=== PATIENT | female | born 1975 | race Caucasian/White ===

== ENCOUNTER 2016-03-19 10:37 | Emergency (ER) | payer OTHER ==
[2016-03-19 10:42] VITALS: BP 135/94; PULSE 104; TEMP 98.5; BMI 56.7
--- NOTE | 2016-03-19 11:53 | PDOC ---
History of Present Illness - General Chief Complaint: Cold Symptoms Stated Complaint: COUGH, SOB Time Seen by Provider: 03/19/16 11:28 History Source: Patient Exam Limitations: No Limitations - History of Present Illness Initial Comments: 03/19/16 11:52 CHIEF COMPLAINT: HISTORY OF PRESENT ILLNESS: peripheral neuropathy, breast CA s/p chemo/RTX/left mastectomy (completed chemo 2 yrs ago), HTN, fatty liver disease, anemia, asthma (on daily Advair and albuterol prn, completed one month course of prednisone for exacerbation one month ago, no recent hospitalizations), hiatal hernia, GERD, lumbar disc herniation and 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 She presents today complaining of three days of shortness of breath and cough productive of yellow and green sputum. She denies wheezing and has not been using nebulizer treatments at home. She denies fevers/chills. She had an episode of chest pain two days ago, but it has not recurred. She denies LE swelling above baseline or calf pain. She notes that her father was recently diagnosed with URI. She also reports that she has had shortness of breath/ decreased ET for about one month, but has not yet been evaluated for this. V/s on arrival are notable for P 104. REVIEW OF SYSTEMS: GENERAL/CONSTITUTIONAL: No fever or chills. No weakness. No weight change. HEAD, EYES, EARS, NOSE AND THROAT: No change in vision. No ear pain or discharge. No sore throat. CARDIOVASCULAR: Chest pain two days ago. RESPIRATORY: See HPI. GASTROINTESTINAL: No nausea, vomiting, diarrhea or constipation. GENITOURINARY: No dysuria, frequency, or change in urination. MUSCULOSKELETAL: No joint or muscle swelling or pain. No neck or back pain. SKIN: No rash or easy bruising. NEUROLOGIC: No headache, vertigo, loss of consciousness, or loss of sensation. PSYCHIATRIC: No depression or anxiety. ENDOCRINE: No increased thirst. No abnormal weight change. HEMATOLOGIC/LYMPHATIC: History of anemia. History of DVTs on Xarelto. ALLERGIC/IMMUNOLOGIC: No hives or skin allergy. No latex allergy. PHYSICAL EXAM: GENERAL: The patient is awake, alert, and fully oriented, in no acute distress. ENT: Pupils equal, round and reactive to light, extraocular movements intact, sclera anicteric, conjunctiva clear. Neck supple. LUNGS: Mildly tachypneic. Clear to auscultation bilaterally. Normal excursion. No respiratory distress or use of accessory muscles. Coughing. CV: RRR, S1/S2, no MRG. Cap refill < 2 sec. ABDOMEN: Soft, obese, non-tender. EXTREMITIES: Trace LE edema bilaterally, no calf tenderness. NEUROLOGICAL: Normal speech, normal gait. CN II-XII grossly intact. PSYCH: Normal mood, normal affect. SKIN: Warm, dry, normal turgor, no rashes or lesions noted. Past History - Past Medical History Allergies/Adverse Reactions: Allergies Allergy/AdvReac Type Severity Reaction Status Date / Time No Known Drug Allergies Allergy Verified 03/19/16 10:43 Home Medications: Ambulatory Orders Omeprazole [Prilosec (RX)] 40 mg PO DAILY 05/20/12 Bupropion HCl [Wellbutrin Xl -] 150 mg PO TID 03/21/15 Gabapentin [Neurontin -] 300 mg PO TID 03/21/15 Valsartan/Hydrochlorothiazide [Valsartan-Hctz 320-25 mg Tab] 1 each PO DAILY 08/29 Aripiprazole 2 mg PO HS 07/17/15 Citalopram Hydrobromide [Citalopram HBr] 20 mg PO DAILY 07/17/15 Butalb/Acetaminophen/Caffeine [Vyfecs-Jmijyjkc-Kxpi 50-300-40] 1 each PO TID PRN 12/18/15 Albuterol 0.083% Nebulizer Marlyn [Ventolin 0.083% Nebulizer Soln -] 1 neb NEB QID PRN 01/09/16 Cyanocobalamin (Vitamin B-12) [Vitamin B12] 600 mcg PO DAILY 02/04/16 Fluticasone/Salmeterol [Advair Hfa 230-21 Mcg Inhaler] 1 inh PO BID 02/04/16 Iron 18 mg PO DAILY 02/04/16 Metformin HCl [Glucophage -] 500 mg PO BID 02/04/16 Pramipexole Dihydrochloride [Mirapex -] 0.25 mg PO BID 02/04/16 Rivaroxaban [Xarelto] 1 each PO DAILY 02/04/16 Tamoxifen Citrate 10 mg PO DAILY 02/04/16 Tiotropium [place] [Spiriva] 1 inh PO DAILY 02/04/16 Zaleplon 10 mg PO HS 02/04/16 Azithromycin [Zithromax 250mg Tablets -] 250 mg PO UTDICT #6 tab 03/19/16 Promethazine/Phenyleph/Codeine [Promethazine Vc-Codeine Syrup] 5 ml PO QID PRN # 118 ml MDD 20 mls 03/19/16 Anemia: Yes Asthma: Yes Cancer: Yes (breast LEFT) Cardiac Disorders: (DVTs) CVA: No COPD: No CHF: No DVT: Yes Dementia: No Diabetes: Yes GI Disorders: Yes (hiatal hernia & gerd) Disorders: Yes (microscopic hematuria) HTN: Yes Hypercholesterolemia: No Liver Disease: Yes (fatty liver) Psychiatric Problems: Yes (depression) Suicide Attempt (Hx): No Seizures: No Thyroid Disease: No - Surgical History Abdominal Surgery: No Appendectomy: No Cardiac Surgery: No Cholecystectomy: No Lung Surgery: No Neurologic Surgery: No Orthopedic Surgery: No - Reproductive History Cervical CA: No Dysfunctional Uterine Bleeding: No Ectopic : No Endometrial CA: No Polycystic Ovaries: No Tubal Ligation: No - Immunization History Immunization Up to Date: Yes - Psycho/Social/Smoking Cessation Hx Anxiety: No Suicidal Ideation: No Smoking Status: Yes Smoking History: Former smoker Have you smoked in the past 12 months: No Number of Cigarettes Smoked Daily: 0 If you are a former smoker, when did you quit?: 21 YRS Cigars Per Day: 0 Information on smoking cessation initiated: No Hx Alcohol Use: Yes (SOCIAL) Drug/Substance Use Hx: No Substance Use Type: None Hx Substance Use Treatment: Yes (6 YEARS AGO) *Physical Exam - Vital Signs Last Vital Signs Temp Pulse Resp BP Pulse Ox 98.5 F 104 H 20 135/94 98 03/19/16 10:39 03/19/16 10:39 03/19/16 10:39 03/19/16 10:39 03/19/16 10:39 ED Treatment Course - LABORATORY CBC & Chemistry Diagram: 03/19/16 12:23 03/19/16 12:23 - ADDITIONAL ORDERS Additional order review: Laboratory Results 03/19/16 11:28 Urine HCG, Qual Negative Medical Decision Making - Medical Decision Making 03/19/16 13:08 A/P: 40 year old female with shortness of breath/MADDEN and cough productive of yellow/green sputum. Suspect URI vs PNA vs asthma exacerbation vs. possible COPD with long smoking history. PE considered but not most likely etiology as has been taking Xarelto, also has sick contact with similar symptoms. -EKG and cardiac profile (episode of chest pain 2 days ago) -Labs including CBC, comp, BNP -CXR to rule out infiltrate -DuoNeb for cough/SOB -Influenza swab -Reassess Hgb 9.7, baseline 03/19/16 13:22 TNI <0.02. BNP within normal limits at 18. CXR: no infiltrate Flu neg Patient feeling better after DuoNeb *DC/Admit/Observation/Transfer Diagnosis at time of Disposition: Cough - Discharge Dispostion Disposition: HOME Condition at time of disposition: Improved Admit: No - Prescriptions Prescriptions: Promethazine/Phenyleph/Codeine [Promethazine Vc-Codeine Syrup] 5 ml PO QID PRN # 118 ml MDD 20 mls PRN Reason: Cough Azithromycin [Zithromax 250mg Tablets -] 250 mg PO UTDICT #6 tab - Referrals Referrals: Tyrone Rodriguez MD [Primary Care Provider] - - Patient Instructions Printed Discharge Instructions: DI for Acute Bronchitis Additional Instructions: You were seen today for productive cough and shortness of breath. Your chest xray and lab work (including cardiac labs) were all normal. Continue all of your prescribed medications. Take azithromycin as prescribed for bronchitis and codeine/phenergan syrup for cough when you are not driving or working. 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 Return here for recurrent chest pain, worsening shortness of breath, or any other concerning symptoms. - Post Discharge Activity Work/School Note: Back to Work
[2016-03-19] MEDS ORDERED: ALBUTEROL SO4 2.5/IPRATROPIUM 0.5 INH SOL 3 ML VIAL.NEB. NEB ONE ×2 (12:38→12:50)
[2016-03-19 12:46] LABS: BASOPHIL 0.7 % (0-2.0); EOSINOPHIL 3.3 % (0-4.5); MCH 21.1 pg (25.7-33.7); MCHC 31.7 g/dl (32.0-36.0); MEAN CELL VOLUME 66.6 fl (80-96); MEAN PLT VOLUME 9.7 fl (7.5-11.1); NEUTROPHILS 70.2 % (42.8-82.8); PLATELET COUNT 224 K/MM3 (134-434); WHITE BLOOD COUNT 8.5 K/mm3 (4.0-10.0)
[2016-03-19 13:00] LABS: INR 1.08 (0.82-1.09); PROTHROMBIN TIME (PATIENT) 11.9 SEC (9.98-11.88)
[2016-03-19 13:13] LABS: ALBUMIN 3.3 g/dl (3.4-5.0); ANION GAP 8 (8-16); CALCIUM 8.3 mg/dL (8.5-10.1); CO2 25 mmol/L (21-32); CREATININE 0.8 mg/dL (0.55-1.02); GLUCOSE,RANDOM 114 mg/dL (74-106); SGOT/AST 22 U/L (15-37); SGPT/ALT 24 U/L (12-78)
[2016-03-19 13:17] LABS: ALK PHOS 93 U/L (45-117); BILIRUBIN,TOTAL 0.2 mg/dL (0.2-1.0); TOT PROT 7.5 g/dl (6.4-8.2); TROPONIN I < 0.02 ng/ml (0.00-0.05)
--- NOTE | 2016-03-20 16:31 | EKG ---
Test Reason : Blood Pressure : / mmHG Vent. Rate : 087 BPM Atrial Rate : 087 BPM P-R Int : 158 ms QRS Dur : 088 ms QT Int : 372 ms P-R-T Axes : 017 008 042 degrees QTc Int : 447 ms POOR DATA QUALITY, INTERPRETATION MAY BE ADVERSELY AFFECTED NORMAL SINUS RHYTHM NORMAL ECG WHEN COMPARED WITH ECG OF 04-FEB-2016 12:09, NO SIGNIFICANT CHANGE WAS FOUND Confirmed by NANO RAWLS, CARLOS ALBERTO ([id number]) on 03/20/2016 4:30:42 PM Referred By: NICKY Confirmed By:CARLOS ALBERTO MCGILL MD
== END 2016-03-19 13:34 | disposition home or self-care (01) ==
LOC: JERFT 10:37
PROC: 3E0F7GC Introduction of Other Therapeutic Substance into Respiratory Tract, Via Natural or Artificial Opening (ICD-10-PCS; principal; 2016-03-19)
DX: R05 Cough (principal); Z85.3 Personal history of malignant neoplasm of breast; I10 Essential (primary) hypertension; J45.909 Unspecified asthma, uncomplicated; K21.9 Gastro-esophageal reflux disease without esophagitis; Z79.01 Long term (current) use of anticoagulants; Z86.718 Personal history of other venous thrombosis and embolism; K76.0 Fatty (change of) liver, not elsewhere classified; Z87.891 Personal history of nicotine dependence
CPT/HCPCS: 36415; 71020-TC; 80053; 82550; 83880; 84484; 84703; 85025; 85610; 87804; 93005; 93010; 94640; 99281-25

== ENCOUNTER 2016-05-20 12:05 | Emergency (ER) | payer OTHER ==
[2016-05-20 12:15] VITALS: BP 161/103; PULSE 89; TEMP 99; BMI 58.3
[2016-05-20] MEDS ORDERED: ALBUTEROL SO4 2.5/IPRATROPIUM 0.5 INH SOL 3 ML VIAL.NEB. NEB ONE ×2 (13:13)
--- NOTE | 2016-05-20 13:13 | PDOC ---
History of Present Illness - General Chief Complaint: Respiratory Stated Complaint: DIFF BREATHING, WHEEZING Time Seen by Provider: 05/20/16 12:45 - History of Present Illness Initial Comments: 05/20/16 15:19 Chief complaint: Nasal congestion, hoarseness, and wheezing History of present illness: Patient with severe asthma complains of above symptoms for several days, worsening. Spoke to her doctor, who recommended she be evaluated in the emergency room. She is using her home nebulizer. She denies chest pain or shortness of breath Review of systems: As above. In addition, no fever/chills, sore throat, chest pain, abdominal pain, nausea, vomiting, diarrhea, urinary tract symptoms Past medical history: Extensive past medical history including schizophrenia, asthma, der-bzyezjm-[id number] diabetes, breast cancer, and blood clots Medications: Omeprazole, Wellbutrin, gabapentin, fell losartan hydrochlorothiazide, citalopram, albuterol, metformin, Mirapex, xarelto, tamoxifen, Spiriva, and recently azithromycin and promethazine with codeine ALLERGIES: None Social history: Functional, lives with family, no tobacco alcohol or drugs known Family history: Reviewed and positive for diabetes Physical exam: Alert oriented cooperative in no acute distress. Respiratory status appears stable without tachypnea or dyspnea. Voice is hoarse. Afebrile, vital signs show mildly elevated blood pressure and pulse but normal oxygen saturation of 99% and normal respiratory rate of 16 and unlabored There is no stridor but voice is hoarse. PERRLA, fundi benign, ENT is clear except for mild nasal congestion. Specifically, there is not injected, there is no erythema, exudate, swelling, or mass in the oropharynx and no evidence of angioedema in the posterior pharynx , tongue, lips, or face. Neck supple without bruit mass or nodes Lungs are clear to P&A, full breath sounds throughout bilaterally, no wheezing rales or rhonchi CV regular without murmur rub or gallop Abdomen benign Extremities no CCE. No calf swelling or tenderness Neurological C2 to 12 intact. No focal sensory or motor deficits. Gait stable and unimpaired Skin clear, no rash, adequate turgor and what mucous membranes Impression: Patient appears to have an upper respiratory infection with laryngitis. Breath sounds are not diminished and there is no wheezing or dyspnea , therefore this does not appear to be an asthma attack or bronchospasm. Plan: Consider symptomatic treatment, augment steroid therapy as recommended by primary physician, and follow up as directed. Return to ER if there is shortness of breath, chest pain, or fever. Patient fully ambulatory and in no distress upon discharge with family member to follow-up as directed Past History - Past Medical History Allergies/Adverse Reactions: Allergies Allergy/AdvReac Type Severity Reaction Status Date / Time No Known Drug Allergies Allergy Verified 05/20/16 12:10 Home Medications: Ambulatory Orders Omeprazole [Prilosec (RX)] 40 mg PO DAILY 05/20/12 Bupropion HCl [Wellbutrin Xl -] 150 mg PO TID 03/21/15 Gabapentin [Neurontin -] 300 mg PO TID 03/21/15 Valsartan/Hydrochlorothiazide [Valsartan-Hctz 320-25 mg Tab] 1 each PO DAILY 08/29 Aripiprazole 2 mg PO HS 07/17/15 Citalopram Hydrobromide [Citalopram HBr] 20 mg PO DAILY 07/17/15 Butalb/Acetaminophen/Caffeine [Dmfmer-Zafodhje-Zlvq 50-300-40] 1 each PO TID PRN 12/18/15 Albuterol 0.083% Nebulizer Marlyn [Ventolin 0.083% Nebulizer Soln -] 1 neb NEB QID PRN 01/09/16 Cyanocobalamin (Vitamin B-12) [Vitamin B12] 600 mcg PO DAILY 02/04/16 Fluticasone/Salmeterol [Advair Hfa 230-21 Mcg Inhaler] 1 inh PO BID 02/04/16 Iron 18 mg PO DAILY 02/04/16 Metformin HCl [Glucophage -] 500 mg PO BID 02/04/16 Pramipexole Dihydrochloride [Mirapex -] 0.25 mg PO BID 02/04/16 Rivaroxaban [Xarelto] 1 each PO DAILY 02/04/16 Tamoxifen Citrate 10 mg PO DAILY 02/04/16 Tiotropium [place] [Spiriva] 1 inh PO DAILY 02/04/16 Zaleplon 10 mg PO HS 02/04/16 Azithromycin [Zithromax 250mg Tablets -] 250 mg PO UTDICT #6 tab 03/19/16 Promethazine/Phenyleph/Codeine [Promethazine Vc-Codeine Syrup] 5 ml PO QID PRN # 118 ml MDD 20 mls 03/19/16 Anemia: Yes Asthma: Yes Cancer: Yes (breast LEFT) Cardiac Disorders: (DVTs) CVA: No COPD: No CHF: No DVT: Yes Dementia: No Diabetes: Yes GI Disorders: Yes (hiatal hernia & gerd) Disorders: Yes (microscopic hematuria) HTN: Yes Hypercholesterolemia: No Liver Disease: Yes (fatty liver) Psychiatric Problems: Yes (depression) Suicide Attempt (Hx): No Seizures: No Thyroid Disease: No - Surgical History Abdominal Surgery: No Appendectomy: No Cardiac Surgery: No Cholecystectomy: No Lung Surgery: No Neurologic Surgery: No Orthopedic Surgery: No - Reproductive History Cervical CA: No Dysfunctional Uterine Bleeding: No Ectopic : No Endometrial CA: No Polycystic Ovaries: No Tubal Ligation: No - Immunization History Immunization Up to Date: Yes - Psycho/Social/Smoking Cessation Hx Anxiety: No Suicidal Ideation: No Smoking Status: Yes Smoking History: Former smoker Have you smoked in the past 12 months: No Number of Cigarettes Smoked Daily: 0 If you are a former smoker, when did you quit?: 21 YRS Cigars Per Day: 0 Information on smoking cessation initiated: No Hx Alcohol Use: No Drug/Substance Use Hx: No Substance Use Type: None Hx Substance Use Treatment: Yes (6 YEARS AGO) *Physical Exam - Vital Signs Last Vital Signs Temp Pulse Resp BP Pulse Ox 99 F 89 26 H 161/103 99 05/20/16 12:05 05/20/16 12:05 05/20/16 12:05 05/20/16 12:05 05/20/16 12:05 *DC/Admit/Observation/Transfer Diagnosis at time of Disposition: Viral upper respiratory tract infection - Discharge Dispostion Disposition: HOME Condition at time of disposition: Stable Admit: No - Referrals Referrals: Tyrone Rodriguez MD [Primary Care Provider] - 2 Days - Patient Instructions Printed Discharge Instructions: DI for Viral Upper Respiratory Infection -- Adult Additional Instructions: Increase prednisone to 40 mg daily. Taper as directed by your doctor Return to ER if you develop worsening shortness of breath, chest pain, fever, or productive cough Use your nebulizer at home as needed. Take your other medications as directed.
[2016-05-20] MEDS ORDERED: DEXAMETHASONE SOD PHOSPHATE 4 MG/1 ML VIAL IM ONE (13:54)
[2016-05-20] MEDS ORDERED: DEXAMETHASONE SOD PHOSPHATE 4 MG/1 ML VIAL ONE (14:09)
== END 2016-05-20 14:20 | disposition home or self-care (01) ==
LOC: FER 12:05
PROC: 3E0F7GC Introduction of Other Therapeutic Substance into Respiratory Tract, Via Natural or Artificial Opening (ICD-10-PCS; principal; 2016-05-20)
PROC: 3E023GC Introduction of Other Therapeutic Substance into Muscle, Percutaneous Approach (ICD-10-PCS; 2016-05-20)
DX: J06.9 Acute upper respiratory infection, unspecified (principal); B97.89 Other viral agents as the cause of diseases classified elsewhere; K76.0 Fatty (change of) liver, not elsewhere classified; Z85.3 Personal history of malignant neoplasm of breast; Z86.718 Personal history of other venous thrombosis and embolism; Z79.01 Long term (current) use of anticoagulants; F32.9 Major depressive disorder, single episode, unspecified; Z87.891 Personal history of nicotine dependence; Z79.84 Long term (current) use of oral hypoglycemic drugs
CPT/HCPCS: 94640; 96372; 99283-25

== ENCOUNTER 2016-06-16 17:09 | Emergency (ER) | payer OTHER ==
[2016-06-16 17:25] VITALS: BP 137/79; PULSE 102; TEMP 98.9; BMI 58.6
--- NOTE | 2016-06-16 18:12 | PDOC ---
History of Present Illness - General History Source: Patient Exam Limitations: No Limitations - History of Present Illness Initial Comments: 06/16/16 18:37 Patient is a 41 year old female with a significant past medical history of NIDDM , peripheral neuropathy, breast CA s/p chemo/RTX/left mastectomy (completed chemo 2013), HTN, fatty liver disease, anemia, asthma (on daily Advair and albuterol prn, completed one month course of prednisone for exacerbation one month ago, no recent hospitalizations), hiatal hernia, GERD, lumbar disc herniation and DVT x 2 (on Xarelto) who presents today to the ED with complaint of nausea, vomiting, diarrhea and fever since yesterday. Patient reports 15 episodes of brown non bilious non bloody diarrhea and 3 episodes of vomiting non bilious non bloody. She reports left lumbar pain that radiates to the LLQ. She notes that 3:30 PM. She denies dysuria, hematuria, urgency, hesitancy. SH: former smoker 21 years. Denies alcohol or drug. <Crista Jewell - Last Filed: 06/16/16 18:39> <Didi Gonzalez - Last Filed: 06/16/16 22:02> - General Chief Complaint: Vomiting/Diarrhea Stated Complaint: VOMITING/DIARRHEA/BACK PAIN Time Seen by Provider: 06/16/16 18:09 Past History <Crista Jewell - Last Filed: 06/16/16 18:39> - Past Medical History Anemia: Yes Asthma: Yes Cancer: Yes (breast LEFT) Cardiac Disorders: (DVTs) CVA: No COPD: No CHF: No DVT: Yes Dementia: No Diabetes: Yes GI Disorders: Yes (hiatal hernia & gerd) Disorders: Yes (microscopic hematuria) HTN: Yes Hypercholesterolemia: No Liver Disease: Yes (fatty liver) Psychiatric Problems: Yes (depression) Suicide Attempt (Hx): No Seizures: No Thyroid Disease: No - Surgical History Abdominal Surgery: No Appendectomy: No Cardiac Surgery: No Cholecystectomy: No Lung Surgery: No Neurologic Surgery: No Orthopedic Surgery: No - Reproductive History Cervical CA: No Dysfunctional Uterine Bleeding: No Ectopic : No Endometrial CA: No Polycystic Ovaries: No Tubal Ligation: No - Immunization History Immunization Up to Date: Yes - Psycho/Social/Smoking Cessation Hx Anxiety: No Suicidal Ideation: No Smoking Status: Yes Smoking History: Former smoker Have you smoked in the past 12 months: No Number of Cigarettes Smoked Daily: 0 If you are a former smoker, when did you quit?: 21 YRS Cigars Per Day: 0 Information on smoking cessation initiated: No Hx Alcohol Use: No Drug/Substance Use Hx: No Substance Use Type: None Hx Substance Use Treatment: Yes (6 YEARS AGO) <CarlosDidi Tanika - Last Filed: 06/16/16 22:02> - Past Medical History Allergies/Adverse Reactions: Allergies Allergy/AdvReac Type Severity Reaction Status Date / Time No Known Drug Allergies Allergy Verified 06/16/16 17:25 Home Medications: Ambulatory Orders Omeprazole [Prilosec (RX)] 40 mg PO DAILY 05/20/12 Bupropion HCl [Wellbutrin Xl -] 150 mg PO TID 03/21/15 Gabapentin [Neurontin -] 300 mg PO TID 03/21/15 Valsartan/Hydrochlorothiazide [Valsartan-Hctz 320-25 mg Tab] 1 each PO DAILY 08/29 Aripiprazole 2 mg PO HS 07/17/15 Citalopram Hydrobromide [Citalopram HBr] 20 mg PO DAILY 07/17/15 Butalb/Acetaminophen/Caffeine [Xnrifn-Coxwppov-Oghh 50-300-40] 1 each PO TID PRN 12/18/15 Albuterol 0.083% Nebulizer Marlyn [Ventolin 0.083% Nebulizer Soln -] 1 neb NEB QID PRN 01/09/16 Cyanocobalamin (Vitamin B-12) [Vitamin B12] 600 mcg PO DAILY 02/04/16 Fluticasone/Salmeterol [Advair Hfa 230-21 Mcg Inhaler] 1 inh PO BID 02/04/16 Iron 18 mg PO DAILY 02/04/16 Metformin HCl [Glucophage -] 500 mg PO BID 02/04/16 Pramipexole Dihydrochloride [Mirapex -] 0.25 mg PO BID 02/04/16 Rivaroxaban [Xarelto] 1 each PO DAILY 02/04/16 Tamoxifen Citrate 10 mg PO DAILY 02/04/16 Tiotropium [place] [Spiriva] 1 inh PO DAILY 02/04/16 Zaleplon 10 mg PO HS 02/04/16 Azithromycin [Zithromax 250mg Tablets -] 250 mg PO UTDICT #6 tab 03/19/16 Promethazine/Phenyleph/Codeine [Promethazine Vc-Codeine Syrup] 5 ml PO QID PRN # 118 ml MDD 20 mls 03/19/16 Ondansetron [Zofran Odt -] 4 mg SL TID PRN #6 od.tablet 06/16/16 Review of Systems - Review of Systems Able to Perform ROS?: Yes Comments:: 06/16/16 18:38 CONSTITUTIONAL: Absent: fever, chills, diaphoresis, generalized weakness, malaise, loss of appetite HEENT: Absent: rhinorrhea, nasal congestion, throat pain, throat swelling, difficulty swallowing, mouth swelling, ear pain, eye pain, visual Changes CARDIOVASCULAR: Absent: chest pain, syncope, palpitations, irregular heart rate, lightheadedness , peripheral edema RESPIRATORY: Absent: cough, shortness of breath, dyspnea with exertion, orthopnea, wheezing, stridor, hemoptysis GASTROINTESTINAL: Present: nausea, vomiting, diarrhea Absent: abdominal pain, abdominal distension, constipation, melena, hematochezia GENITOURINARY: Absent: dysuria, frequency, urgency, hesitancy, hematuria, flank pain, genital pain MUSCULOSKELETAL: Present: lumbar pain Absent: myalgia, arthralgia, joint swelling SKIN: Absent: rash, itching, pallor HEMATOLOGIC/IMMUNOLOGIC: Absent: easy bleeding, easy bruising, lymphadenopathy, frequent infections ENDOCRINE: Absent: unexplained weight gain, unexplained weight loss, heat intolerance, cold intolerance NEUROLOGIC: Absent: headache, focal weakness or paresthesias, dizziness, unsteady gait, seizure, mental status changes, bladder or bowel incontinence PSYCHIATRIC: Absent: anxiety, depression, suicidal or homicidal ideation, hallucinations. <Crista Jewell - Last Filed: 06/16/16 18:39> *Physical Exam - Vital Signs Last Vital Signs Temp Pulse Resp BP Pulse Ox 98.9 F 102 H 18 137/79 96 06/16/16 17:21 06/16/16 17:21 06/16/16 17:21 06/16/16 17:21 06/16/16 17:21 - Physical Exam Comments: 06/16/16 18:40 GENERAL: Well developed, well nourished. Awake and alert. No acute distress. HEENT: Normocephalic, atraumatic. PERRLA, EOMI. No conjunctival pallor. Sclera are non- icteric. Moist mucous membranes. Oropharynx is clear. NECK: Supple. Full ROM. No JVD. Carotid pulses 2+ and symmetric, without bruits. No thyromegaly. No lymphadenopathy. CARDIOVASCULAR: Regular rate and rhythm. No murmurs, rubs, or gallops. Distal pulses are 2+ and symmetric. PULMONARY: No evidence of respiratory distress. Lungs clear to auscultation bilaterally. No wheezing, rales or rhonchi. ABDOMINAL: Soft. Non-tender. Non-distended. No rebound or guarding. No organomegaly. Normoactive bowel sounds. MUSCULOSKELETAL +mild lumbar tenderness on palpation. Normal range of motion at all joints. No bony deformities. No CVA tenderness. EXTREMITIES: No cyanosis. No clubbing. No edema. No calf tenderness. SKIN: Warm and dry. Normal capillary refill. No rashes. No jaundice. NEUROLOGICAL: Alert, awake, appropriate. Cranial nerves 2-12 intact. No deficits to light touch and temperature in face, upper extremities and lower extremities. No motor deficits in the in face, upper extremities and lower extremities. Normoreflexic in the upper and lower extremities. Normal speech. PSYCHIATRIC: Cooperative. Good eye contact. Appropriate mood and affect. <Crista Jewell - Last Filed: 06/16/16 18:39> - Vital Signs Last Vital Signs Temp Pulse Resp BP Pulse Ox 98.9 F 102 H 18 137/79 96 06/16/16 17:21 06/16/16 17:21 06/16/16 17:21 06/16/16 17:21 06/16/16 17:21 <Didi Gonzalez - Last Filed: 06/16/16 22:02> ED Treatment Course - Medications Given in the ED: ED Medications Discontinued Medications Generic Name Dose Route Start Last Admin Trade Name Freq PRN Reason Stop Dose Admin Ondansetron HCl 4 mg 06/16/16 18:18 06/16/16 18:34 Zofran Injection IVPB 06/16/16 18:19 4 mg ONCE ONE Administration <Crista Jewlel - Last Filed: 06/16/16 18:39> - LABORATORY CBC & Chemistry Diagram: 06/16/16 18:31 04/03/17 18:39 <Didi Gonzalez - Last Filed: 06/16/16 22:02> Medical Decision Making - Medical Decision Making 06/16/16 21:33 41 yo female p/w NVD for 1 day -benign abd exam - <Didi Gonzalez - Last Filed: 06/16/16 22:02> *DC/Admit/Observation/Transfer - Attestations Scribe Attestion: 06/16/16 18:41 Documentation prepared by WILLIAM Serna, acting as medical equipment sales for Didi Gonzalez MD. <Crista Jewell - Last Filed: 06/16/16 18:39> <Didi Gonzalez - Last Filed: 06/16/16 22:02> Diagnosis at time of Disposition: Gastroenteritis - Discharge Dispostion Disposition: HOME Condition at time of disposition: Stable - Prescriptions Prescriptions: Ondansetron [Zofran Odt -] 4 mg SL TID PRN #6 od.tablet PRN Reason: Nausea And/Or Vomiting - Referrals Referrals: Tyrone Rodriguez MD [Primary Care Provider] - - Patient Instructions Printed Discharge Instructions: Rotavirus, DI for Viral Gastroenteritis -- Adult Additional Instructions: please mixing picker tender your antibiotics at your pharmacy return if your symptoms persist
[2016-06-16] MEDS ORDERED: ONDANSETRON 4 MG/2 ML VIAL IVPB ONE (18:18)
[2016-06-16] MEDS ORDERED: SODIUM CHLORIDE 1,000 ML IV STA (18:18)
[2016-06-16] MEDS ORDERED: ONDANSETRON 4 MG/2 ML VIAL ONE (18:21)
[2016-06-16 18:48] LABS: BASOPHIL 0.7 % (0-2.0); EOSINOPHIL 1.2 % (0-4.5); MCHC 30.7 g/dl (32.0-36.0); MEAN CELL VOLUME 60.3 fl (80-96); MEAN PLT VOLUME 9.2 fl (7.5-11.1); NEUTROPHILS 77.7 % (42.8-82.8); PLATELET COUNT 227 K/MM3 (134-434); WHITE BLOOD COUNT 6.9 K/mm3 (4.0-10.0)
[2016-06-16 18:53] LABS: MCH 18.5 pg (25.7-33.7)
[2016-06-16 19:59] LABS: ANISOCYTOSIS 2+; HYPOCHROMIA 3+; MICROCYTOSIS 2+; PLATELET ESTIMATE ADEQUATE (NORMAL)
[2016-06-16 20:35] LABS: ALBUMIN 3.1 g/dl (3.4-5.0); ALK PHOS 80 U/L (45-117); ANION GAP 11 (8-16); BILIRUBIN,TOTAL 0.2 mg/dL (0.2-1.0); CALCIUM 7.8 mg/dL (8.5-10.1); CO2 22 mmol/L (21-32); CREATININE 0.9 mg/dL (0.55-1.02); GLUCOSE,RANDOM 84 mg/dL (74-106); SGOT/AST 53 U/L (15-37); SGPT/ALT 42 U/L (12-78); TOT PROT 7.4 g/dl (6.4-8.2)
== END 2016-06-16 22:56 | disposition home or self-care (01) ==
LOC: JER 17:09
PROC: 3E033GC Introduction of Other Therapeutic Substance into Peripheral Vein, Percutaneous Approach (ICD-10-PCS; principal; 2016-06-16)
DX: K52.9 Noninfective gastroenteritis and colitis, unspecified (principal); I10 Essential (primary) hypertension; J45.909 Unspecified asthma, uncomplicated; N11.9 Chronic tubulo-interstitial nephritis, unspecified; Z79.84 Long term (current) use of oral hypoglycemic drugs; E78.00 Pure hypercholesterolemia, unspecified; K76.0 Fatty (change of) liver, not elsewhere classified; G62.9 Polyneuropathy, unspecified; Z85.3 Personal history of malignant neoplasm of breast
CPT/HCPCS: 36415; 80053; 85025; 96374; 99282-25

== ENCOUNTER 2016-10-18 03:24 | Emergency (ER) | payer OTHER ==
[2016-10-18 03:50] VITALS: BP 89/72; PULSE 88; TEMP 97.6; BMI 56.7
--- NOTE | 2016-10-18 04:14 | PDOC ---
Attending Attestation - Resident Resident Name: Ashok Denny - HPI HPI: 10/18/16 05:27 Pt comes with right sided truncal rash at T6 area. Painful. Pt has had shingles in the past on her face. 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 Pt was given NSS and valtrex and ofirmev in the ER. Home with valtrex and motrin. - Physicial Exam PE: 10/18/16 05:29 Agree with resident exam - Medical Decision Making 10/18/16 05:29 Home with valtex and analgesia.
[2016-10-18] MEDS ORDERED: valACYclovir HCL 1000 MG TABLET PO ONE (04:15)
[2016-10-18] MEDS ORDERED: ACETAMINOPHEN 1000 MG/100 ML VIAL (NON FORMULARY) IVPB ONE (04:16)
[2016-10-18] MEDS ORDERED: SODIUM CHLORIDE 0.9% 500 ML INFUS.BAG IV ONE (04:16)
[2016-10-18] MEDS ORDERED: ACETAMINOPHEN INJECTION 100 ML IVPB ONE (04:31)
--- NOTE | 2016-10-18 05:10 | PDOC ---
History of Present Illness - General Chief Complaint: Rash Stated Complaint: RASH Time Seen by Provider: 10/18/16 03:57 - History of Present Illness Initial Comments: 10/18/16 05:05 41 yo F with complex medical history presents with rash. She states that 24 hours ago developed rash under right breast fold below nipple. Rash has had rapid progression in 24 hours with redness, and pain associated with it. Reports taking 3 different OTC topical creams. Pt. also endorses 3 episodes of vomiting, and lightheadedness within the past 24 hours. Denies hemoptysis, fevers/chills, cough, SOB. Adequate PO intake/fluid hydration. States that she has been on 4 day oral prednisone and antibiotic regimen for recent bronchitis. Past History - Past Medical History Allergies/Adverse Reactions: Allergies Allergy/AdvReac Type Severity Reaction Status Date / Time No Known Drug Allergies Allergy Verified 10/18/16 03:44 Home Medications: Ambulatory Orders Omeprazole [Prilosec (RX)] 40 mg PO DAILY 05/20/12 Bupropion HCl [Wellbutrin Xl -] 150 mg PO TID 03/21/15 Gabapentin [Neurontin -] 300 mg PO TID 03/21/15 Valsartan/Hydrochlorothiazide [Valsartan-Hctz 320-25 mg Tab] 1 each PO DAILY 08/29 Aripiprazole 2 mg PO HS 07/17/15 Citalopram Hydrobromide [Citalopram HBr] 20 mg PO DAILY 07/17/15 Butalb/Acetaminophen/Caffeine [Ztfxai-Kygaspgd-Wcrp 50-300-40] 1 each PO TID PRN 12/18/15 Albuterol 0.083% Nebulizer Marlyn [Ventolin 0.083% Nebulizer Soln -] 1 neb NEB QID PRN 01/09/16 Cyanocobalamin (Vitamin B-12) [Vitamin B12] 600 mcg PO DAILY 02/04/16 Fluticasone/Salmeterol [Advair Hfa 230-21 Mcg Inhaler] 1 inh PO BID 02/04/16 Iron 18 mg PO DAILY 02/04/16 Metformin HCl [Glucophage -] 500 mg PO BID 02/04/16 Pramipexole Dihydrochloride [Mirapex -] 0.25 mg PO BID 02/04/16 Rivaroxaban [Xarelto] 1 each PO DAILY 02/04/16 Tamoxifen Citrate 10 mg PO DAILY 02/04/16 Tiotropium [place] [Spiriva] 1 inh PO DAILY 02/04/16 Zaleplon 10 mg PO HS 02/04/16 Promethazine/Phenyleph/Codeine [Promethazine Vc-Codeine Syrup] 5 ml PO QID PRN # 118 ml MDD 20 mls 03/19/16 Ondansetron [Zofran Odt -] 4 mg SL TID PRN #6 od.tablet 06/16/16 Ibuprofen [Motrin -] 600 mg PO TID #30 tablet 10/18/16 Valacyclovir HCl [Valtrex -] 1,000 mg PO TID #21 tablet 10/18/16 Anemia: Yes (Iron deficiency) Asthma: Yes Cancer: Yes (breast LEFT) Cardiac Disorders: (DVTs) CVA: No COPD: No CHF: No DVT: Yes Dementia: No Diabetes: Yes GI Disorders: Yes (hiatal hernia, GERD) Disorders: Yes (microscopic hematuria) HTN: Yes Hypercholesterolemia: No Liver Disease: Yes (fatty liver) Psychiatric Problems: Yes (Depression, anxiety) Suicide Attempt (Hx): No Seizures: No Thyroid Disease: No Other medical history: Lt arm lymphedema, fibromyalgia, migraines, restless legs - Surgical History Abdominal Surgery: No Appendectomy: No Cardiac Surgery: No Cholecystectomy: No Lung Surgery: No Neurologic Surgery: No Orthopedic Surgery: No - Reproductive History Cervical CA: No Dysfunctional Uterine Bleeding: No Ectopic : No Endometrial CA: No Polycystic Ovaries: No Tubal Ligation: No - Immunization History Immunization Up to Date: Yes - Psycho/Social/Smoking Cessation Hx Anxiety: No Suicidal Ideation: No Smoking Status: Yes Smoking History: Never smoked Have you smoked in the past 12 months: No Number of Cigarettes Smoked Daily: 0 If you are a former smoker, when did you quit?: 21 YRS Cigars Per Day: 0 Information on smoking cessation initiated: No Hx Alcohol Use: No Drug/Substance Use Hx: No Substance Use Type: None Hx Substance Use Treatment: Yes (6 YEARS AGO) Review of Systems - Review of Systems Comments:: 10/18/16 05:11 GENERAL/CONSTITUTIONAL: No fever or chills. No weakness. HEAD, EYES, EARS, NOSE AND THROAT: No change in vision. No ear pain or discharge. No sore throat. CARDIOVASCULAR: No chest pain or shortness of breath RESPIRATORY: No cough, wheezing, or hemoptysis. GASTROINTESTINAL: +vomiting. No diarrhea or constipation. GENITOURINARY: No dysuria, frequency, or change in urination. MUSCULOSKELETAL: No joint or muscle swelling or pain. No neck or back pain. SKIN:+ rash NEUROLOGIC: No headache, vertigo, loss of consciousness, or change in strength/ sensation. ENDOCRINE: No increased thirst. No abnormal weight change HEMATOLOGIC/LYMPHATIC: No anemia, easy bleeding, or history of blood clots. ALLERGIC/IMMUNOLOGIC: No hives or skin allergy. *Physical Exam - Vital Signs Last Vital Signs Temp Pulse Resp BP Pulse Ox 97.6 F 88 20 89/72 96 10/18/16 03:44 10/18/16 03:44 10/18/16 03:44 10/18/16 03:44 10/18/16 03:44 - Physical Exam Comments: 10/18/16 05:13 GENERAL: Awake, alert, and fully oriented, in no acute distress HEAD: No signs of trauma, normocephalic, atraumatic EYES: PERRLA, EOMI, sclera anicteric, conjunctiva clear ENT: Auricles normal inspection, hearing grossly normal, nares patent, oropharynx clear without exudates. Moist mucosa NECK: Normal ROM, supple, no lymphadenopathy, JVD, or masses LUNGS: No distress, speaks full sentences, clear to auscultation bilaterally HEART: Regular rate and rhythm, normal S1 and S2, no murmurs, rubs or gallops, peripheral pulses normal and equal bilaterally. EXTREMITIES: Normal inspection, Normal range of motion, no edema. No clubbing or cyanosis. SKIN: + Rash is non raised and extending from anterior to posterior inframmamry line. Erythematous rash extends in dermatomal distribution with coalescent center and vesicular border extending circumferentialy around trunk and side. , Warm, Dry, normal turgor. ED Treatment Course - Medications Given in the ED: ED Medications Discontinued Medications Generic Name Dose Route Start Last Admin Trade Name Freq PRN Reason Stop Dose Admin Acetaminophen 1,000 mg 10/18/16 04:16 10/18/16 04:48 Ofirmev Injection - IVPB 10/18/16 04:17 1,000 mg ONCE ONE Administration Sodium Chloride 1,000 ml 10/18/16 04:16 10/18/16 04:48 Normal Saline - IV 10/18/16 04:17 1,000 ml ONCE ONE Administration Medical Decision Making - Medical Decision Making 10/18/16 05:31 41 yo F with complex medical history presents with rash. She states that 24 hours ago she developed rash under right breast fold below nipple. Rash has had rapid progression in 24 hours with redness, and pain associated with it. + vomiting and lightheadedness. On physical exam rash is erythematous, non raised , extending from anterior to posterior inframmamry line in dermatomal distribution with coalescent center and vesicular borders. She endorses recent respiratory tract infection currently being treated with antibiotics and oral predisone. DDx: Shingles, Intertrigo ED Course: NaCl 1000 ml Acetaminophen 1000 mg Valacyclovir 1000 mg PO x 1 *DC/Admit/Observation/Transfer Diagnosis at time of Disposition: Shingles rash Qualifiers: Herpes zoster complications: without complications Qualified Code(s): B02.9 - Zoster without complications - Discharge Dispostion Disposition: HOME Admit: No - Prescriptions Prescriptions: Ibuprofen [Motrin -] 600 mg PO TID #30 tablet Valacyclovir HCl [Valtrex -] 1,000 mg PO TID #21 tablet - Referrals Referrals: Tyrone Rodriguez MD [Primary Care Provider] - - Patient Instructions Printed Discharge Instructions: DI for Shingles - Attestations Physician Attestion: 10/18/16 05:40 I, Dr. Ashok Denny, attest that this document has been prepared under my direction and personally reviewed by me in its entirety. I further attest, that it accurately reflects all work, treatment, procedures and medical decision -making performed by me.
== END 2016-10-18 05:32 | disposition home or self-care (01) ==
LOC: JER 03:24
PROC: 3E033GC Introduction of Other Therapeutic Substance into Peripheral Vein, Percutaneous Approach (ICD-10-PCS; principal; 2016-10-18)
DX: B02.9 Zoster without complications (principal); D50.9 Iron deficiency anemia, unspecified; J45.909 Unspecified asthma, uncomplicated; Z85.3 Personal history of malignant neoplasm of breast; I82.409 Acute embolism and thrombosis of unspecified deep veins of unspecified lower extremity; E11.9 Type 2 diabetes mellitus without complications; K21.9 Gastro-esophageal reflux disease without esophagitis; K44.9 Diaphragmatic hernia without obstruction or gangrene; R31.29 Other microscopic hematuria; I10 Essential (primary) hypertension; K76.0 Fatty (change of) liver, not elsewhere classified; F41.9 Anxiety disorder, unspecified; F32.9 Major depressive disorder, single episode, unspecified; M79.7 Fibromyalgia; G25.81 Restless legs syndrome
CPT/HCPCS: 96374; 99281-25

== ENCOUNTER 2017-01-24 22:26 | Emergency (ER) | payer OTHER ==
--- NOTE | 2017-01-24 23:40 | PDOC ---
Attending Attestation - Resident Resident Name: Kerline Velez - HPI HPI: 01/25/17 03:43 Pt comes with cough that is persistent despite the amoxil her PMD gave her. - Physicial Exam PE: 01/25/17 03:43 agree with resident exam. Pt is afebrile. Lungs clear, but pt is coughing. - Medical Decision Making 01/25/17 03:44 atypical pneumonia. Pt will be treated with zpak. Tyl #3 given in the ER. Pt hytdrated as she is not eating and drinking enough.
[2017-01-24] MEDS ORDERED: CEFTRIAXONE 1 GM in DEXTROSE 5%-WATER - 50 ML IVPB ONE (23:43)
[2017-01-24] MEDS ORDERED: AZITHROMYCIN IVPB 500 MG in DEXTROSE 5%-WATER - 250 ML IVPB ONE (23:43)
--- NOTE | 2017-01-24 23:52 | PDOC ---
History of Present Illness - General Chief Complaint: Cold Symptoms Stated Complaint: S.O.B Time Seen by Provider: 01/24/17 23:17 History Source: Patient Exam Limitations: No Limitations - History of Present Illness Initial Comments: 41 YOF with h/o recently diagnosed bronchitis (asthma (on Albuterol, Advair, Nebulizer), frequent bronchitis (states multiple times/year), PNA (states 4x), NIDDM (on metformin), DVT (x2 now on Xarelto), breast cancer (s/p surgical removal and now on Tamoxifen). She presents with SOB, cough with phlegm, fever up to 103, and one episode of vomiting today. Her symptoms actually started more than two weeks ago but have become acutely worse in the last 3 days. She saw her PCP two weeks ago who prescribed her an antibiotic for presumed bronchitis (no CXR). They switched the antibiotic three days ago because her symptoms were worsening, and she has been on Amoxicillin and Prednisone since then. She has required admission for asthma exacerbation before, but this was 4 years ago, and never required intubation. She has smoked for >21 years and had PFTs showing borderline COPD recently. Past History - Past Medical History Allergies/Adverse Reactions: Allergies Allergy/AdvReac Type Severity Reaction Status Date / Time No Known Drug Allergies Allergy Verified 01/24/17 23:16 Home Medications: Ambulatory Orders Albuterol Sulfate Inhaler - [Ventolin Hfa Inhaler -] 2 inh PO Q4H 01/24/17 Aripiprazole [Abilify -] 2 mg PO DAILY 01/24/17 Bupropion HCl [Wellbutrin Sr] 150 mg PO TID 01/24/17 Butalbital/Acetaminophen [Butalbital-Acetaminophn 50-300] 1 each PO TID Fluticasone/Salmeterol [Advair Hfa 230-21 Mcg Inhaler] 230 inh IH BID 01/24/17 Gabapentin 300 mg PO TID 01/24/17 Hydroxyzine Pamoate 25 mg PO DAILY 01/24/17 Iron Bis-Gly/FA/C/B12/Ca/Succ [Iron 21/7 Tablet] 1 each PO DAILY 01/24/17 Metformin HCl 500 mg PO BID 01/24/17 Omeprazole 20 mg PO DAILY 01/24/17 Pramipexole Dihydrochloride [Mirapex -] 0.25 mg PO BID 01/24/17 Tamoxifen Citrate 10 mg PO BID 01/24/17 Valsartan/Hydrochlorothiazide [Valsartan-Hctz 320-25 mg Tab] 1 each PO DAILY 01/30 Vitamin B Complex 1 each PO DAILY 01/24/17 Warfarin Sodium 10 mg PO TID 01/24/17 Azithromycin [Zithromax Tri-Davi (3 DAYS) -] 500 mg PO DAILY #3 tablet 01/25/17 Anemia: Yes (Iron deficiency) Asthma: Yes Cancer: Yes (breast LEFT) Cardiac Disorders: (DVTs) CVA: No COPD: No CHF: No DVT: Yes Dementia: No Diabetes: Yes GI Disorders: Yes (hiatal hernia, GERD) Disorders: Yes (microscopic hematuria) HTN: Yes Hypercholesterolemia: No Liver Disease: Yes (fatty liver) Psychiatric Problems: Yes (Depression, anxiety) Seizures: No Thyroid Disease: No - Surgical History Abdominal Surgery: No Appendectomy: No Cardiac Surgery: No Cholecystectomy: No Lung Surgery: No Neurologic Surgery: No Orthopedic Surgery: No - Reproductive History Cervical CA: No Dysfunctional Uterine Bleeding: No Ectopic : No Endometrial CA: No Polycystic Ovaries: No Tubal Ligation: No - Immunization History Immunization Up to Date: Yes - Suicide/Smoking/Psychosocial Hx Smoking Status: Yes Smoking History: Current some day smoker Have you smoked in the past 12 months: Yes Number of Cigarettes Smoked Daily: 0 If you are a former smoker, when did you quit?: 21 YRS Cigars Per Day: 0 Information on smoking cessation initiated: Yes Hx Alcohol Use: Yes (occasionally) Drug/Substance Use Hx: No Substance Use Type: None Hx Substance Use Treatment: Yes (6 YEARS AGO) Review of Systems - Review of Systems Constitutional: Yes: Fever. No: Unexplained wgt Loss HEENTM: No: Nose Congestion, Throat Pain Respiratory: Yes: Cough, Shortness of Breath, Productive cough (phlegm) Cardiac (ROS): No: Chest Pain, Palpitations ABD/GI: Yes: Vomiting (once). No: Constipated, Diarrhea, Nausea : No: Burning, Dysuria Musculoskeletal: No: Back Pain, Neck Pain Integumentary: No: Bruising, Rash Neurological: No: Headache, Numbness, Tingling, Weakness, Dizziness Endocrine: No: Unexplained Weight Gain, Unexplained Weight Loss *Physical Exam - Vital Signs Last Vital Signs Temp Pulse Resp BP Pulse Ox 98.4 F 92 H 18 114/87 98 01/24/17 23:11 01/24/17 23:11 01/24/17 23:11 01/24/17 23:11 01/24/17 23:11 - Physical Exam General Appearance: Yes: Nourished, Appropriately Dressed, Mild Distress, Obese , Other (answering appropriately, conversive though pauses mid-sentence to breathe) HEENT: positive: EOMI, CHANDA, Normal Voice, Hearing Grossly Normal. negative: Scleral Icterus (R), Scleral Icterus (L), Nasal Congestion Neck: positive: Trachea midline, Supple. negative: Tender, Rigid, Lymphadenopathy (R), Lymphadenopathy (L) Respiratory/Chest: positive: Lungs Clear, Respiratory Distress, Rapid RR (to about 30 breaths/minute), Wheezing (mild), Other (right upper chest wall with well-healed surgical scar from lumpectomy vs. port-a-cath). negative: Crackles , Rhonchi, Stridor Cardiovascular: positive: Regular Rhythm, Regular Rate. negative: Murmur Gastrointestinal/Abdominal: positive: Normal Bowel Sounds, Soft. negative: Tender, Organomegaly, Pulsatile Mass, Guarding Musculoskeletal: positive: Normal Inspection. negative: Decreased Range of Motion, Vertebral Tenderness Extremity: positive: Normal Capillary Refill, Normal Inspection, Normal Range of Motion. negative: Tender, Cyanosis Integumentary: positive: Normal Color, Dry, Warm. 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 States that these symptoms feel the same as her prior bronchitis. Has been on two antibiotics for presumed bronchitis in the past couple of weeks. On exam she is tachypneic to 30, VS otherwise wnl. Pausing mid-sentence to breath, mild wheezing. DDX IBNLT bronchitis, PNA, asthma or CHF or COPD exacerbation, DVT. Unlikely CHF/COPD/DVT. Pt does not hold prior dx of CHF or COPD and states these sxs are very familiar to her. DVT unlikely as Pt does not have unilateral LE sxs, is on Xarelto adherently. Will order CXR, CBCD, CMP, serum preg, abx, sxs control with Tylenol 3, Zofran. CXR suggestive of bronchitis. Pt's symptoms are improved after medication. E-Rx is sent for Azithromycin and Pt is appropriate for DC home. Return precautions are discussed. *DC/Admit/Observation/Transfer Diagnosis at time of Disposition: Shortness of breath, Cough - Discharge Dispostion Disposition: HOME Condition at time of disposition: Stable Admit: No - Prescriptions Prescriptions: Azithromycin [Zithromax Tri-Davi (3 DAYS) -] 500 mg PO DAILY #3 tablet - Referrals Referrals: Tyrone Rodriguez MD [Primary Care Provider] - - Patient Instructions Printed Discharge Instructions: DI for Acute Bronchitis Additional Instructions: You were seen in the ER for shortness of breath and cough. We did a chest x-ray and the results look like bronchitis. We also gave you medication to control your symptoms here in the ER. We are sending a prescription for Azithromycin to your pharmacy - please take this instead of the amoxicillin, and finish the pack of Azithromycin as prescribed whether or not you feel better. Follow up with your PCP or you can return to the ER for any new or worsening symptoms like fever or pain you cannot control with over the counter medications, severe shortness of breath, or other symptoms. - Post Discharge Activity
[2017-01-24 23:55] VITALS: BP 114/87; PULSE 92; TEMP 98.4; BMI 58.3
[2017-01-25] MEDS ORDERED: AZITHROMYCIN 250 MG TABLET ONE (00:12)
[2017-01-25] MEDS ORDERED: AZITHROMYCIN IVPB 250 ML IVPB ONE (00:33)
[2017-01-25 00:36] LABS: BASOPHIL 0.9 % (0-2.0); EOSINOPHIL 0.4 % (0-4.5); MCHC 30.9 g/dl (32.0-36.0); MEAN CELL VOLUME 59.1 fl (80-96); MEAN PLT VOLUME 8.9 fl (7.5-11.1); PLATELET COUNT 204 K/MM3 (134-434); RDW 24.7 % (11.6-15.6); WHITE BLOOD COUNT 8.4 K/mm3 (4.0-10.0)
[2017-01-25 00:37] LABS: MCH 18.3 pg (25.7-33.7)
[2017-01-25 01:01] LABS: ALBUMIN 3.1 g/dl (3.4-5.0); ANION GAP 9 (8-16); BILIRUBIN,TOTAL 0.2 mg/dL (0.2-1.0); CALCIUM 7.8 mg/dL (8.5-10.1); CO2 25 mmol/L (21-32); CREATININE 0.9 mg/dL (0.55-1.02); GLUCOSE,RANDOM 126 mg/dL (74-106); SGPT/ALT 30 U/L (12-78); TOT PROT 7.6 g/dl (6.4-8.2)
[2017-01-25 01:02] LABS: ALK PHOS 86 U/L (45-117)
[2017-01-25 01:04] LABS: SGOT/AST 38 U/L (15-37)
[2017-01-25] MEDS ORDERED: ONDANSETRON 4 MG TABLET PO ONE (02:42)
[2017-01-25] MEDS ORDERED: ACETAMINOPHEN WITH CODEINE 300MG/30MG TABLET PO ONE (02:42)
[2017-01-25] MEDS ORDERED: SODIUM CHLORIDE 0.9% 500 ML INFUS.BAG IV ONE (02:43)
[2017-01-25] MEDS ORDERED: ONDANSETRON *ODT* 4 MG TABLET ONE (02:51)
[2017-01-25] MEDS ORDERED: ACETAMINOPHEN WITH CODEINE 300MG/30MG TABLET ONE (02:51)
[2017-01-25 06:47] LABS: ANISOCYTOSIS 2+; HYPOCHROMIA 1+; MICROCYTOSIS 2+; POIKILOCYTOSIS 2+
[2017-01-25 06:48] LABS: OVALOCYTE 1+; TEAR DROP CELLS 1+
== END 2017-01-25 03:58 | disposition home or self-care (01) ==
LOC: JER 22:26
DX: J20.9 Acute bronchitis, unspecified (principal)
CPT/HCPCS: 36415; 71020-TC; 80053; 84703; 85025; 87040; 96365; 96368; 99283-25

== ENCOUNTER 2017-02-09 21:58 | Emergency (ER) | payer OTHER ==
[2017-02-09 22:15] VITALS: BP 122/68; PULSE 89; TEMP 97.9; BMI 56.7
--- NOTE | 2017-02-09 22:18 | PDOC ---
History of Present Illness - General Chief Complaint: Pain, Acute Stated Complaint: SWELLING TO BOTH LEGS Time Seen by Provider: 02/09/17 22:04 - History of Present Illness Initial Comments: This 41-year-old woman with multiple medical problems including type II DM, morbid obesity, breast cancer, fibromyalgia, hypertension, asthma and multiple episodes of DVT (though no apparent history of inherited hypercoagulable state) presents with 4 day history of lower leg edema and generalized mild pain. Patient states that the symptoms are similar to those that she experienced when she had bilateral lower extremity DVT several years ago. She is currently taking warfarin without change in dosage or missed dosages. During the last few days, she noted mild erythema in the anterior portion of her lower legs bilaterally. There are superficial lacerations in the anterior portion of her lower legs that the patient states she caused when her legs were pruritic and she scratched herself. She denies that these are animal scratches. She denies fever/chills. Past History - Past Medical History Allergies/Adverse Reactions: Allergies Allergy/AdvReac Type Severity Reaction Status Date / Time No Known Drug Allergies Allergy Verified 02/09/17 22:00 Home Medications: Ambulatory Orders Albuterol Sulfate Inhaler - [Ventolin Hfa Inhaler -] 2 inh PO Q4H 01/24/17 Aripiprazole [Abilify -] 2 mg PO DAILY 01/24/17 Bupropion HCl [Wellbutrin Sr] 150 mg PO TID 01/24/17 Butalbital/Acetaminophen [Butalbital-Acetaminophn 50-300] 1 each PO TID Fluticasone/Salmeterol [Advair Hfa 230-21 Mcg Inhaler] 230 inh IH BID 01/24/17 Gabapentin 300 mg PO TID 01/24/17 Hydroxyzine Pamoate 25 mg PO DAILY 01/24/17 Iron Bis-Gly/FA/C/B12/Ca/Succ [Iron 21/7 Tablet] 1 each PO DAILY 01/24/17 Metformin HCl 500 mg PO BID 01/24/17 Omeprazole 20 mg PO DAILY 01/24/17 Pramipexole Dihydrochloride [Mirapex -] 0.25 mg PO BID 01/24/17 Tamoxifen Citrate 10 mg PO BID 01/24/17 Valsartan/Hydrochlorothiazide [Valsartan-Hctz 320-25 mg Tab] 1 each PO DAILY 01/30 Vitamin B Complex 1 each PO DAILY 01/24/17 Warfarin Sodium 10 mg PO TID 01/24/17 Azithromycin [Zithromax Tri-Davi (3 DAYS) -] 500 mg PO DAILY #3 tablet 01/25/17 Azithromycin [Zithromax 250mg Tablets -] 250 mg PO DAILY #4 tablet 02/10/17 Anemia: Yes (Iron deficiency) Asthma: Yes Cancer: Yes (breast LEFT) Cardiac Disorders: (DVTs) CVA: No COPD: No CHF: No DVT: Yes Dementia: No Diabetes: Yes GI Disorders: Yes (hiatal hernia, GERD) Disorders: Yes (microscopic hematuria) HTN: Yes Hypercholesterolemia: No Liver Disease: Yes (fatty liver) Psychiatric Problems: Yes (Depression, anxiety) Seizures: No Thyroid Disease: No - Surgical History Abdominal Surgery: No Appendectomy: No Cardiac Surgery: No Cholecystectomy: No Lung Surgery: No Neurologic Surgery: No Orthopedic Surgery: No - Reproductive History Cervical CA: No Dysfunctional Uterine Bleeding: No Ectopic : No Endometrial CA: No Polycystic Ovaries: No Tubal Ligation: No - Immunization History Immunization Up to Date: Yes - Suicide/Smoking/Psychosocial Hx Smoking Status: Yes Smoking History: Current some day smoker Have you smoked in the past 12 months: Yes Number of Cigarettes Smoked Daily: 0 If you are a former smoker, when did you quit?: 21 YRS Cigars Per Day: 0 Information on smoking cessation initiated: No Hx Alcohol Use: No Drug/Substance Use Hx: No Substance Use Type: None Hx Substance Use Treatment: Yes (6 YEARS AGO) Review of Systems - Review of Systems Able to Perform ROS?: Yes Comments:: 12 point review of systems is negative except for what is noted in the history of present illness *Physical Exam - Vital Signs Last Vital Signs Temp Pulse Resp BP Pulse Ox 97.9 F 89 22 122/68 97 02/09/17 22:02 02/09/17 22:02 02/09/17 22:02 02/09/17 22:02 02/09/17 22:02 - Physical Exam Comments: GENERAL: Morbidly obese adult female, alert and oriented 3, in no acute distress HEAD: Normal with no signs of trauma. EYES: PERRLA, EOMI, sclera anicteric, conjunctiva clear. ENT: Ears normal, nares patent, oropharynx clear without exudates. Dry mucous membranes. NECK: Normal range of motion, supple without lymphadenopathy, JVD, or masses. LUNGS: Breath sounds equal, clear to auscultation bilaterally. No wheezes, and no crackles. HEART:Regular rate and rhythm, normal S1 and S2 without murmur, rub or gallop. ABDOMEN:.normal bowel sounds No guarding,tenderness or rebound.No masses No distention. EXTREMITIES: 2+ nonpitting edema to the knees bilaterally with faint erythema and very mild increase in temperature of the anterior distal 1/2,bilaterally Scattered , linear, superficial and nonbleeding lacerations of the anterior lower legs bilaterally Mild tenderness, no fluctuance, no lymphangitic streaking No palpable cords; no popliteal or posterior masses Remainder of the extremity exam is normal. NEUROLOGICAL: Cranial nerves II through XII grossly intact. Normal speech. No focal neurological deficits. MUSCULOSKELETAL: Back non-tender to palpation, no CVA tenderness SKIN: Warm, Dry, normal turgor, no rashes or lesions noted. Progress Note - Progress Note Progress Note: This 41-year-old woman with multiple medical problems and history of venous thromboembolic disease in the past, presents with a four-day history of discomfort and edema of her legs below the knee. Exam as noted: The area below the knees bilaterally is edematous but also has mild erythema and very mild increase in temperature to touch. Overlying the area are superficial lacerations secondary to patient experiencing pruritus and scratching the area. Bilateral Doppler duplex venous studies performed to evaluate for acute DVT. Studies are negative for DVT. Since patient has risk factors for cellulitis in her chronically edematous legs , the increased edema and discomfort, accompanied by mild erythema and very mild increase in temperature of the area consistent with early cellulitis. Patient will be started on antibiotic therapy for her mild bilateral lower extremity cellulitis. Patient recently been on multiple antibiotic courses for her bronchitis (this has occurred in the last month.) Azithromycin was well tolerated according to the patient. Patient had been prescribed this approximately 2 weeks ago. She will be started on azithromycin with first dose of 500 mg given here and in the emergency room, followed by 250 mg a day for 4 days. Patient should return to the ER immediately if she has worsening pain/redness/ fever or sees any lymphangitic streaking. She should plan on seeing her PMD, Dr. Rodriguez within the next 2-3 days *DC/Admit/Observation/Transfer Diagnosis at time of Disposition: Bilateral lower leg cellulitis - Discharge Dispostion Disposition: HOME Condition at time of disposition: Stable - Prescriptions Prescriptions: Azithromycin [Zithromax 250mg Tablets -] 250 mg PO DAILY #4 tablet - Referrals Referrals: Tyrone Rodriguez MD [Primary Care Provider] - 3 days - Patient Instructions Printed Discharge Instructions: DI for Cellulitis -- Adult Additional Instructions: Azithromycin 250 mg daily for the next 4 days Elevate legs as much as possible No work until evaluated by Dr. Rodriguez Follow-up with Dr. Rodriguez within the next 2-3 days Return to ER if you have worsening swelling/redness/pain or develop fever - Post Discharge Activity Forms/Work/School Notes: Back to Work
[2017-02-10] MEDS ORDERED: AZITHROMYCIN 250 MG TABLET PO ONE (00:39)
[2017-02-10] MEDS ORDERED: AZITHROMYCIN 250 MG TABLET ONE (00:40)
== END 2017-02-10 00:48 | disposition home or self-care (01) ==
LOC: FER 21:58
DX: L03.116 Cellulitis of left lower limb (principal); L03.115 Cellulitis of right lower limb; Z85.3 Personal history of malignant neoplasm of breast; E66.01 Morbid (severe) obesity due to excess calories; Z68.43 Body mass index [BMI] 50.0-59.9, adult; E11.9 Type 2 diabetes mellitus without complications; I10 Essential (primary) hypertension; J45.909 Unspecified asthma, uncomplicated; Z86.718 Personal history of other venous thrombosis and embolism; Z87.891 Personal history of nicotine dependence
CPT/HCPCS: 93970-TC; 99281-25

== ENCOUNTER 2017-08-25 13:09 | Observation (INO) | payer OTHER ==
--- NOTE | 2017-08-25 13:56 | PDOC ---
History of Present Illness - General Chief Complaint: Vaginal Bleeding Stated Complaint: VAGINAL BLEEDING, WEAKNESS Time Seen by Provider: 08/25/17 13:55 - History of Present Illness Initial Comments: 08/25/17 14:39 The patient is a 42 year old female with a history of HTN, HLD, DM, Iron Deficiency Anemia, DVT on Xeralto, Breast CA who presents for evaluation of vaginal bleeding. The patient reports a 4 week history of consistent heavy vaginal bleeding. She notes that her periods have been irregular since finishing her chemotherapy, but notes she has not had vaginal bleeding lasting this long in the past. She noted worsening lightheadedness, near syncopal episodes, and SOB over the past few days prompting her presentation to the ED for further evaluation. She notes that she stopped taking her xeralto 2 weeks into the vaginal bleeding. She otherwise denies fevers, chills, chest pain, nausea, vomiting, abdominal pain, or changes with urination or bowel movements. Past History - Past Medical History Allergies/Adverse Reactions: Allergies Allergy/AdvReac Type Severity Reaction Status Date / Time No Known Drug Allergies Allergy Verified 08/25/17 13:21 Home Medications: Ambulatory Orders Albuterol Sulfate Inhaler - [Ventolin Hfa Inhaler -] 2 inh PO Q4H 01/24/17 Bupropion HCl [Wellbutrin Sr] 3 tab PO TID 01/24/17 Butalbital/Acetaminophen [Butalbital-Acetaminophn 50-300] 1 each PO TID PRN 01/30 Fluticasone/Salmeterol [Advair Hfa 230-21 Mcg Inhaler] 230 inh IH BID 01/24/17 Gabapentin 400 mg PO TID 01/24/17 Pramipexole Dihydrochloride [Mirapex -] 0.25 mg PO TID 01/24/17 Tamoxifen Citrate 10 mg PO BID 01/24/17 Valsartan/Hydrochlorothiazide [Valsartan-Hctz 320-25 mg Tab] 1 each PO DAILY 01/30 metFORMIN HCL [Metformin HCl] 500 mg PO BID 01/24/17 Rivaroxaban [Xarelto -] 20 mg PO DAILY 08/26/17 Anemia: Yes (Iron deficiency) Asthma: Yes Cancer: Yes (breast LEFT) Cardiac Disorders: (DVTs) CVA: No COPD: No CHF: No DVT: Yes Dementia: No Diabetes: Yes GI Disorders: Yes (hiatal hernia, GERD) Disorders: Yes (microscopic hematuria) HTN: Yes Hypercholesterolemia: No Liver Disease: Yes (fatty liver) Psychiatric Problems: Yes (Depression, anxiety) Seizures: No Thyroid Disease: No - Surgical History Abdominal Surgery: No Appendectomy: No Cardiac Surgery: No Cholecystectomy: No Lung Surgery: No Neurologic Surgery: No Orthopedic Surgery: No - Reproductive History Cervical CA: No Dysfunctional Uterine Bleeding: No Ectopic : No Endometrial CA: No Polycystic Ovaries: No Tubal Ligation: No - Immunization History Immunization Up to Date: Yes - Suicide/Smoking/Psychosocial Hx Smoking Status: Yes Smoking History: Former smoker Have you smoked in the past 12 months: Yes Number of Cigarettes Smoked Daily: 0 If you are a former smoker, when did you quit?: 21 YRS Cigars Per Day: 0 Information on smoking cessation initiated: No Hx Alcohol Use: No Drug/Substance Use Hx: No Substance Use Type: None Hx Substance Use Treatment: Yes (6 YEARS AGO) Review of Systems - Review of Systems Comments:: 08/25/17 14:45 Constitutional: No fevers, chills, fatigue, malaise HEENT: No Rhinorrhea, nasal congestion, visual changes Cardiovascular: Near-Syncope, Lightheadedness. No chest pain, palpitations, Respiratory: SOB. No Cough, Hemoptysis, Gastrointestinal: No Abdominal pain, Nausea, Vomiting, Constipation, Diarrhea, Melena Genitourinary: Vaginal Bleeding. No Dysuria, Frequency, Urgency, Hesitancy, Hematuria, Flank pain Musculoskeletal: No Myalgia, arthralgia Skin: No rashes, itching, bruising, pallor Neurologic: No Headache, Dizziness, Numbness, Weakness, or Tingling Psychiatric: No Hallucinations. No SI or HI *Physical Exam - Vital Signs Last Vital Signs Temp Pulse Resp BP Pulse Ox 98.3 F 97 H 18 149/97 95 08/25/17 13:22 08/25/17 13:22 08/25/17 13:22 08/25/17 13:22 08/25/17 13:22 - Physical Exam Comments: 08/25/17 14:46 General Appearance: Nourished. In Mild Apparent Distress HEENT: EOMI, CHANDA. No Pharyngeal Erythema, Tonsillar Exudate, Tonsillar Erythema Neck: No Cervical Lymphadenopathy Respiratory/Chest: Lungs Clear, Normal Breath Sounds. No Crackles, Rales, Rhonchi, Wheezing Cardiovascular: Regular Rhythm, Regular Rate. No Murmur, Gallops, Rubs Gastrointestinal/Abdominal: Normal Bowel Sounds, Soft. No Guarding, Rebound, Tenderness Pelvic Exam: Normal External Exam. Moderate amount of blood in the vaginal vault with active vaginal bleeding. Cervical Os is closed. No CMT or Adenexal Tenderness. Musculoskeletal: No CVA Tenderness Extremity: Normal Capillary Refill Integumentary: Pallor noted on exam. Normal Color, Dry, Warm Neurologic: Fully Oriented, Alert, Normal Mood/Affect, Normal Response, Heart Score/ECG Review #1 ECG reviewed & interpreted by me at: 14:47 General ECG Interpretation: Sinus Rhythm, Normal Rate, Normal Intervals, No acute ischemic changes ED Treatment Course - LABORATORY CBC & Chemistry Diagram: 08/27/17 07:25 08/26/17 06:15 Medical Decision Making - Medical Decision Making 08/25/17 14:47 The patient is a 42 year old female with a history of HTN, HLD, DM, Iron Deficiency Anemia, DVT on Xeralto, Breast CA who presents for evaluation of vaginal bleeding. Differential includes but is not limited to: Anemia, Uterine fibroids, Infectious, Metabolic derangement. Given the patient's significant vaginal bleeding and pallor, we are concerned for symptomatic anemia. We will obtain a cbc, cmp, coags, type and screen, ua, urine preg, tsh and transvaginal US to evaluate further for possible etiologies. We will treat in the meantime with iv fluids and continue to monitor and reassess. 08/25/17 16:01 CBC demonstrates a hgb of 7.2. CMP, coags, ua, urine preg are unremarkable. Trans vaginal US is unremarkable as read by our radiologist. The patient is likely symptomatic from anemia and will require transfusion and admission for further work up. We discussed the case with the admitting team who accepted the patient for admission. *DC/Admit/Observation/Transfer Diagnosis at time of Disposition: Vaginal bleeding Anemia Qualifiers: Anemia type: other cause Other causes of anemia: acute posthemorrhagic Qualified Code(s): D62 - Acute posthemorrhagic anemia - Discharge Dispostion Condition at time of disposition: Stable Decision to Admit order: Yes - Referrals - Patient Instructions - Post Discharge Activity
[2017-08-25] MEDS ORDERED: SODIUM CHLORIDE 1,000 ML IV STA (14:05)
[2017-08-25 15:15] LABS: BASO % 0.9 % (0-2.0); EOS % 2.2 % (0-4.5); HEMATOCRIT 23.1 % (32.4-45.2); HEMOGLOBIN 7.2 GM/dL (10.7-15.3); LYMPH % 13.5 % (8-40); MCHC 31.1 g/dl (32.0-36.0); MEAN CELL VOLUME 62.8 fl (80-96); MEAN PLT VOLUME 9.2 fl (7.5-11.1); MONO % 4.9 % (3.8-10.2); NEUT % 78.5 % (42.8-82.8); PLATELET COUNT 202 K/MM3 (134-434); RBC 3.69 M/mm3 (3.60-5.2); RDW 21.7 % (11.6-15.6); WHITE BLOOD COUNT 11.5 K/mm3 (4.0-10.0)
[2017-08-25 15:21] LABS: MCH 19.5 pg (25.7-33.7)
[2017-08-25 15:40] LABS: ALBUMIN 2.9 g/dl (3.4-5.0); ANION GAP 9 (8-16); BLOOD UREA NITROGEN 10 mg/dL (7-18); CALCIUM 8.1 mg/dL (8.5-10.1); CHLORIDE 105 mmol/L (98-107); CO2 25 mmol/L (21-32); GLUCOSE,RANDOM 95 mg/dL (74-106); POTASSIUM 3.9 mmol/L (3.5-5.1); SODIUM 139 mmol/L (136-145)
--- NOTE | 2017-08-25 15:42 | PDOC ---
Attending Attestation - Resident Resident Name: Getachew Gamboa - ED Attending Attestation I have performed the following: I have examined & evaluated the patient, The case was reviewed & discussed with the resident, I agree w/resident's findings & plan - HPI HPI: 08/25/17 15:34 42y/o F h/o breast ca s/p chemo 2013, DVT on xarelto irregular menses since then with intermittent heavy bleeding presents now with heavy vaginal bleeding for 4 weeks, stopped xarelto after 2nd week, and comes to ED with light- headedness and fatigue. no cp/sob but near syncope. Has required transfusions in the past. - Physicial Exam PE: 08/25/17 15:42 blood pressure normal, mild tachycardia, afebrile Pale, no jaundice Abdomen is soft/nontender/nondistended Pelvic per resident with blood in vault and active bleeding from closed os - Medical Decision Making 08/25/17 15:42 42-year-old female with worsening symptomatic anemia from heavy vaginal bleeding , hemodynamically stable. Hemoglobin 7.2, baseline 9-9.5. Transfuse PRBC Admit
[2017-08-25 15:43] LABS: ALK PHOS 85 U/L (45-117); BILIRUBIN,TOTAL 0.3 mg/dL (0.2-1.0); CREATININE 0.6 mg/dL (0.55-1.02); SGOT/AST 15 U/L (15-37); SGPT/ALT 19 U/L (12-78)
[2017-08-25 15:57] LABS: N-TERMINAL BNP 106.64 pg/ml (5-125)
[2017-08-25] MEDS ORDERED: ONDANSETRON 4 MG/2 ML VIAL IVPUSH PRN (16:53)
[2017-08-25] MEDS ORDERED: ACETAMINOPHEN 325 MG TABLET (FP) PO PRN (16:53)
[2017-08-25] MEDS ORDERED: ALBUTEROL SO4 18 GM HFA INHALER IH PRN (17:00)
--- NOTE | 2017-08-25 17:03 | HP ---
Admitting History and Physical - Primary Care Physician PCP: Tyrone Rodriguez - Admission Chief Complaint: I feel weak History of Present Illness: Ms Fierro is a pleasant 42 year old female who comes in with vaginal bleeding x1 month and acute onset weakness, pre-syncope, and shortness of breath. She says she has a history of heavy menstrual cycles that last longer than normal, however this time it was the heaviest and longest. It began about 1 month ago and aside from a couple of days without bleeding, she has been bleeding continuously. She is on xarelto for DVTs and discontinued this 2 weeks prior per instructions secondary to continuous bleeding. Today she noted that she was very lightheaded when walking and also questionable pre-syncope/syncope. She says she felt like she would nod off but would come to right away and is unsure if she lost consciousness. This happened while sitting and she did not fall. She says she is chronically short of breath and is unsure if it is worse but she thinks so. She had an episode of nausea and vomiting last night, this is resolved. She has chronic lower extremity swelling and does not know if it worse. She denies fevers, chills, chest pain, abdominal pain, diarrhea, constipation, or difficulty or pain on urination. She currently says she feels very weak and fatigued. 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 On a/c with coumadin since that time) Pulmonary: Yes: Asthma, Pneumonia Gastrointestinal: Yes: GERD, Hiatal Hernia Hepatobiliary: Yes: Other (Fatty Liver) ...LMP: 09/11/15 Heme/Onc: Yes: Anemia Psych: Yes: Anxiety, Depression Musculoskeletal: Yes: Chronic low back pain, Other (states chronic myalgias and dx of fibromyalgia) Rheumatology: Yes: Fibromyalgia Endocrine: Yes: Diabetes Mellitus - Past Surgical History Past Surgical History: Yes: Breast Biopsy, - Smoking History Smoking history: Former smoker Have you smoked in the past 12 months: Yes Aproximately how many cigarettes per day: 0 If you are a former smoker, when did you quit?: 21 YRS - Alcohol/Substance Use Hx Alcohol Use: No History of Substance Use: reports: Cocaine Date of Last Use: 03/16/05 - Social History ADL: Independent Occupation: currently not working History of Recent Travel: No Home Medications - Allergies Allergies/Adverse Reactions: Allergies Allergy/AdvReac Type Severity Reaction Status Date / Time No Known Drug Allergies Allergy Verified 08/25/17 13:21 - Home Medications Home Medications: Ambulatory Orders Albuterol Sulfate Inhaler - [Ventolin Hfa Inhaler -] 2 inh PO Q4H 01/24/17 Aripiprazole [Abilify -] 2 mg PO DAILY 01/24/17 Bupropion HCl [Wellbutrin Sr] 150 mg PO TID 01/24/17 Butalbital/Acetaminophen [Butalbital-Acetaminophn 50-300] 1 each PO TID Fluticasone/Salmeterol [Advair Hfa 230-21 Mcg Inhaler] 230 inh IH BID 01/24/17 Gabapentin 300 mg PO TID 01/24/17 Hydroxyzine Pamoate 25 mg PO DAILY 01/24/17 Iron Bis-Gly/FA/C/B12/Ca/Succ [Iron 21/7 Tablet] 1 each PO DAILY 01/24/17 Omeprazole 20 mg PO DAILY 01/24/17 Pramipexole Dihydrochloride [Mirapex -] 0.25 mg PO BID 01/24/17 Tamoxifen Citrate 10 mg PO BID 01/24/17 Valsartan/Hydrochlorothiazide [Valsartan-Hctz 320-25 mg Tab] 1 each PO DAILY 01/30 Vitamin B Complex 1 each PO DAILY 01/24/17 Warfarin Sodium 10 mg PO TID 01/24/17 metFORMIN HCL [Metformin HCl] 500 mg PO BID 01/24/17 Azithromycin [Zithromax Tri-Davi (3 DAYS) -] 500 mg PO DAILY #3 tablet 01/25/17 Azithromycin [Zithromax 250mg Tablets -] 250 mg PO DAILY #4 tablet 02/10/17 Family Disease History - Family Disease History Family Disease History: CA: Grandparent (breast), Other: Sister (anemia) Review of Systems Findings/Remarks: Full review of systems obtained, as per HPI and otherwise negative Physical Examination Vital Signs: Vital Signs Temperature 36.8 C 08/25/17 13:22 Pulse Rate 97 H 08/25/17 13:22 Respiratory Rate 18 08/25/17 13:22 Blood Pressure 149/97 08/25/17 13:22 O2 Sat by Pulse Oximetry (%) 95 08/25/17 13:22 Constitutional: Yes: No Distress, Calm, Obese, Pallor Eyes: Yes: Conjunctiva Clear, EOM Intact, PERRL HENT: Yes: Atraumatic, Normocephalic Cardiovascular: Yes: Tachycardia. No: Pulse Irregular, Gallop, Murmur, Rub Respiratory: Yes: Regular, CTA Bilaterally. No: Rales, Rhonchi, Wheezes Gastrointestinal: Yes: Normal Bowel Sounds, Soft. No: Distention, Tenderness Musculoskeletal: Yes: WNL Edema: Yes Edema: LLE: 2+, RLE: 2+ Labs: CBC, BMP 08/25/17 14:50 08/25/17 14:50 Imaging - Results Ultrasound: Pending Problem List - Problems (1) Anemia Assessment/Plan: -patient with history of iron deficiency anemia, however now with ABLA -admit to the hospital -transfuse 2 units pRBCs -monitor Code(s): D64.9 - ANEMIA, UNSPECIFIED Qualifiers: Anemia type: other cause Other causes of anemia: acute posthemorrhagic Qualified Code(s): D62 - Acute posthemorrhagic anemia (2) Vaginal bleeding Assessment/Plan: -patient with one month history of vaginal bleeding -transvaginal ultrasound performed, awaiting read -gynecology consult -hold all anticoagulation currently Code(s): N93.9 - ABNORMAL UTERINE AND VAGINAL BLEEDING, UNSPECIFIED (3) Asthma Assessment/Plan: -continue home regimen -expect improvement with transfusion Code(s): J45.909 - UNSPECIFIED ASTHMA, UNCOMPLICATED Qualifiers: Asthma severity: mild Asthma persistence: intermittent Asthma complication type: uncomplicated Qualified Code(s): J45.20 - Mild intermittent asthma, uncomplicated (4) Breast cancer, left Assessment/Plan: -continue tamoxifen Code(s): C50.912 - MALIGNANT NEOPLASM OF UNSPECIFIED SITE OF LEFT FEMALE BREAST Qualifiers: Breast location: upper outer quadrant of breast Qualified Code(s): C50.412 - Malignant neoplasm of upper-outer quadrant of left female breast (5) History of DVT (deep vein thrombosis) Assessment/Plan: -patient off xarelto secondary to bleeding -however must consider, even with vaginal bleeding, possibility of PE -will obtain CT chest with PE protocol -hold metformin x48 secondary to contrast Code(s): Z86.718 - PERSONAL HISTORY OF OTHER VENOUS THROMBOSIS AND EMBOLISM (6) Hypertension Assessment/Plan: -continue home regimen Code(s): I10 - ESSENTIAL (PRIMARY) HYPERTENSION (7) Morbidly obese Assessment/Plan: -outpatient weight loss program Code(s): E66.01 - MORBID (SEVERE) OBESITY DUE TO EXCESS CALORIES (8) Pre-syncope Assessment/Plan: -suspect secondary to anemia -however will also evaluate for PE -obtain orthostatics and ECHO -transfuse Code(s): R55 - SYNCOPE AND COLLAPSE
[2017-08-25 18:01] LABS: ANISOCYTOSIS 2+; OVALOCYTE 1+; PLATELET ESTIMATE ADEQUATE
[2017-08-25] MEDS ORDERED: ONDANSETRON 4 MG/2 ML VIAL ONE (18:42)
[2017-08-25 23:52] VITALS: BMI 57.9
[2017-08-26] MEDS: buPROPion HCL 75 MG TABLET PO SCH ×4 (00:03→22:06)
[2017-08-26] MEDS: PRAMIPEXOLE DIHYDROCHLORIDE 0.25 MG TABLET PO SCH ×3 (00:04→22:06)
[2017-08-26] MEDS: GABAPENTIN 300 MG CAPSULE (FP) PO SCH ×4 (00:04→22:06)
[2017-08-26] MEDS: INSULIN SLIDING SCALE (NOVOLOG) 1 VIAL SQ SCH ×5 (00:04→22:05)
[2017-08-26] MEDS: BUDESONIDE/FORMETEROL FUMARATE 80/4.5 mcg INHALER IH SCH ×3 (00:04→22:06)
[2017-08-26] MEDS: TAMOXIFEN CITRATE 10 MG TABLET PO SCH ×3 (00:04→22:06)
[2017-08-26 02:10] LABS: URINE APPEARANCE CLEAR; URINE BILIRUBIN NEGATIVE (<2.0 mg/dL); URINE BLOOD 3+ (NEGATIVE); URINE COLOR LTYELLOW; URINE GLUCOSE (UA) NEGATIVE (NEGATIVE); URINE KETONE NEGATIVE (NEGATIVE); URINE LEUK ESTERASE NEGATIVE (NEGATIVE); URINE NITRITE NEGATIVE (NEGATIVE); URINE PROTEIN NEGATIVE (NEGATIVE); URINE UROBILINOGEN NEGATIVE mg/dL (0.2-1.0)
[2017-08-26 02:19] LABS: HCG,QUALITATIVE URINE NEGATIVE
[2017-08-26 08:11] LABS: BASO % 0.7 % (0-2.0); EOS % 4.8 % (0-4.5); HEMATOCRIT 28.3 % (32.4-45.2); HEMOGLOBIN 9.2 GM/dL (10.7-15.3); LYMPH % 16.2 % (8-40); MCH 21.7 pg (25.7-33.7); MCHC 32.4 g/dl (32.0-36.0); MEAN CELL VOLUME 66.8 fl (80-96); MEAN PLT VOLUME 10.2 fl (7.5-11.1); MONO % 5.6 % (3.8-10.2); NEUT % 72.7 % (42.8-82.8); PLATELET COUNT 216 K/MM3 (134-434); RBC 4.24 M/mm3 (3.60-5.2); RDW 24.9 % (11.6-15.6); WHITE BLOOD COUNT 8.8 K/mm3 (4.0-10.0)
[2017-08-26 08:21] LABS: ANION GAP 9 (8-16); BLOOD UREA NITROGEN 8 mg/dL (7-18); CALCIUM 8.2 mg/dL (8.5-10.1); CHLORIDE 104 mmol/L (98-107); CO2 27 mmol/L (21-32); GLUCOSE,RANDOM 95 mg/dL (74-106); POTASSIUM 4.3 mmol/L (3.5-5.1); SODIUM 140 mmol/L (136-145)
[2017-08-26 08:24] LABS: CREATININE 0.6 mg/dL (0.55-1.02); PHOSPHOROUS 4.3 mg/dL (2.5-4.9)
[2017-08-26] MEDS ORDERED: PT OWN MED DRAWER 7, Y5N ONE (09:44)
--- NOTE | 2017-08-26 09:44 | EKG ---
Test Reason : Blood Pressure : / mmHG Vent. Rate : 088 BPM Atrial Rate : 088 BPM P-R Int : 178 ms QRS Dur : 098 ms QT Int : 384 ms P-R-T Axes : 023 006 068 degrees QTc Int : 464 ms NORMAL SINUS RHYTHM NORMAL ECG WHEN COMPARED WITH ECG OF 19-MAR-2016 12:44, NO SIGNIFICANT CHANGE WAS FOUND Confirmed by ANDREA OSUNA MD ([id number]) on 08/26/2017 9:43:51 AM Referred By: Confirmed By:ANDREA OSUNA MD
[2017-08-26] MEDS ORDERED: [UNRECOGNIZED DRUG - OTHER] PO SCH (10:00)
[2017-08-26] MEDS ORDERED: PATIENT'S OWN MEDICATION (NON-FORMULARY) (Valsartan/Hydrochlorothiazide [Valsartan-Hctz 32 PO SCH (10:00)
[2017-08-26] MEDS: VALSARTAN 160 MG TABLET (UD) PO SCH (10:12)
[2017-08-26] MEDS: HYDROCHLOROTHIAZIDE 25 MG TABLET (FP) PO SCH (10:12)
[2017-08-26] MEDS: PANTOPRAZOLE 40 MG TABLET (FP) PO SCH (10:12)
[2017-08-26] MEDS: VITAMIN B COMPLEX W/C COMBO TABLET (FP) PO SCH (10:12)
--- NOTE | 2017-08-26 11:48 | PN ---
Progress Note, Physician Chief Complaint: Ms Fierro says she is feeling better. No cp, sob, n/v. - Current Medication List Current Medications: Active Medications Acetaminophen (Tylenol -) 650 mg PO Q4H PRN PRN Reason: FEVER Albuterol Sulfate (Ventolin Hfa Inhaler -) 2 puff IH Q4H PRN PRN Reason: SHORTNESS OF BREATH Aripiprazole (Abilify) 2 mg PO DAILY [facility] Budesonide/Formoterol Fumarate (Symbicort 80/4.5mcg -) 2 puff IH BID [facility] Last Admin: 08/26/17 00:04 Dose: Not Given Bupropion HCl (Wellbutrin -) 150 mg PO TID [facility] Last Admin: 08/26/17 06:02 Dose: 150 mg Gabapentin (Neurontin -) 300 mg PO TID [facility] Last Admin: 08/26/17 06:02 Dose: 300 mg Hydrochlorothiazide (Hctz -) 25 mg PO DAILY [facility] Last Admin: 08/26/17 10:12 Dose: 25 mg Hydroxyzine Pamoate (Vistaril -) 25 mg PO DAILY [facility] Insulin Aspart (Novolog Vial Sliding Scale -) 1 vial SQ ACHS [facility]; Protocol Last Admin: 08/26/17 11:33 Dose: Not Given Multivitamins (Total B With C -) 1 each PO DAILY [facility] Last Admin: 08/26/17 10:12 Dose: 1 each Ondansetron HCl (Zofran Injection) 4 mg IVPUSH Q6H PRN PRN Reason: NAUSEA Last Admin: 08/25/17 18:57 Dose: 4 mg Pantoprazole Sodium (Protonix -) 40 mg PO DAILY [facility] Last Admin: 08/26/17 10:12 Dose: 40 mg Pramipexole Dihydrochloride (Mirapex -) 0.25 mg PO BID [facility] Last Admin: 08/26/17 10:12 Dose: 0.25 mg Tamoxifen Citrate (Tamoxifen Citrate) 10 mg PO BID [facility] Last Admin: 08/26/17 10:12 Dose: 10 mg Valsartan (Diovan -) 320 mg PO DAILY [facility] Last Admin: 08/26/17 10:12 Dose: 320 mg - Objective Vital Signs: Vital Signs Temperature 36.8 C 08/26/17 06:00 Pulse Rate 86 08/26/17 06:00 Respiratory Rate 18 08/26/17 06:00 Blood Pressure 154/76 08/26/17 06:00 O2 Sat by Pulse Oximetry (%) 96 08/25/17 23:54 Constitutional: Yes: No Distress, Calm, Obese Cardiovascular: Yes: Regular Rate and Rhythm. No: Gallop, Murmur, Rub Respiratory: Yes: Regular, CTA Bilaterally. No: Rales, Rhonchi, Wheezes Gastrointestinal: Yes: Normal Bowel Sounds, Soft. No: Distention, Tenderness Extremities: Yes: WNL Edema: No Labs: CBC, BMP 08/26/17 06:15 08/26/17 06:15 Problem List - Problems (1) Anemia Code(s): D64.9 - ANEMIA, UNSPECIFIED Qualifiers: Anemia type: other cause Other causes of anemia: acute posthemorrhagic Qualified Code(s): D62 - Acute posthemorrhagic anemia (2) Vaginal bleeding Code(s): N93.9 - ABNORMAL UTERINE AND VAGINAL BLEEDING, UNSPECIFIED (3) Asthma Code(s): J45.909 - UNSPECIFIED ASTHMA, UNCOMPLICATED Qualifiers: Asthma severity: mild Asthma persistence: intermittent Asthma complication type: uncomplicated Qualified Code(s): J45.20 - Mild intermittent asthma, uncomplicated (4) Breast cancer, left Code(s): C50.912 - MALIGNANT NEOPLASM OF UNSPECIFIED SITE OF LEFT FEMALE BREAST Qualifiers: Breast location: upper outer quadrant of breast (5) History of DVT (deep vein thrombosis) Code(s): Z86.718 - PERSONAL HISTORY OF OTHER VENOUS THROMBOSIS AND EMBOLISM (6) Hypertension Code(s): I10 - ESSENTIAL (PRIMARY) HYPERTENSION (7) Morbidly obese Code(s): E66.01 - MORBID (SEVERE) OBESITY DUE TO EXCESS CALORIES (8) Pre-syncope Code(s): R55 - SYNCOPE AND COLLAPSE Assessment/Plan (1) Anemia Assessment/Plan: -s/p 2 units -recheck cbc in am to make sure is stable Code(s): D64.9 - ANEMIA, UNSPECIFIED Qualifiers: Anemia type: other cause Other causes of anemia: acute posthemorrhagic Qualified Code(s): D62 - Acute posthemorrhagic anemia (2) Vaginal bleeding Assessment/Plan: -gynecology consulted, awaiting recommendations Code(s): N93.9 - ABNORMAL UTERINE AND VAGINAL BLEEDING, UNSPECIFIED (3) Asthma Assessment/Plan: -continue home regimen -expect improvement with transfusion Code(s): J45.909 - UNSPECIFIED ASTHMA, UNCOMPLICATED Qualifiers: Asthma severity: mild Asthma persistence: intermittent Asthma complication type: uncomplicated Qualified Code(s): J45.20 - Mild intermittent asthma, uncomplicated (4) Breast cancer, left Assessment/Plan: -continue tamoxifen Code(s): C50.912 - MALIGNANT NEOPLASM OF UNSPECIFIED SITE OF LEFT FEMALE BREAST Qualifiers: Breast location: upper outer quadrant of breast Qualified Code(s): C50.412 - Malignant neoplasm of upper-outer quadrant of left female breast (5) History of DVT (deep vein thrombosis) Assessment/Plan: -continue to hold xarelto currently since still with bleeding per patient -no PE on CT scan Code(s): Z86.718 - PERSONAL HISTORY OF OTHER VENOUS THROMBOSIS AND EMBOLISM (6) Hypertension Assessment/Plan: -continue home regimen Code(s): I10 - ESSENTIAL (PRIMARY) HYPERTENSION (7) Morbidly obese Assessment/Plan: -outpatient weight loss program Code(s): E66.01 - MORBID (SEVERE) OBESITY DUE TO EXCESS CALORIES (8) Pre-syncope Assessment/Plan: -ECHO reviewed -currently resolved Code(s): R55 - SYNCOPE AND COLLAPSE
[2017-08-26] MEDS: hydrOXYzine PAMOATE 25 MG CAPSULE (FP) PO SCH (12:56)
[2017-08-26] MEDS: ARIPiprazole 2 MG TABLET PO SCH (12:56)
[2017-08-27 09:03] LABS: BASO % 0.9 % (0-2.0); EOS % 4.3 % (0-4.5); HEMATOCRIT 27.8 % (32.4-45.2); LYMPH % 13.9 % (8-40); MCH 21.5 pg (25.7-33.7); MCHC 32.2 g/dl (32.0-36.0); MEAN CELL VOLUME 66.8 fl (80-96); MEAN PLT VOLUME 9.3 fl (7.5-11.1); MONO % 5.8 % (3.8-10.2); NEUT % 75.1 % (42.8-82.8); PLATELET COUNT 179 K/MM3 (134-434); RBC 4.16 M/mm3 (3.60-5.2); RDW 25.2 % (11.6-15.6); WHITE BLOOD COUNT 9.2 K/mm3 (4.0-10.0)
[2017-08-27] MEDS ORDERED: PT OWN MED DRAWER 7, Y5N ONE (10:10)
[2017-08-27] MEDS: VALSARTAN 160 MG TABLET (UD) PO SCH (10:37)
[2017-08-27] MEDS: ARIPiprazole 2 MG TABLET PO SCH (10:37)
[2017-08-27] MEDS: HYDROCHLOROTHIAZIDE 25 MG TABLET (FP) PO SCH (10:37)
[2017-08-27] MEDS: PRAMIPEXOLE DIHYDROCHLORIDE 0.25 MG TABLET PO SCH (10:38)
[2017-08-27] MEDS: BUDESONIDE/FORMETEROL FUMARATE 80/4.5 mcg INHALER IH SCH (10:39)
[2017-08-27] MEDS: TAMOXIFEN CITRATE 10 MG TABLET PO SCH (10:39)
[2017-08-27] MEDS: PANTOPRAZOLE 40 MG TABLET (FP) PO SCH (10:39)
[2017-08-27] MEDS: hydrOXYzine PAMOATE 25 MG CAPSULE (FP) PO SCH (10:40)
[2017-08-27] MEDS: VITAMIN B COMPLEX W/C COMBO TABLET (FP) PO SCH (10:40)
[2017-08-27] MEDS: GABAPENTIN 300 MG CAPSULE (FP) PO SCH (15:01)
[2017-08-27] MEDS: buPROPion HCL 75 MG TABLET PO SCH (15:02)
[2017-08-27] MEDS: INSULIN SLIDING SCALE (NOVOLOG) 1 VIAL SQ SCH ×2 (17:58→17:59)
--- NOTE | 2017-08-27 18:19 | DS ---
Physical Examination Vital Signs: Vital Signs Temperature 36.8 C 08/27/17 14:07 Pulse Rate 92 H 08/27/17 14:07 Respiratory Rate 18 08/27/17 14:07 Blood Pressure 121/65 08/27/17 14:07 O2 Sat by Pulse Oximetry (%) 95 08/27/17 11:00 Labs: CBC, BMP 08/27/17 07:25 08/26/17 06:15 Discharge Summary Reason For Visit: ANEMIA,VAGINAL BLEEDING Current Active Problems Anemia (Acute) Pre-syncope (Acute) Vaginal bleeding (Acute) Condition: Good - Instructions Diet, Activity, Other Instructions: resume previous diet and activity Referrals: Tyrone Rodriguez MD [Primary Care Provider] - Disposition: HOME - Home Medications Comprehensive Discharge Medication List: Ambulatory Orders Albuterol Sulfate Inhaler - [Ventolin HFA Inhaler -] 2 inh PO Q4H 01/24/17 Bupropion HCl [Wellbutrin Sr] 3 tab PO TID 01/24/17 Butalbital/Acetaminophen [Butalbital-Acetaminophn 50-300] 1 each PO TID PRN 01/30 Fluticasone/Salmeterol [Advair Hfa 230-21 Mcg Inhaler] 230 inh IH BID 01/24/17 Gabapentin 400 mg PO TID 01/24/17 Pramipexole Dihydrochloride [Mirapex -] 0.25 mg PO TID 01/24/17 Tamoxifen Citrate 10 mg PO BID 01/24/17 Valsartan/Hydrochlorothiazide [Valsartan-Hctz 320-25 mg Tab] 1 each PO DAILY 01/30 metFORMIN HCL [Metformin HCl] 500 mg PO BID 01/24/17
[2017-08-27 19:04] VITALS: BP 130/84; PULSE 98; TEMP 98.6
--- NOTE | 2017-08-29 08:36 | EKG ---
Test Reason : Blood Pressure : / mmHG Vent. Rate : 078 BPM Atrial Rate : 078 BPM P-R Int : 186 ms QRS Dur : 102 ms QT Int : 390 ms P-R-T Axes : 039 005 079 degrees QTc Int : 444 ms NORMAL SINUS RHYTHM NORMAL ECG WHEN COMPARED WITH ECG OF 25-AUG-2017 14:38, NO SIGNIFICANT CHANGE WAS FOUND Confirmed by ANDREA OSUNA MD ([id number]) on 08/29/2017 8:35:53 AM Referred By: Confirmed By:ANDREA OSUNA MD
== END 2017-08-27 20:00 | disposition home or self-care (01) ==
LOC: JER 13:09 → INTOOBSV 16:23 → UNDOADMOB 16:23 → JERBED 16:23 → J7W 23:07 → JERBED 23:07 → J7W 08-26 11:47
PROVIDERS: ADMIT Internal Medicine; ATTEND Internal Medicine
PROC: 30233N1 Transfusion of Nonautologous Red Blood Cells into Peripheral Vein, Percutaneous Approach (ICD-10-PCS; principal; 2017-08-26)
PROC: 3E033GC Introduction of Other Therapeutic Substance into Peripheral Vein, Percutaneous Approach (ICD-10-PCS; 2017-08-26)
PROC: 3E0337Z Introduction of Electrolytic and Water Balance Substance into Peripheral Vein, Percutaneous Approach (ICD-10-PCS; 2017-08-26)
PROC: 3E0F7GC Introduction of Other Therapeutic Substance into Respiratory Tract, Via Natural or Artificial Opening (ICD-10-PCS; 2017-08-26)
DX: D62 Acute posthemorrhagic anemia (principal); N93.9 Abnormal uterine and vaginal bleeding, unspecified; C50.412 Malignant neoplasm of upper-outer quadrant of left female breast; I10 Essential (primary) hypertension; E78.5 Hyperlipidemia, unspecified; E11.9 Type 2 diabetes mellitus without complications; J45.909 Unspecified asthma, uncomplicated; K21.9 Gastro-esophageal reflux disease without esophagitis; K76.0 Fatty (change of) liver, not elsewhere classified; R55 Syncope and collapse; F41.9 Anxiety disorder, unspecified; F32.9 Major depressive disorder, single episode, unspecified; E66.01 Morbid (severe) obesity due to excess calories; Z68.43 Body mass index [BMI] 50.0-59.9, adult; Z87.891 Personal history of nicotine dependence; Z86.718 Personal history of other venous thrombosis and embolism; Z79.01 Long term (current) use of anticoagulants; Z79.84 Long term (current) use of oral hypoglycemic drugs
CPT/HCPCS: 36415; 36430; 71275-TC; 76830-TC; 80048; 80053; 81003; 81015; 82550; 82962; 83735; 83880; 84100; 84443; 84484; 84703; 85025; 85730; 86850; 86900; 86901; 86922; 93005; 93010; 93306-TC; 94640; 96361; 96374; 99284-25; G0378; J7030; P9038; P9058

== ENCOUNTER 2018-02-19 11:01 | Emergency (ER) | payer OTHER ==
[2018-02-19 11:12] VITALS: BMI 55.7
[2018-02-19] MEDS ORDERED: SODIUM CHLORIDE 1,000 ML IV STA (12:14)
--- NOTE | 2018-02-19 12:15 | PDOC ---
History of Present Illness - General Chief Complaint: Vaginal Bleeding Stated Complaint: VAGINAL BLEEDING, SOB Time Seen by Provider: 02/19/18 12:10 History Source: Patient Exam Limitations: No Limitations - History of Present Illness Travel History: No Initial Comments: 02/19/18 12:26 42 yr female history of breast cancer on tamoxifen presents with irregular vaginal bleeding , heavy bleeding for 2 weeks with clots. This is chronic for patient has plan to have hysterectomy . Pt denies abd pain, palpitations or SOB. 02/19/18 15:28 Quality: reports: mild Past History - Past Medical History Allergies/Adverse Reactions: Allergies Allergy/AdvReac Type Severity Reaction Status Date / Time No Known Drug Allergies Allergy Verified 02/19/18 11:05 Home Medications: Ambulatory Orders Albuterol Sulfate Inhaler - [Ventolin HFA Inhaler -] 2 inh PO Q4H 01/24/17 Bupropion HCl [Wellbutrin Sr] 3 tab PO TID 01/24/17 Fluticasone/Salmeterol [Advair Hfa 230-21 Mcg Inhaler] 230 inh IH BID 01/24/17 Gabapentin 400 mg PO TID 01/24/17 Pramipexole Dihydrochloride [Mirapex -] 0.25 mg PO TID 01/24/17 Tamoxifen Citrate 10 mg PO BID 01/24/17 Valsartan/Hydrochlorothiazide [Valsartan-Hctz 320-25 mg Tab] 1 each PO DAILY 01/30 metFORMIN HCL [Metformin HCl] 500 mg PO BID 01/24/17 Oxycodone HCl/Acetaminophen [Oxycodone-Acetaminophen 10-325] 1 each PO Q4H 10/27 Anemia: Yes (Iron deficiency) Asthma: Yes Cancer: Yes (breast LEFT) Cardiac Disorders: (DVTs) CVA: No COPD: No CHF: No DVT: Yes Dementia: No Diabetes: Yes GI Disorders: Yes (hiatal hernia, GERD) Disorders: Yes (microscopic hematuria) HTN: Yes Hypercholesterolemia: No Liver Disease: Yes (fatty liver) Psychiatric Problems: Yes (Depression, anxiety) Seizures: No Thyroid Disease: No - Surgical History Abdominal Surgery: No Appendectomy: No Cardiac Surgery: No Cholecystectomy: No Lung Surgery: No Neurologic Surgery: No Orthopedic Surgery: No - Reproductive History Cervical CA: No Dysfunctional Uterine Bleeding: No Ectopic : No Endometrial CA: No Polycystic Ovaries: No Tubal Ligation: No - Immunization History Immunization Up to Date: Yes - Suicide/Smoking/Psychosocial Hx Smoking Status: Yes Smoking History: Current every day smoker Have you smoked in the past 12 months: Yes Number of Cigarettes Smoked Daily: 5 If you are a former smoker, when did you quit?: 21 YRS Cigars Per Day: 0 Information on smoking cessation initiated: No Hx Alcohol Use: Yes Drug/Substance Use Hx: No Substance Use Type: None Hx Substance Use Treatment: Yes (6 YEARS AGO) *Physical Exam - Vital Signs Last Vital Signs Temp Pulse Resp BP Pulse Ox 97.9 F 101 H 18 141/69 99 02/19/18 11:05 02/19/18 11:05 02/19/18 11:05 02/19/18 11:05 02/19/18 11:05 - Physical Exam General Appearance: Yes: Nourished, Appropriately Dressed, Obese HEENT: positive: EOMI, CHANDA Respiratory/Chest: positive: Lungs Clear, Normal Breath Sounds Cardiovascular: positive: Regular Rhythm, Regular Rate Female Pelvic Exam: positive: vaginal bleeding Gastrointestinal/Abdominal: positive: Normal Bowel Sounds, Soft. negative: Tender Musculoskeletal: positive: Normal Inspection Extremity: positive: Normal Capillary Refill, Normal Inspection, Normal Range of Motion Integumentary: positive: Normal Color, Dry, Warm Neurologic: positive: Fully Oriented, Alert, Normal Mood/Affect, Normal Response , Motor Strength 5/5 Moderate Sedation - Procedure Monitoring Vital Signs: Procedure Monitoring Vital Signs Temperature 97.9 F 02/19/18 11:05 Pulse Rate 101 H 02/19/18 11:05 Respiratory Rate 18 02/19/18 11:05 Blood Pressure 141/69 02/19/18 11:05 O2 Sat by Pulse Oximetry (%) 99 02/19/18 11:05 ED Treatment Course - LABORATORY CBC & Chemistry Diagram: 02/19/18 12:30 02/19/18 12:35 Medical Decision Making - Medical Decision Making 02/19/18 15:24 cc: vaginal bleeding 2 weeks with clots no abd pain , mild cramping had some dizzyness yesterday will check labs, IVF, US pt feels better after IVF is asking to go home pt is ambulatory in the ER no dizzyness or shortness of breath pt understands to call her MACHINE GREASER today to make appointment for follow up copies of the labs and US were given. all questions asked and answered at discharge. 02/19/18 16:58 *DC/Admit/Observation/Transfer Diagnosis at time of Disposition: Vaginal bleeding - Discharge Dispostion Disposition: HOME Condition at time of disposition: Improved - Referrals Referrals: Tyrone Rodriguez MD [Primary Care Provider] - - Patient Instructions Additional Instructions: please follow with your rn icu for follow up rest at home drink pleanty of fluids, continue taking your iron supplements eat a diet with iron, dark green leafy vegetables please return to the ER for any worsening symptoms - Post Discharge Activity
[2018-02-19 12:58] LABS: EOS % 4.1 % (0-4.5); HEMATOCRIT 30.1 % (32.4-45.2); HEMOGLOBIN 9.1 GM/dL (10.7-15.3); LYMPH % 14.1 % (8-40); MCHC 30.2 g/dl (32.0-36.0); MEAN PLT VOLUME 9.5 fl (7.5-11.1); MONO % 3.4 % (3.8-10.2); NEUT % 77.4 % (42.8-82.8); PLATELET COUNT 203 K/MM3 (134-434); RDW 19.3 % (11.6-15.6); WHITE BLOOD COUNT 12.4 K/mm3 (4.0-10.0)
[2018-02-19 13:03] LABS: MCH 19.3 pg (25.7-33.7)
[2018-02-19 13:11] LABS: INR 1.1 (0.83-1.09)
[2018-02-19 13:48] LABS: ALBUMIN 3.1 g/dl (3.4-5.0); ALK PHOS 110 U/L (45-117); ANION GAP 6 MMOL/L (8-16); BILIRUBIN,TOTAL 0.2 mg/dL (0.2-1); BLOOD UREA NITROGEN 14 mg/dL (7-18); CALCIUM 8.2 mg/dL (8.5-10.1); CHLORIDE 105 mmol/L (98-107); CO2 28 mmol/L (21-32); CREATININE 0.8 mg/dL (0.55-1.3); GLUCOSE,RANDOM 134 mg/dL (74-106); POTASSIUM 3.8 mmol/L (3.5-5.1); SGOT/AST 18 U/L (15-37); SGPT/ALT 26 U/L (13-61); SODIUM 139 mmol/L (136-145); TOT PROT 7.5 g/dl (6.4-8.2)
[2018-02-19 15:18] VITALS: BP 132/78; PULSE 82; TEMP 98.2
[2018-02-19 16:03] LABS: URINE APPEARANCE CLOUDY; URINE BILIRUBIN NEGATIVE (<2.0 mg/dL); URINE COLOR YELLOW; URINE GLUCOSE (UA) NEGATIVE (NEGATIVE); URINE KETONE NEGATIVE (NEGATIVE); URINE LEUK ESTERASE TRACE (NEGATIVE); URINE NITRITE NEGATIVE (NEGATIVE); URINE PROTEIN 2+ (NEGATIVE); URINE UROBILINOGEN NEGATIVE mg/dL (0.2-1.0)
[2018-02-19 16:05] LABS: HCG,QUALITATIVE URINE Negative
[2018-02-19 16:11] LABS: EPI CELLS RARE /HPF (FEW); URINE BACTERIA RARE /hpf (NONE SEEN); URINE MUCUS RARE
== END 2018-02-19 16:24 | disposition home or self-care (01) ==
LOC: JER 11:01
PROC: 3E0337Z Introduction of Electrolytic and Water Balance Substance into Peripheral Vein, Percutaneous Approach (ICD-10-PCS; principal; 2018-02-19)
DX: N93.9 Abnormal uterine and vaginal bleeding, unspecified (principal); F17.210 Nicotine dependence, cigarettes, uncomplicated; K76.0 Fatty (change of) liver, not elsewhere classified; I10 Essential (primary) hypertension; Z85.3 Personal history of malignant neoplasm of breast
CPT/HCPCS: 36415; 76830-TC; 80053; 81003; 81015; 84703; 85025; 85610; 86850; 86870; 86900; 86901; 86902; 96360; 99282-25; J7030

== ENCOUNTER 2018-03-05 21:43 | Inpatient (IN) | payer OTHER ==
--- NOTE | 2018-03-05 22:03 | PDOC ---
Attending Attestation - HPI HPI: 03/06/18 00:06 The patient is a 42 year old female, with a significant PMH of anemia, asthma, left breast cancer, DVT, diabetes, hiatal hernia, GERD, microscopic hematuria, HTN, depression and anxiety, who was sent by OBGYN for further evaluation concerning low hemoglobin level. The patient states she has been bleeding for 5 week and OBGYN recommended a blood transfusion. The patient denies chest pain , shortness of breath, headache and dizziness. Denies fever, chills, nausea, vomit, diarrhea and constipation.Denies dysuria, frequency, and urgency. Allergies: NKDA Past surgical history: None reported Social history: Former smoker quit 21 years ago PCP: None reported Documentation prepared by Brooklynn Sharma, acting as certified medical aide for Ivette Mora MD. - Physicial Exam PE: 03/06/18 00:07 GENERAL: +Pale. +Fingertips pale. Afebrile. The patient is in no acute distress. HEAD: Normal with no signs of trauma. EYES: PERRLA, EOMI, sclera anicteric, conjunctiva clear. ENT: Ears normal, nares patent, oropharynx clear without exudates. Moist mucous membranes. NECK: Normal range of motion, supple without lymphadenopathy, JVD, or masses. LUNGS:+SOB. Breath sounds equal, clear to auscultation bilaterally. No wheezes, and no crackles. HEART:Regular rate and rhythm, normal S1 and S2 without murmur, rub or gallop. ABDOMEN: Soft, nontender, normoactive bowel sounds. No guarding, no rebound. No masses palpable. No flank pain EXTREMITIES: Normal range of motion, no edema. No clubbing or cyanosis. No erythema, or tenderness. NEUROLOGICAL: Cranial nerves II through XII grossly intact. Normal speech. No focal neurological deficits. MUSCULOSKELETAL: Back non-tender to palpation, no CVA tenderness SKIN: Warm, Dry, normal turgor, no rashes or lesions noted. <Brooklynn Sharma - Last Filed: 03/06/18 00:06> - Resident Resident Name: Eris Contreras - ED Attending Attestation I have performed the following: I have examined & evaluated the patient, The case was reviewed & discussed with the resident, I agree w/resident's findings & plan - Medical Decision Making 03/05/18 23:51 Pt's Hb is 5.3 today; we will transfuse 2 units PRBC and admit her. 03/06/18 00:16 Pt states that she has been SOB, but she came to the ER because she was told by her BATTER SCALER to come in for anemia. Pt has a hx of menometrorrhagia. She states that she has been on tamoxifen for 5 years for her breast cancer. States that her oncologist is consdering stopping the tamoxifen, as he doesn't want her to be at risk for uterine/cervical cancer. Pt's Gynecologit has her scheduled for a uterine biopsy. Pt is still considering whether or not she should have a hysterectomy. <Ivette Mora - Last Filed: 03/06/18 00:47> Heart Score/ECG Review - ECG Intrepretation Rhythm: Regular Rhythm - [place]: Normal - P and [place] Delta Wave(s) Present: No WPW: No - ST and T Early Repolarization: No Non Specific ST-T Wave changes: No Flattened T Waves: No Prolonged Q-T Interval: No - ECG Impressions Normal ECG: Yes Non-specific ST Elevation: No Ischemic Changes: No Bradycardia: No Torsades maddy Pointes: No WPW: No <Ivette Mora - Last Filed: 03/06/18 00:47>
--- NOTE | 2018-03-05 22:03 | PDOC ---
History of Present Illness - General Chief Complaint: Vaginal Bleeding Stated Complaint: PCP SENT/BLOOD TRANSFUSION Time Seen by Provider: 03/05/18 21:58 History Source: Patient, Old Records Exam Limitations: No Limitations - History of Present Illness Initial Comments: HPI: 42 y/o female presenting to [facility] ER via private auto on referral from Dr. Paola RODRIGUEZ for critical blood work likely requiring blood transfusion. Pt reports she has been experiencing heavy vaginal bleeding x5 weeks, which stopped spontaneously today. She was evaluated at Dr. Calderon office earlier today. Told vaginal bleeding had stopped, and scheduled for cervical biopsy. Continued discussion for possible hysterectomy. Pt endorses feeling lightheaded , bilateral frontal headache, and fatigued with minimal exertion today. Has experienced similar symptoms in the past when she required blood transfusions. Last here on 02/19/2018 for similar symptoms. Referred back to OBGYN. PCP: Dr. Rodriguez OBGYN: Dr. Guevara Medical Hx: - Breast CA, Left, on Tamoxifen - DVT in 2007 and 2009. No longer on anticoagulants because of bleeding. - Asthma - Increased bilateral ocular pressure, cause unknown and being worked up by optho - Diabetes, on metformin only - HTN - Depression Past History - Past Medical History Allergies/Adverse Reactions: Allergies Allergy/AdvReac Type Severity Reaction Status Date / Time No Known Drug Allergies Allergy Verified 02/19/18 11:05 Home Medications: Ambulatory Orders Albuterol Sulfate Inhaler - [Ventolin HFA Inhaler -] 2 inh PO Q4H 01/24/17 Bupropion HCl [Wellbutrin Sr] 3 tab PO TID 01/24/17 Fluticasone/Salmeterol [Advair Hfa 230-21 Mcg Inhaler] 230 inh IH BID 01/24/17 Gabapentin 400 mg PO TID 01/24/17 Pramipexole Dihydrochloride [Mirapex -] 0.25 mg PO TID 01/24/17 Tamoxifen Citrate 10 mg PO BID 01/24/17 Valsartan/Hydrochlorothiazide [Valsartan-Hctz 320-25 mg Tab] 1 each PO DAILY 01/30 metFORMIN HCL [Metformin HCl] 500 mg PO BID 01/24/17 Oxycodone HCl/Acetaminophen [Oxycodone-Acetaminophen 10-325] 1 each PO Q4H 10/27 Anemia: Yes (Iron deficiency) Asthma: Yes Cancer: Yes (breast LEFT) Cardiac Disorders: (DVTs) CVA: No COPD: No CHF: No DVT: Yes Dementia: No Diabetes: Yes GI Disorders: Yes (hiatal hernia, GERD) Disorders: Yes (microscopic hematuria) HTN: Yes Hypercholesterolemia: No Liver Disease: Yes (fatty liver) Psychiatric Problems: Yes (Depression, anxiety) Seizures: No Thyroid Disease: No - Surgical History Abdominal Surgery: No Appendectomy: No Cardiac Surgery: No Cholecystectomy: No Lung Surgery: No Neurologic Surgery: No Orthopedic Surgery: No - Reproductive History Cervical CA: No Dysfunctional Uterine Bleeding: No Ectopic : No Endometrial CA: No Polycystic Ovaries: No Tubal Ligation: No - Immunization History Immunization Up to Date: Yes - Suicide/Smoking/Psychosocial Hx Smoking Status: Yes Smoking History: Never smoked Have you smoked in the past 12 months: No Number of Cigarettes Smoked Daily: 5 If you are a former smoker, when did you quit?: 21 YRS Cigars Per Day: 0 Information on smoking cessation initiated: No Hx Alcohol Use: No Drug/Substance Use Hx: No Substance Use Type: None Hx Substance Use Treatment: Yes (6 YEARS AGO) Review of Systems - Review of Systems Able to Perform ROS?: Yes Comments:: In addition to that documented in the HPI above, the additional ROS was obtained : Constitutional: Denies fevers or chills or syncope Eyes: Denies vision changes ENMT: Denies sore throat CV: Denies chest pain Resp: Per HPI GI: Denies vomiting or diarrhea : Denies painful urination MSK: Denies recent trauma Skin: Denies new rashes Neuro: Denies new numbness or tingling or weakness Endocrine: Denies polyuria Heme: Per HPI *Physical Exam - Vital Signs Last Vital Signs Temp Pulse Resp BP Pulse Ox 98.7 F 92 H 18 142/65 98 03/05/18 21:50 03/05/18 21:50 03/05/18 21:50 03/05/18 21:50 03/05/18 21:50 - Physical Exam Comments: Constitutional: Well-developed, well-nourished, obese female in no acute distress or obvious discomfort. Found semi-fowlers on hospital bed. Alert and oriented x4. Answered all questions appropriately and completely. Speech was non -labored, non-pressured. Head: Normocephalic. No obvious external signs of trauma. Eyes: Pupils 3mm and PERRL bilaterally. Sclerae white. Conjunctiva moist and pale. EARS: Hearing grossly intact. NOSE: No nasal discharge. THROAT: Oral cavity and pharynx normal. No inflammation, swelling, exudate, or lesions. Neck: Supple, trachea is midline. Cardiovascular: Regular rate and regular rhythm. No murmur, rubs, clicks, or gallops. Peripheral pulses: Radial pulses full. Respiratory: Breathing unlabored. Equal chest rise and fall. Clear to auscultation bilaterally. No stridor, no wheezing, no rhonchi. Gastrointestinal: abdomen is soft, non-tender, non-distended. Neuro: Alert and oriented. Moving all four extremities spontaneously. Gait normal; observed walking through the department unassisted without difficulty. Skin: Warm, dry, and intact. Globally pale appearing. Psych: Affect: appropriate. Mood: normal. Female Pelvic: External genitalia unremarkable. Speculum exam with normal appearing whitish vaginal discharge. Vaginal wall mucosa is unremarkable. Cervix visualized, closed in appearance with scant blood but not oozing from OS. RN chaperoned exam. Moderate Sedation - Procedure Monitoring Vital Signs: Procedure Monitoring Vital Signs Temperature 98.7 F 03/05/18 21:50 Pulse Rate 92 H 03/05/18 21:50 Respiratory Rate 18 03/05/18 21:50 Blood Pressure 142/65 03/05/18 21:50 O2 Sat by Pulse Oximetry (%) 98 03/05/18 21:50 ED Treatment Course - LABORATORY CBC & Chemistry Diagram: 03/05/18 23:40 03/05/18 23:00 Medical Decision Making - Medical Decision Making *Reviewed vital signs, nursing notes, and prior visit documentation (if available). 42 y/o female for symptomatic anemia. H/H found to be 5.3/16. Vitals unremarkable for tachycardia or hypotension. Physical exam as described above. Suspect symptoms are secondary to the five weeks of heavy vaginal bleeding. Pt consented to blood transfusion after risks and benefits were discussed and all questions answered. Two units PRBCs were ordered. Will admit pt for observation and possible additional transfusion. 00:11 Microblog sent to [facility] Admitting for symptomatic anemia. 00:43 Telephone consultation with admitting resident. Verbally appraised of the pts HPI, ED course, and current plan of management. Agrees to admit pt for symptomatic anemia to med/surg on observational status for Dr. Ramirez. *DC/Admit/Observation/Transfer Diagnosis at time of Disposition: Shortness of breath Anemia Qualifiers: Anemia type: unspecified type Qualified Code(s): D64.9 - Anemia, unspecified - Discharge Dispostion Condition at time of disposition: Stable Decision to Admit order: Yes - Referrals - Patient Instructions - Post Discharge Activity
[2018-03-05 23:30] LABS: ALBUMIN 2.8 g/dl (3.4-5.0); ALK PHOS 80 U/L (45-117); ANION GAP 9 MMOL/L (8-16); BILIRUBIN,TOTAL 0.1 mg/dL (0.2-1); BLOOD UREA NITROGEN 16 mg/dL (7-18); CHLORIDE 108 mmol/L (98-107); CO2 25 mmol/L (21-32); CREATININE 0.9 mg/dL (0.55-1.3); GLUCOSE,RANDOM 101 mg/dL (74-106); POTASSIUM 3.9 mmol/L (3.5-5.1); SGOT/AST 16 U/L (15-37); SGPT/ALT 20 U/L (13-61); SODIUM 142 mmol/L (136-145); TOT PROT 6.7 g/dl (6.4-8.2)
[2018-03-05 23:49] LABS: BASO % 0.9 % (0-2.0); EOS % 3.6 % (0-4.5); HEMATOCRIT 16.5 % (32.4-45.2); LYMPH % 22.2 % (8-40); MEAN PLT VOLUME 9.6 fl (7.5-11.1); MONO % 6.7 % (3.8-10.2); NEUT % 66.6 % (42.8-82.8); PLATELET COUNT 174 K/MM3 (134-434); RBC 2.75 M/mm3 (3.60-5.2); RDW 20.5 % (11.6-15.6); WHITE BLOOD COUNT 8.1 K/mm3 (4.0-10.0)
[2018-03-05 23:50] LABS: MCH 19.2 pg (25.7-33.7)
[2018-03-05 23:52] LABS: HEMOGLOBIN 5.3 GM/dL (10.7-15.3)
[2018-03-06 00:45] LABS: INR 1.08 (0.83-1.09); PROTHROMBIN TIME (PATIENT) 12.7 SEC (9.7-13.0)
[2018-03-06] MEDS ORDERED: ALBUTEROL SO4 8 GM HFA INHALER IH PRN (02:30)
--- NOTE | 2018-03-06 02:38 | PN ---
Teaching Attending Note Name of Resident: Paz Hyde ATTENDING PHYSICIAN STATEMENT I saw and evaluated the patient. I reviewed the resident's note and discussed the case with the resident. I agree with the resident's findings and plan as documented. SUBJECTIVE: Patient is a 42 year old woman with a PMH of metrorrhagia, anemia, asthma, left breast cancer (on tamoxifen), DVT (now off xarelto), NIDDM, endometrial hypertrophy, hiatal hernia, GERD, microscopic hematuria, HTN, depression and anxiety, who was sent by OBGYN for blood transfusion. The patient states she has been bleeding for 5 week and COORDINATE MEASURING MACHINE TECHNICIAN recommended a blood transfusion. The patient denies chest pain, shortness of breath, headache and dizziness. She has MADDEN and mild chest discomfort. Scheduled for ?biopsy of the cervix and possibly endometrial sampling. OBJECTIVE: Alert and morbidly obese Vital Signs Period Temp Pulse Resp BP Sys/Ryan Pulse Ox Last 24 Hr 98.0 F-98.7 F 78-92 18-20 92-142/50-65 98-100 HEENT: No Jaundice, eye redness or discharge, +Pallor, PERRLA, EOMI. Normocephalic, atraumatic. External ears are normal and hearing is grossly intact. No nasal discharge. Neck: Supple, nontender. No palpable adenopathy or thyromegaly. No JVD Chest: Good effort. Clear to auscultation and percussion. Heart: Regular. No S3, rub or murmur Abdomen: Not distended, soft, nontender and no HSM. No rebound or guarding. Normoactive bowel sounds. Ext: Peripheral pulses intact. No leg edema. Skin: Warm and dry. No petechiae, rash or ecchymosis. Neuro: Alert. Oriented x3. CN 2-12 grossly intact. Sensation grossly intact in all four extremities and DTR are symmetric. Current Medications Generic Name Dose Route Start Last Admin Trade Name Freq PRN Reason Stop Dose Admin Albuterol Sulfate 2 puff 03/06/18 02:30 Ventolin Hfa Inhaler - IH Q4H SHIRLEY Gabapentin 400 mg 03/06/18 06:00 Neurontin - PO TID SHIRLEY Hydrochlorothiazide 25 mg 03/06/18 10:00 Hctz - PO DAILY SHIRLEY Non-Formulary Medication 3 tab 03/06/18 06:00 Bupropion Hcl [Wellbutrin Sr] PO TID SHIRLEY Non-Formulary Medication 230 inh 03/06/18 10:00 Fluticasone/Salmeterol [Advair Hfa 230-21 Mcg Inhaler] IH BID [facility] Pramipexole Dihydrochloride 0.25 mg 03/06/18 06:00 Mirapex - PO TID [facility] Tamoxifen Citrate 10 mg 03/06/18 10:00 Tamoxifen Citrate PO BID [facility] Valsartan 320 mg 03/06/18 10:00 Diovan - PO DAILY [facility] Home Medications Medication Instructions Recorded Albuterol Sulfate Inhaler - 2 inh PO Q4H 01/24/17 [Ventolin HFA Inhaler -] Bupropion HCl [Wellbutrin Sr] 3 tab PO TID 01/24/17 Fluticasone/Salmeterol [Advair Hfa 230 inh IH BID 01/24/17 230-21 Mcg Inhaler] Gabapentin 400 mg PO TID 01/24/17 Pramipexole Dihydrochloride 0.25 mg PO TID 01/24/17 [Mirapex -] Tamoxifen Citrate 10 mg PO BID 01/24/17 Valsartan/Hydrochlorothiazide 1 each PO DAILY 01/24/17 [Valsartan-Hctz 320-25 mg Tab] metFORMIN HCL [Metformin HCl] 500 mg PO BID 01/24/17 Oxycodone HCl/Acetaminophen 1 each PO Q4H 10/27/17 [Oxycodone-Acetaminophen 10-325] Abnormal Lab Results 03/05/18 03/05/18 03/05/18 23:00 23:40 23:40 RBC 2.75 L Hgb 5.3 L* Hct 16.5 L D MCV 60.0 L D MCH 19.2 L RDW 20.5 H Chloride 108 H Calcium 8.0 L Total Bilirubin 0.1 L Albumin 2.8 L Antibody Screen Positive H Crossmatch See Detail ASSESSMENT AND PLAN: 1. Symptomatic anemia due to Metrorrhagia - Known to have thick endometrium and CT scan on 06/23/17 did not show fibroids. Morbid obesity and abnormal metabolism of sex hormones in adipose tissue likely contributing to dysfunctional uterine bleeding. Patient concedes that inertia on her part has contributed to delay in addressing the root cause of her problems by her PLATFORM ENGINEER doctor. No changes of ischemia on EKG. ECHO from August 2017 showed EF of 71.8% - may have early diastolic dysfunction. Will be transfused. Going forward patient has been asked to discuss IV iron therapy with her PCP to preempt future need for blood transfusions - pending endometrial ablation or hysterectomy or hormonal therapy. 2. DM - Will hold the home diabetes drugs and implement sliding scale insulin regimen. Provide comprehensive diabetes care with patient teaching and counseling about the importance of euglycemia, eye care and foot care. 3. Tobacco Use We will provide patient all the necessary assistance to facilitate smoking cessation and prescribe Nicotine patch. 4. Obesity - Will provide patient all the necessary assistance , counseling and positive reinforcement to facilitate weight loss. Consult reporting analyst. 5. Hypoalbuminemia - Possibly due to combined effects of malnutrition and inflammation associated with comorbid chronic conditions. Will ensure adequate dietary protein intake and also consult reporting analyst. 6. DVT prophylaxis - SCD, TEDs 7. Advance directives - Full code
--- NOTE | 2018-03-06 02:39 | HP ---
CHIEF COMPLAINT: lightheadedness, SOB PCP: Dr Rodriguez HISTORY OF PRESENT ILLNESS: The patient is a 42 year old female with a PMH of breast Ca, (2013, s/p chemo, radiation, on Tamoxifen for 5 years, HER 2, triple +), anemia, menometrorrhagia , DVT ( left leg 2007, bilateral 2009), on Xarelto, asthma, HTN, DMII, RLS that presented tonight to ED referred by her OBGYN. She visited him earlier in the morning and was called around 8:30 PM that she needs to go to the hospital immediately due to low Hgb. The patient has been complaining of heavy menstrual bleeding with blood clots for the past 5 weeks, uses 3 packs pads/day. The patient reports lightheadedness, dizziness, SOB, fatigue. She was seen in [facility] for anemia due to vaginal bleeding in the past, transfused PRBCs. Last time 02/19/18, her Hgb was 9.1 and she was discharged home from ED. The patient states that she has conversations with her OBGYN about hysterectomy, never had endometrial biopsy. States that she is scheduled to have cervical biopsy next week. ER course was notable for: (1)CBC (2)type and screen (3)PRBC 2 units PAST MEDICAL HISTORY: as above PAST SURGICAL HISTORY: left lumpectomy, section Social History: Smokin-2 cigs/week Alcohol:occasionally Drugs: occasionally Family History: mother: , heart disease father: depression Allergies No Known Drug Allergies Allergy (Verified 02/19/18 11:05) HOME MEDICATIONS: Home Medications Medication Instructions Recorded Albuterol Sulfate Inhaler - 2 inh PO Q4H 01/24/17 [Ventolin HFA Inhaler -] Bupropion HCl [Wellbutrin Sr] 3 tab PO TID 01/24/17 Fluticasone/Salmeterol [Advair Hfa 230 inh IH BID 01/24/17 230-21 Mcg Inhaler] Gabapentin 400 mg PO TID 01/24/17 Pramipexole Dihydrochloride 0.25 mg PO TID 01/24/17 [Mirapex -] Tamoxifen Citrate 10 mg PO BID 01/24/17 Valsartan/Hydrochlorothiazide 1 each PO DAILY 01/24/17 [Valsartan-Hctz 320-25 mg Tab] metFORMIN HCL [Metformin HCl] 500 mg PO BID 01/24/17 Oxycodone HCl/Acetaminophen 1 each PO Q4H 10/27/17 [Oxycodone-Acetaminophen 10-325] REVIEW OF SYSTEMS CONSTITUTIONAL: generalized weakness, Absent: fever, chills, diaphoresis, malaise, loss of appetite, weight change HEENT: Absent: rhinorrhea, nasal congestion CARDIOVASCULAR: lightheadedness, Absent: chest pain, syncope, palpitations, irregular heart rate, peripheral edema RESPIRATORY: shortness of breath Absent: cough, dyspnea with exertion, orthopnea, wheezing GASTROINTESTINAL: Absent: abdominal pain, abdominal distension, nausea, vomiting, diarrhea, constipation, GENITOURINARY: Absent: dysuria, frequency, urgency, hesitancy, hematuria, flank pain, genital pain MUSCULOSKELETAL: Absent: myalgia, arthralgia, joint swelling, back pain, neck pain SKIN: Absent: rash HEMATOLOGIC/IMMUNOLOGIC: Absent: easy bleeding, easy bruising, lymphadenopathy ENDOCRINE: Absent: unexplained weight gain, unexplained weight loss NEUROLOGIC: dizziness Absent: headache, focal weakness or paresthesias PSYCHIATRIC: Absent: anxiety, depression PHYSICAL EXAMINATION Vital Signs - 24 hr 03/05/18 03/05/18 03/05/18 21:50 23:11 23:58 Temperature 98.7 F Pulse Rate 92 H Pulse Rate [ 85 Apical] Respiratory 18 20 Rate Blood Pressure 142/65 Blood Pressure 92/52 L [Right Arm] O2 Sat by Pulse 98 100 100 Oximetry (%) GENERAL: Awake, alert, and fully oriented, in no acute distress. HEAD: Normal with no signs of trauma. EYES: Pupils equal, round and reactive to light, extraocular movements intact, sclera anicteric, conjunctiva pale. EARS, NOSE, THROAT: Ears normal, nares patent, oropharynx clear without exudates. Dry, pale, mucous membranes. NECK: Normal range of motion, supple without lymphadenopathy, JVD, or masses. LUNGS: Breath sounds equal, clear to auscultation bilaterally. No wheezes, and no crackles. HEART: Regular rate and rhythm, normal S1 and S2 without murmur, rub or gallop. ABDOMEN: Obese, soft, nontender, not distended, normoactive bowel sounds, no guarding, no rebound, no masses. MUSCULOSKELETAL: Normal range of motion at all joints. No bony deformities or tenderness. UPPER EXTREMITIES: 2+ pulses, warm, no peripheral edema. LOWER EXTREMITIES: 2+ pulses, warm, well-perfused. No calf tenderness. No peripheral edema. NEUROLOGICAL: Non focal. Normal speech. PSYCHIATRIC: Cooperative. Good eye contact. Appropriate mood and affect. SKIN: Warm, dry, normal turgor, no rashes, horizontal scar from left brest to left armpit, well healed. Laboratory Results - last 24 hr 03/05/18 03/05/18 03/05/18 23:00 23:00 23:40 WBC RBC Hgb Hct MCV MCH MCHC RDW Plt Count MPV Absolute Neuts (auto) Neutrophils % Lymphocytes % Monocytes % Eosinophils % Basophils % Nucleated RBC % PT with INR INR PTT (Actin FS) 29.2 Sodium 142 Potassium 3.9 Chloride 108 H Carbon Dioxide 25 Anion Gap 9 BUN 16 Creatinine 0.9 Creat Clearance w eGFR > 60 Random Glucose 101 Calcium 8.0 L Total Bilirubin 0.1 L AST 16 ALT 20 Alkaline Phosphatase 80 Total Protein 6.7 Albumin 2.8 L Serum , Qual Negative Blood Type Antibody Screen Antibody Identification Antigen Identification Crossmatch 03/05/18 03/05/18 03/05/18 23:40 23:40 23:40 WBC 8.1 RBC 2.75 L Hgb 5.3 L* Hct 16.5 L D MCV 60.0 L D MCH 19.2 L MCHC 32.0 RDW 20.5 H Plt Count 174 MPV 9.6 Absolute Neuts (auto) 5.4 Neutrophils % 66.6 Lymphocytes % 22.2 D Monocytes % 6.7 D Eosinophils % 3.6 Basophils % 0.9 Nucleated RBC % 0 PT with INR 12.70 INR 1.08 PTT (Actin FS) Sodium Potassium Chloride Carbon Dioxide Anion Gap BUN Creatinine Creat Clearance w eGFR Random Glucose Calcium Total Bilirubin AST ALT Alkaline Phosphatase Total Protein Albumin Serum , Qual Blood Type O POSITIVE Antibody Screen Positive H Antibody Identification K Antigen Identification K Antigen - NEGATIVE Crossmatch See Detail ASSESSMENT/PLAN: The patient is a 42 year old female with a PMH of breast Ca, (2013, s/p chemo, radiation, on Tamoxifen for 5 years, HER 2, triple +), anemia, menometrorrhagia , DVT ( left leg 2007, bilateral 2009), on Xarelto, asthma, HTN, DMII, RLS that presented tonight to ED with symptomatic anemia. Symptomatic anemia with menometrorrhagia: -the patient has a long history of heavy vaginal bleeding and anemia that requires PRBC transfusion, possibly exacerbated by anticoagulation in light of morbid obesity, endometrial biopsy never done to evaluate, last US: increased thickness 3.9 cm of endometrial lining -found to have Hgb 5.3 -ordered 2 units of PRBC -CBC after second unit -viatal signs stale, no need for Oxygen supplementation -counseled about importance of f/u with her OBGYN, risks of multiple blood transfusions, compliance to iron supplementation -f/u OBGYN recommendations Morbid obesity: -counseled about weight loss, diet modification and healthy lifestyle Asthma: -resumed Albuterol, Singulair -please confirm medications with pharmacy Breast Ca: -cont Tamoxifen DMII: -ISS ACHS -BGM ACHS -low sodium/diabetic diet -counseling provided -HgA1c HTN: -continue Valsartan/HCTZ RLS: -confirm home meds F/E/N: no/no changes/low Na DVT PPX: -scds -no Xarelto Dispo: -obs med surg PLEASE CONFIRM MEDICATIONS WITH PHARMACY IN THE MORNING. Problem List - Problem (1) Anemia Code(s): D64.9 - ANEMIA, UNSPECIFIED Qualifiers: Anemia type: unspecified type Qualified Code(s): D64.9 - Anemia, unspecified (2) Shortness of breath Code(s): R06.02 - SHORTNESS OF BREATH (3) Asthma Code(s): J45.909 - UNSPECIFIED ASTHMA, UNCOMPLICATED Qualifiers: Asthma severity: mild Asthma persistence: intermittent Asthma complication type: uncomplicated Qualified Code(s): J45.20 - Mild intermittent asthma, uncomplicated (4) Breast cancer, left Code(s): C50.912 - MALIGNANT NEOPLASM OF UNSPECIFIED SITE OF LEFT FEMALE BREAST Qualifiers: Breast location: upper outer quadrant of breast (5) Heavy menstrual bleeding Code(s): N92.0 - EXCESSIVE AND FREQUENT MENSTRUATION WITH REGULAR CYCLE Qualifiers: Menorrahagia type: with regular cycle Qualified Code(s): N92.0 - Excessive and frequent menstruation with regular cycle (6) History of DVT (deep vein thrombosis) Code(s): Z86.718 - PERSONAL HISTORY OF OTHER VENOUS THROMBOSIS AND EMBOLISM (7) Hypertension Code(s): I10 - ESSENTIAL (PRIMARY) HYPERTENSION (8) Morbidly obese Code(s): E66.01 - MORBID (SEVERE) OBESITY DUE TO EXCESS CALORIES Visit type - Emergency Visit Emergency Visit: Yes ED Registration Date: 03/06/18 Care time: The patient presented to the Emergency Department on the above date and was hospitalized for further evaluation of their emergent condition. - New Patient This patient is new to me today: Yes Date on this admission: 03/06/18 - Critical Care Critical Care patient: No
[2018-03-06 03:03] LABS: ANISOCYTOSIS 3+; MACROCYTOSIS 0; PLATELET ESTIMATE DECREASED; TARGET CELLS 1+
[2018-03-06 04:02] VITALS: BMI 55.0
[2018-03-06] MEDS ORDERED: PRAMIPEXOLE DIHYDROCHLORIDE 0.25 MG TABLET PO SCH (06:00)
[2018-03-06] MEDS ORDERED: buPROPion HCL 75 MG TABLET PO SCH (06:00)
[2018-03-06] MEDS ORDERED: GABAPENTIN 400 MG CAPSULE (FP) PO SCH (06:00)
[2018-03-06] MEDS: INSULIN SLIDING SCALE (NOVOLOG) 1 VIAL SQ SCH ×4 (06:14→21:32)
[2018-03-06] MEDS ORDERED: PATIENT'S OWN MEDICATION (NON-FORMULARY) (Valsartan/Hydrochlorothiazide [Valsartan-Hctz 32 PO SCH (10:00)
[2018-03-06] MEDS ORDERED: PT OWN MED DRAWER 7, Y5N ONE ×2 (10:01→21:17)
[2018-03-06] MEDS: HYDROCHLOROTHIAZIDE 25 MG TABLET (FP) PO SCH (10:12)
[2018-03-06] MEDS: TAMOXIFEN CITRATE 10 MG TABLET PO SCH ×2 (10:12→21:32)
[2018-03-06] MEDS: VALSARTAN 160 MG TABLET (UD) PO SCH (10:12)
[2018-03-06] MEDS: BUDESONIDE/FORMETEROL FUMARATE 160/4.5 mcg INHALER IH SCH ×2 (10:12→21:32)
[2018-03-06 13:25] LABS: HEMATOCRIT 22.7 % (32.4-45.2); HEMOGLOBIN 7.4 GM/dL (10.7-15.3); MCH 20.9 pg (25.7-33.7); MCHC 32.6 g/dl (32.0-36.0); MEAN CELL VOLUME 64.2 fl (80-96); MEAN PLT VOLUME 9.2 fl (7.5-11.1); PLATELET COUNT 171 K/MM3 (134-434); RBC 3.54 M/mm3 (3.60-5.2); RDW 23.2 % (11.6-15.6); WHITE BLOOD COUNT 11.5 K/mm3 (4.0-10.0)
[2018-03-06 13:39] LABS: ALBUMIN 3.1 g/dl (3.4-5.0); ALK PHOS 87 U/L (45-117); ANION GAP 7 MMOL/L (8-16); BLOOD UREA NITROGEN 13 mg/dL (7-18); CALCIUM 8.3 mg/dL (8.5-10.1); CHLORIDE 105 mmol/L (98-107); CO2 28 mmol/L (21-32); CREATININE 0.8 mg/dL (0.55-1.3); GLUCOSE,RANDOM 92 mg/dL (74-106); PHOSPHOROUS 4.1 mg/dL (2.5-4.9); SGOT/AST 16 U/L (15-37); SGPT/ALT 21 U/L (13-61); SODIUM 139 mmol/L (136-145); TOT PROT 7.5 g/dl (6.4-8.2)
[2018-03-06 13:40] LABS: INR 1.09 (0.83-1.09); PROTHROMBIN TIME (PATIENT) 12.9 SEC (9.7-13.0)
--- NOTE | 2018-03-06 14:07 | PN ---
Physical Exam: SUBJECTIVE: Patient seen and examined. She reports continued dizziness after 2 units PRBCs OBJECTIVE: Vital Signs Period Temp Pulse Resp BP Sys/Ryan Pulse Ox Last 24 Hr 97.6 F-98.7 F 64-92 18-20 92-148/48-81 98-100 GENERAL: The patient is awake, alert, and fully oriented, in no acute distress. LUNGS: Breath sounds equal, clear to auscultation bilaterally, no wheezes, no crackles, no accessory muscle use. HEART: Regular rate and rhythm, S1, S2 without murmur, rub or gallop. ABDOMEN: Obese, soft, nontender, nondistended, normoactive bowel sounds, no guarding, no rebound, no hepatosplenomegaly, no masses. EXTREMITIES: 2+ pulses, warm, well-perfused, no edema. Laboratory Results - last 24 hr 03/05/18 03/05/18 03/05/18 23:00 23:00 23:40 WBC RBC Hgb Hct MCV MCH MCHC RDW Plt Count MPV Absolute Neuts (auto) Neutrophils % Lymphocytes % Monocytes % Eosinophils % Basophils % Nucleated RBC % Hypochromia Platelet Estimate Polychromasia Poikilocytosis Anisocytosis Microcytosis Macrocytosis Target Cells PT with INR INR PTT (Actin FS) 29.2 Sodium 142 Potassium 3.9 Chloride 108 H Carbon Dioxide 25 Anion Gap 9 BUN 16 Creatinine 0.9 Creat Clearance w eGFR > 60 POC Glucometer Random Glucose 101 Hemoglobin A1c % Calcium 8.0 L Phosphorus Magnesium Total Bilirubin 0.1 L AST 16 ALT 20 Alkaline Phosphatase 80 Total Protein 6.7 Albumin 2.8 L Serum , Qual Negative Blood Type Antibody Screen Antibody Identification Antigen Identification Crossmatch 03/05/18 03/05/18 03/05/18 23:40 23:40 23:40 WBC 8.1 RBC 2.75 L Hgb 5.3 L* Hct 16.5 L D MCV 60.0 L D MCH 19.2 L MCHC 32.0 RDW 20.5 H Plt Count 174 MPV 9.6 Absolute Neuts (auto) 5.4 Neutrophils % 66.6 Lymphocytes % 22.2 D Monocytes % 6.7 D Eosinophils % 3.6 Basophils % 0.9 Nucleated RBC % 0 Hypochromia 3+ Platelet Estimate Decreased Polychromasia 2+ Poikilocytosis 2+ Anisocytosis 3+ Microcytosis 3+ Macrocytosis 0 Target Cells 1+ PT with INR 12.70 INR 1.08 PTT (Actin FS) Sodium Potassium Chloride Carbon Dioxide Anion Gap BUN Creatinine Creat Clearance w eGFR POC Glucometer Random Glucose Hemoglobin A1c % Calcium Phosphorus Magnesium Total Bilirubin AST ALT Alkaline Phosphatase Total Protein Albumin Serum , Qual Blood Type O POSITIVE Antibody Screen Positive H Antibody Identification K Antigen Identification K Antigen - NEGATIVE Crossmatch See Detail 03/06/18 03/06/18 03/06/18 05:46 12:04 12:55 WBC 11.5 H RBC 3.54 L Hgb 7.4 L Hct 22.7 L D MCV 64.2 L D MCH 20.9 L MCHC 32.6 RDW 23.2 H Plt Count 171 MPV 9.2 Absolute Neuts (auto) Neutrophils % Lymphocytes % Monocytes % Eosinophils % Basophils % Nucleated RBC % Hypochromia Platelet Estimate Polychromasia Poikilocytosis Anisocytosis Microcytosis Macrocytosis Target Cells PT with INR INR PTT (Actin FS) Sodium Potassium Chloride Carbon Dioxide Anion Gap BUN Creatinine Creat Clearance w eGFR POC Glucometer 152 87 Random Glucose Hemoglobin A1c % Calcium Phosphorus Magnesium Total Bilirubin AST ALT Alkaline Phosphatase Total Protein Albumin Serum , Qual Blood Type Antibody Screen Antibody Identification Antigen Identification Crossmatch 03/06/18 03/06/18 03/06/18 12:55 12:55 12:55 WBC RBC Hgb Hct MCV MCH MCHC RDW Plt Count MPV Absolute Neuts (auto) Neutrophils % Lymphocytes % Monocytes % Eosinophils % Basophils % Nucleated RBC % Hypochromia Platelet Estimate Polychromasia Poikilocytosis Anisocytosis Microcytosis Macrocytosis Target Cells PT with INR 12.90 INR 1.09 PTT (Actin FS) 29.0 Sodium 139 Potassium 4.0 Chloride 105 Carbon Dioxide 28 Anion Gap 7 L BUN 13 Creatinine 0.8 Creat Clearance w eGFR > 60 POC Glucometer Random Glucose 92 Hemoglobin A1c % 5.2 Calcium 8.3 L Phosphorus 4.1 Magnesium 2.0 Total Bilirubin 1.0 AST 16 ALT 21 Alkaline Phosphatase 87 Total Protein 7.5 Albumin 3.1 L Serum , Qual Blood Type Antibody Screen Antibody Identification Antigen Identification Crossmatch Active Medications Generic Name Dose Route Start Last Admin Trade Name Freq PRN Reason Stop Dose Admin Albuterol Sulfate 2 puff 03/06/18 02:30 Ventolin Hfa Inhaler - IH Q4H PRN SHORT OF BREATH/WHEEZING Budesonide/Formoterol Fumarate 2 puff 03/06/18 10:00 03/06/18 10:12 Symbicort 160/4.5mcg - IH 2 puff BID SHIRLEY Administration Bupropion HCl 150 mg 03/06/18 06:00 Wellbutrin - PO TID SHIRLEY Gabapentin 400 mg 03/06/18 06:00 Neurontin - PO TID SHIRLEY Hydrochlorothiazide 25 mg 03/06/18 10:00 03/06/18 10:12 Hctz - PO 25 mg DAILY SHIRLEY Administration Insulin Aspart 1 vial 03/06/18 07:00 03/06/18 12:12 Novolog Vial Sliding Scale - SQ Not Given ACHS [facility] Protocol Pramipexole Dihydrochloride 0.25 mg 03/06/18 06:00 Mirapex - PO TID SHIRLEY Tamoxifen Citrate 10 mg 03/06/18 10:00 03/06/18 10:12 Tamoxifen Citrate PO 10 mg BID SHIRLEY Administration Valsartan 320 mg 03/06/18 10:00 03/06/18 10:12 Diovan - PO 320 mg DAILY SHIRLEY Administration ASSESSMENT/PLAN: This is a 42 year old woman with a history of breast cancer, anemia, metromenorrhagia, DVT, asthma, HTN, type 2 DM, RLS, obesity who presented to the ED with dizziness, SOB, fatigue. 1. Symptomatic acute blood loss anemia secondary to metromenorrhagia on chronic iron deficiency anemia - Transfused 2 units PRBCs with Hgb 5.3 -> 7.4, but still with dizziness - Transfuse additional 1 unit PRBCs today - Start iron supplementation - Continue to monitor hemoglobin - Outpatient cashier payments received follow up 2. Asthma - Stable - Continue Symbicort, albuterol as needed 3. Type 2 DM - HbA1c 5.2 - Metformin held - Continue Novolog sliding scale 4. Breast cancer - Continue Tamoxifen 5. History of DVT 6. Restless leg syndrome - Continue Mirapex 7. HTN - Continue Diovan, HCTZ 8. Morbid obesity with BMI 55.0 Visit type - Emergency Visit Emergency Visit: Yes ED Registration Date: 03/06/18 Care time: The patient presented to the Emergency Department on the above date and was hospitalized for further evaluation of their emergent condition. - New Patient This patient is new to me today: Yes Date on this admission: 03/06/18 - Critical Care Critical Care patient: No - Discharge Referral Referred to [facility] No
--- NOTE | 2018-03-06 15:46 | EKG ---
Test Reason : Blood Pressure : / mmHG Vent. Rate : 091 BPM Atrial Rate : 091 BPM P-R Int : 178 ms QRS Dur : 098 ms QT Int : 374 ms P-R-T Axes : 036 003 074 degrees QTc Int : 460 ms NORMAL SINUS RHYTHM NORMAL ECG WHEN COMPARED WITH ECG OF 26-AUG-2017 05:26, NO SIGNIFICANT CHANGE WAS FOUND Confirmed by ALIYAH CURIEL MD ([id number]) on 03/06/2018 3:45:59 PM Referred By: Confirmed By:ALIYAH CURIEL MD
[2018-03-06] MEDS ORDERED: INSULIN (NOVOLOG) ASPART 100 UNITS/ML 10ML VIAL ONE (21:18)
[2018-03-06 21:53] LABS: HEMATOCRIT 24.8 % (32.4-45.2); HEMOGLOBIN 8.3 GM/dL (10.7-15.3); MCH 21.9 pg (25.7-33.7); MCHC 33.6 g/dl (32.0-36.0); MEAN CELL VOLUME 65.2 fl (80-96); MEAN PLT VOLUME 9.1 fl (7.5-11.1); PLATELET COUNT 160 K/MM3 (134-434); WHITE BLOOD COUNT 11.4 K/mm3 (4.0-10.0)
[2018-03-07] MEDS: INSULIN SLIDING SCALE (NOVOLOG) 1 VIAL SQ SCH ×4 (05:59→21:34)
[2018-03-07] MEDS: FERROUS SO4 325 MG TABLET (FP) PO SCH (07:50)
[2018-03-07 08:32] LABS: HEMOGLOBIN 8.5 GM/dL (10.7-15.3); MCH 20.6 pg (25.7-33.7); MCHC 31.3 g/dl (32.0-36.0); MEAN CELL VOLUME 65.8 fl (80-96); MEAN PLT VOLUME 9.2 fl (7.5-11.1); PLATELET COUNT 150 K/MM3 (134-434); RDW 24.7 % (11.6-15.6); WHITE BLOOD COUNT 10.9 K/mm3 (4.0-10.0)
[2018-03-07] MEDS: VALSARTAN 160 MG TABLET (UD) PO SCH (10:38)
[2018-03-07] MEDS: HYDROCHLOROTHIAZIDE 25 MG TABLET (FP) PO SCH (10:39)
[2018-03-07] MEDS: BUDESONIDE/FORMETEROL FUMARATE 160/4.5 mcg INHALER IH SCH ×2 (10:40→21:37)
[2018-03-07] MEDS ORDERED: PT OWN MED DRAWER 7, Y5N ONE ×2 (10:43→21:33)
[2018-03-07] MEDS: TAMOXIFEN CITRATE 10 MG TABLET PO SCH ×2 (10:48→21:34)
--- NOTE | 2018-03-07 18:17 | PN ---
Teaching Attending Note Name of Resident: Lupis Allen ATTENDING PHYSICIAN STATEMENT I saw and evaluated the patient. I reviewed the resident's note and discussed the case with the resident. I agree with the resident's findings and plan as documented. SUBJECTIVE: Patient continues to feel dizzy and short of breath. OBJECTIVE: Vital Signs Period Temp Pulse Resp BP Sys/Ryan Pulse Ox Last 24 Hr 97.6 F-98.4 F 70-88 18-20 116-131/63-78 97-98 GENERAL: The patient is awake, alert, and fully oriented, in no acute distress. LUNGS: Breath sounds equal, clear to auscultation bilaterally, no wheezes, no crackles, no accessory muscle use. HEART: Regular rate and rhythm, S1, S2 without murmur, rub or gallop. ABDOMEN: Obese, soft, nontender, nondistended, normoactive bowel sounds, no guarding, no rebound, no hepatosplenomegaly, no masses. EXTREMITIES: 2+ pulses, warm, well-perfused, no edema. Laboratory Results - last 24 hr 03/05/18 03/06/18 03/06/18 23:40 21:28 21:30 WBC 11.4 H RBC 3.80 Hgb 8.3 L Hct 24.8 L MCV 65.2 L MCH 21.9 L MCHC 33.6 RDW 25.0 H Plt Count 160 MPV 9.1 POC Glucometer 120 B-Natriuretic Peptide Blood Type O POSITIVE Antibody Screen Positive H Antibody Identification K Antigen Identification K Antigen - NEGATIVE Crossmatch See Detail 03/07/18 03/07/18 03/07/18 05:46 07:30 07:30 WBC 10.9 H RBC 4.10 Hgb 8.5 L Hct 27.0 L MCV 65.8 L MCH 20.6 L MCHC 31.3 L RDW 24.7 H Plt Count 150 MPV 9.2 POC Glucometer 111 B-Natriuretic Peptide 29.9 Blood Type Antibody Screen Antibody Identification Antigen Identification Crossmatch 03/07/18 03/07/18 11:43 17:13 WBC RBC Hgb Hct MCV MCH MCHC RDW Plt Count MPV POC Glucometer 89 97 B-Natriuretic Peptide Blood Type Antibody Screen Antibody Identification Antigen Identification Crossmatch Current Medications Generic Name Dose Route Start Last Admin Trade Name Freq PRN Reason Stop Dose Admin Albuterol Sulfate 2 puff 03/06/18 02:30 Ventolin Hfa Inhaler - IH Q4H PRN SHORT OF BREATH/WHEEZING Budesonide/Formoterol Fumarate 2 puff 03/06/18 10:00 03/07/18 10:40 Symbicort 160/4.5mcg - IH 2 puff BID SHIRLEY Administration Bupropion HCl 150 mg 03/06/18 06:00 Wellbutrin - PO TID SHIRLEY Ferrous Sulfate 325 mg 03/07/18 08:00 03/07/18 07:50 Feosol - PO 325 mg DAILY@0800 SHIRLEY Administration Gabapentin 400 mg 03/06/18 06:00 Neurontin - PO TID SHIRLEY Hydrochlorothiazide 25 mg 03/06/18 10:00 03/07/18 10:39 Hctz - PO 25 mg DAILY SHIRLEY Administration Insulin Aspart 1 vial 03/06/18 07:00 03/07/18 17:14 Novolog Vial Sliding Scale - SQ Not Given ACHS [facility] Protocol Pramipexole Dihydrochloride 0.25 mg 03/07/18 22:00 Mirapex - PO TID SHIRLEY Tamoxifen Citrate 10 mg 03/06/18 10:00 03/07/18 10:48 Tamoxifen Citrate PO 10 mg BID SHIRLEY Administration Valsartan 320 mg 03/06/18 10:00 03/07/18 10:38 Diovan - PO 320 mg DAILY SHIRLEY Administration ASSESSMENT AND PLAN: This is a 42 year old woman with a history of breast cancer, anemia, metromenorrhagia, DVT, asthma, HTN, type 2 DM, RLS, obesity who presented to the ED with dizziness, SOB, fatigue. 1. Symptomatic acute blood loss anemia secondary to metromenorrhagia on chronic iron deficiency anemia - Transfused 3 units PRBCs with Hgb 5.3 -> 8.5, but still with dizziness and SOB - CXR, head CT unremarkable - Echo ordered - Continue iron supplementation - Continue to monitor hemoglobin - Outpatient gun tester follow up 2. Asthma - Stable - Continue Symbicort, albuterol as needed 3. Type 2 DM - HbA1c 5.2 - Metformin held - Continue Novolog sliding scale 4. Breast cancer - Continue Tamoxifen 5. History of DVT 6. Restless leg syndrome - Continue Mirapex 7. HTN - Continue Diovan, HCTZ 8. Morbid obesity with BMI 55.0
--- NOTE | 2018-03-07 18:20 | PN ---
Physical Exam: SUBJECTIVE: Patient seen and examined at bed side this morning. Still complaining of dizziness and shortness of breath even at rest. Denies chest pain , palpitations, abdominal pain, nausea or vomiting. Bowel/Bladder habit normal. Spotting blood per vagina yesterday, none today. Sleep/Appetite normal. Patient requesting to go home tomorrow for Wilberto. As per RN, noticed SOB even while going to the bathroom. OBJECTIVE: Vital Signs Period Temp Pulse Resp BP Sys/Ryan Pulse Ox Last 24 Hr 97.6 F-98.4 F 70-88 18-20 116-131/63-78 97-98 GENERAL: Morbidly obese female, sitting in a chair, is awake, alert, and fully oriented, in mild respiratory distress. HEAD: Normal with no signs of trauma. EYES: EOM intact, pallor +, no icterus. ENT: Ears normal, moist mucous membranes. NECK: Supple. LUNGS: Breath sounds equal, clear to auscultation bilaterally, no wheezes, no crackles, no accessory muscle use. HEART: Regular rate and rhythm, S1, S2 without murmur. ABDOMEN: Soft, nontender, no organomegaly. EXTREMITIES: 2+ pulses, warm, well-perfused, no edema. NEUROLOGICAL: No facial droop. Normal speech, gait not observed. PSYCH: Normal mood, normal affect. SKIN: Warm, dry, normal turgor, no rashes or lesions noted Laboratory Results - last 24 hr 03/05/18 03/06/18 03/06/18 23:40 21:28 21:30 WBC 11.4 H RBC 3.80 Hgb 8.3 L Hct 24.8 L MCV 65.2 L MCH 21.9 L MCHC 33.6 RDW 25.0 H Plt Count 160 MPV 9.1 POC Glucometer 120 B-Natriuretic Peptide Blood Type O POSITIVE Antibody Screen Positive H Antibody Identification K Antigen Identification K Antigen - NEGATIVE Crossmatch See Detail 03/07/18 03/07/18 03/07/18 05:46 07:30 07:30 WBC 10.9 H RBC 4.10 Hgb 8.5 L Hct 27.0 L MCV 65.8 L MCH 20.6 L MCHC 31.3 L RDW 24.7 H Plt Count 150 MPV 9.2 POC Glucometer 111 B-Natriuretic Peptide 29.9 Blood Type Antibody Screen Antibody Identification Antigen Identification Crossmatch 03/07/18 03/07/18 11:43 17:13 WBC RBC Hgb Hct MCV MCH MCHC RDW Plt Count MPV POC Glucometer 89 97 B-Natriuretic Peptide Blood Type Antibody Screen Antibody Identification Antigen Identification Crossmatch Active Medications Generic Name Dose Route Start Last Admin Trade Name Freq PRN Reason Stop Dose Admin Albuterol Sulfate 2 puff 03/06/18 02:30 Ventolin Hfa Inhaler - IH Q4H PRN SHORT OF BREATH/WHEEZING Budesonide/Formoterol Fumarate 2 puff 03/06/18 10:00 03/07/18 10:40 Symbicort 160/4.5mcg - IH 2 puff BID SHIRLEY Administration Bupropion HCl 150 mg 03/06/18 06:00 Wellbutrin - PO TID SHIRLEY Ferrous Sulfate 325 mg 03/07/18 08:00 03/07/18 07:50 Feosol - PO 325 mg DAILY@0800 SHIRLEY Administration Gabapentin 400 mg 03/06/18 06:00 Neurontin - PO TID SHIRLEY Hydrochlorothiazide 25 mg 03/06/18 10:00 03/07/18 10:39 Hctz - PO 25 mg DAILY SHIRLEY Administration Insulin Aspart 1 vial 03/06/18 07:00 03/07/18 17:14 Novolog Vial Sliding Scale - SQ Not Given ACHS [facility] Protocol Pramipexole Dihydrochloride 0.25 mg 03/07/18 22:00 Mirapex - PO TID SHIRLEY Tamoxifen Citrate 10 mg 03/06/18 10:00 03/07/18 10:48 Tamoxifen Citrate PO 10 mg BID SHIRLEY Administration Valsartan 320 mg 03/06/18 10:00 03/07/18 10:38 Diovan - PO 320 mg DAILY SHIRLEY Administration ASSESSMENT/PLAN: Patient is a 42 year old morbidly obese female with a PMHx of breast cancer s/p lumpectomy completed chemo radiation; anemia, metromenorrhagia, DVT, asthma, HTN , type 2 DM, RLS, obesity who presented to the ED with dizziness, SOB, fatigue. # Symptomatic acute blood loss anemia likely secondary to metromenorrhagia Was sent from PCP's office due to Hb of 5 g/dl. Has hx blood transfusion > 5 times. Given total of 3 PRBC. H/H 8.5/ today. Since she is still symptomatic, will give one PRBC today. Repeat CBC in AM Continue Ferrous Sulphate 325 mg PO Daily Needs outpatient f/up with [facility]. CXR was done for SOB, shows has a right jugular line in place. Patient says it hasn't been accessed since a year. They tried to remove it twice but once had bronchitis and the other time had difficulty in breathing so it was never removed. # Dizziness Head CT done today, negative for acute pathology ECHO ordered for AM # SOB could be due to Asthma vs OHS Morbidly obese, could have sleep apnea, needs sleep study as outpatient. Continue Symbicort, albuterol as needed # DM (A1c 5.2) Continue ISS, Finger stick BGM, monitor for hypoglycemia # Breast cancer s/p lumpectomy, completed chemo/radiation 2016 On Tamoxifen 10 mg PO BID # Restless leg syndrome Continue Mirapex 0.25 mg PO TID # HTN- controlled Continue Diovan, HCTZ # FEN Not on IV fluids Electrolytes WNL Sodium/diabetic diet # Prophylaxis FOr DVT: SCDs, not on heparin due to acute blood loss anemia For GI: not indicated # Code Status Full Code # Dispo: D/c planning in AM Illness, Investigation and Plan of care explained to the patient. She verbalized understanding. Case discussed with Dr. Griffin. Visit type - Emergency Visit Emergency Visit: Yes ED Registration Date: 03/06/18 Care time: The patient presented to the Emergency Department on the above date and was hospitalized for further evaluation of their emergent condition. - New Patient This patient is new to me today: Yes Date on this admission: 03/07/18 - Critical Care Critical Care patient: No - Discharge Referral Referred to [facility] Med P.C.: No
[2018-03-07] MEDS: PRAMIPEXOLE DIHYDROCHLORIDE 0.25 MG TABLET PO SCH (21:34)
[2018-03-07 21:46] LABS: HEMATOCRIT 29.3 % (32.4-45.2); HEMOGLOBIN 9.2 GM/dL (10.7-15.3); MCH 21.2 pg (25.7-33.7); MCHC 31.4 g/dl (32.0-36.0); MEAN CELL VOLUME 67.6 fl (80-96); RBC 4.33 M/mm3 (3.60-5.2); WHITE BLOOD COUNT 12.7 K/mm3 (4.0-10.0)
[2018-03-07 22:19] LABS: MEAN PLT VOLUME 9.2 fl (7.5-11.1); PLATELET COUNT 171 K/MM3 (134-434)
[2018-03-08] MEDS: PRAMIPEXOLE DIHYDROCHLORIDE 0.25 MG TABLET PO SCH ×2 (06:09→14:54)
[2018-03-08] MEDS: INSULIN SLIDING SCALE (NOVOLOG) 1 VIAL SQ SCH ×2 (06:09→12:14)
[2018-03-08 07:23] LABS: HEMATOCRIT 28.3 % (32.4-45.2); HEMOGLOBIN 8.7 GM/dL (10.7-15.3); MCH 20.7 pg (25.7-33.7); MCHC 30.8 g/dl (32.0-36.0); MEAN CELL VOLUME 67.2 fl (80-96); PLATELET COUNT 138 K/MM3 (134-434); RBC 4.21 M/mm3 (3.60-5.2); RDW 25.3 % (11.6-15.6); WHITE BLOOD COUNT 11.2 K/mm3 (4.0-10.0)
[2018-03-08] MEDS ORDERED: PT OWN MED DRAWER 7, Y5N ONE ×2 (09:15→14:09)
[2018-03-08] MEDS: VALSARTAN 160 MG TABLET (UD) PO SCH (09:24)
[2018-03-08] MEDS: HYDROCHLOROTHIAZIDE 25 MG TABLET (FP) PO SCH (09:24)
[2018-03-08] MEDS: FERROUS SO4 325 MG TABLET (FP) PO SCH (09:24)
[2018-03-08] MEDS: BUDESONIDE/FORMETEROL FUMARATE 160/4.5 mcg INHALER IH SCH (10:30)
[2018-03-08] MEDS: TAMOXIFEN CITRATE 10 MG TABLET PO SCH (12:10)
[2018-03-08 13:31] VITALS: BP 146/74; PULSE 78; TEMP 98.2
[2018-03-08] MEDS ORDERED: RANITIDINE HCL 150 MG TABLET (FP) PO ONE (14:46)
--- NOTE | 2018-03-08 16:31 | DS ---
Physical Exam: SUBJECTIVE: Patient seen and examined OBJECTIVE: Vital Signs Period Temp Pulse Resp BP Sys/Ryan Pulse Ox Last 24 Hr 97.8 F-98.4 F 70-80 20-20 110-146/50-74 98-98 PHYSICAL EXAM GENERAL: The patient is awake, alert, and fully oriented, in no acute distress. HEAD: Normal with no signs of trauma. EYES: PERRL, extraocular movements intact, sclera anicteric, conjunctiva clear. ENT: Ears normal, nares patent, oropharynx clear without exudates, moist mucous membranes. NECK: Trachea midline, full range of motion, supple. LUNGS: Breath sounds equal, clear to auscultation bilaterally, no wheezes, no crackles, no accessory muscle use. HEART: Regular rate and rhythm, S1, S2 without murmur, rub or gallop. ABDOMEN: Soft, nontender, nondistended, normoactive bowel sounds, no guarding, no rebound, no hepatosplenomegaly, no masses. EXTREMITIES: 2+ pulses, warm, well-perfused, no edema. NEUROLOGICAL: Cranial nerves II through XII grossly intact. Normal speech, gait not observed. PSYCH: Normal mood, normal affect. SKIN: Warm, dry, normal turgor, no rashes or lesions noted. LABS Laboratory Results - last 24 hr 03/07/18 03/07/18 03/07/18 17:13 21:29 21:33 WBC 12.7 H RBC 4.33 Hgb 9.2 L Hct 29.3 L MCV 67.6 L MCH 21.2 L MCHC 31.4 L RDW 25.0 H Plt Count 171 MPV 9.2 Platelet Comment POC Glucometer 97 114 03/08/18 03/08/18 03/08/18 05:41 06:30 12:13 WBC 11.2 H RBC 4.21 Hgb 8.7 L Hct 28.3 L MCV 67.2 L MCH 20.7 L MCHC 30.8 L RDW 25.3 H Plt Count 138 MPV 9.0 Platelet Comment POC Glucometer 109 90 HOSPITAL COURSE: Date of Admission:03/06/18 Date of Discharge: 03/08/18 Minutes to complete discharge: 30 Discharge Summary Reason For Visit: SHORTNES OF BREATH ANEMIA Current Active Problems Acute blood loss anemia (Acute) Headache (Acute) Shortness of breath (Acute) Vaginal bleeding (Acute) Abnormal menses (Chronic) Anemia (Chronic) Anxiety and depression (Chronic) Asthma (Chronic) Breast cancer, left (Chronic) History of DVT (deep vein thrombosis) (Chronic) Hypertension (Chronic) Lower back pain (Chronic) Morbidly obese (Chronic) Restless leg syndrome (Chronic) Sleep apnea in adult (Chronic) Type 2 diabetes mellitus (Chronic) Condition: Improved - Instructions Diet, Activity, Other Instructions: You were admitted to [facility] on Mar 05 because of anemia associated with dizziness and shortness of breath. You were found to have hemoglobin 5.3. You were transfused 3 units of blood and your hemoglobin improved to 8.7. CT scan of your head was done and was normal except for mild amount of debris in the left sphenoid sinus. Echocardiogram was done and is pending at the time of discharge on Mar 08. You may resume your usual activity and your usual diet. Please schedule appointments with your primary care physician, Dr. Tyrone Rodriguez, this week, and your crop puller next week. Please return to the ER if you develop chest pain, shortness of breath, dizziness. Referrals: Tyrone Rodriguez MD [Staff Physician] - 1 Week Disposition: HOME - Home Medications Comprehensive Discharge Medication List: Ambulatory Orders Albuterol Sulfate Inhaler - [Ventolin HFA Inhaler -] 2 inh PO Q4H 01/24/17 Bupropion HCl [Wellbutrin Sr] 3 tab PO TID 01/24/17 Fluticasone/Salmeterol [Advair Hfa 230-21 Mcg Inhaler] 230 inh IH BID 01/24/17 Gabapentin 400 mg PO TID 01/24/17 Pramipexole Dihydrochloride [Mirapex -] 0.25 mg PO TID 01/24/17 Tamoxifen Citrate 10 mg PO BID 01/24/17 Valsartan/Hydrochlorothiazide [Valsartan-Hctz 320-25 mg Tab] 1 each PO DAILY 01/30 metFORMIN HCL [Metformin HCl] 500 mg PO BID 01/24/17 Oxycodone HCl/Acetaminophen [Oxycodone-Acetaminophen 10-325] 1 each PO Q4H 10/27 - Discharge Referral Referred to [facility] Med P.C.: No
== END 2018-03-08 17:34 | disposition home or self-care (01) | DRG 663 ==
LOC: JER 21:43 → JERBED 03-06 00:41 → UNDOADMOB 03-06 00:41 → JERBED 03-06 02:25 → J6S 03-06 03:26 → INTOOBSV 03-06 19:17 → OBSVTOIN 03-06 19:17
PROVIDERS: ADMIT Internal Medicine; ATTEND Internal Medicine
PROC: 30233N1 Transfusion of Nonautologous Red Blood Cells into Peripheral Vein, Percutaneous Approach (ICD-10-PCS; principal; 2018-03-06)
DX: D62 Acute posthemorrhagic anemia (principal); J45.909 Unspecified asthma, uncomplicated; E11.9 Type 2 diabetes mellitus without complications; K44.9 Diaphragmatic hernia without obstruction or gangrene; K21.9 Gastro-esophageal reflux disease without esophagitis; I10 Essential (primary) hypertension; F41.8 Other specified anxiety disorders; N93.9 Abnormal uterine and vaginal bleeding, unspecified; K76.0 Fatty (change of) liver, not elsewhere classified; R06.02 Shortness of breath; R31.29 Other microscopic hematuria; D50.9 Iron deficiency anemia, unspecified; R42 Dizziness and giddiness; G47.30 Sleep apnea, unspecified; N92.1 Excessive and frequent menstruation with irregular cycle; G25.81 Restless legs syndrome; E66.01 Morbid (severe) obesity due to excess calories; Z68.43 Body mass index [BMI] 50.0-59.9, adult; N85.00 Endometrial hyperplasia, unspecified; E88.09 Other disorders of plasma-protein metabolism, not elsewhere classified; Z85.3 Personal history of malignant neoplasm of breast; Z86.718 Personal history of other venous thrombosis and embolism
CPT/HCPCS: 36415; 36430; 36511; 70450-TC; 71045-TC-FY; 80053; 82962; 83036; 83735; 83880; 84100; 84703; 85025; 85027; 85610; 85730; 86850; 86870; 86900; 86901; 86902; 86922; 93005; 93010; 93306-TC; 99284-25; G0378; P9038; P9058

== ENCOUNTER 2018-04-10 01:08 | Inpatient (IN) | payer OTHER ==
[2018-04-10] MEDS ORDERED: ACETAMINOPHEN 325 MG TABLET (FP) PO ONE (01:26)
--- NOTE | 2018-04-10 01:32 | PDOC ---
History of Present Illness <Ivette Mora - Last Filed: 04/10/18 06:22> - General History Source: Patient Exam Limitations: No Limitations - History of Present Illness Initial Comments: 04/10/18 01:26 CHIEF COMPLAINT: Lower back pain HISTORY OF PRESENT ILLNESS: This is a 42-year-old woman with past medical history of breath CA status post lumpectomy 2013 currently on tamoxifen, NIDDM, asthma presents emergency department for evaluation of lower back pain for the past 3 days. She denies any radiation of the pain, numbness or tingling to lower extremities, incontinence of bladder or bowel, difficulty starting a stream of urine, saddle anesthesia, foot drop or history of IV drug use. Pt has taken Pecocet 10/325 prior to arrival. Patient also with vaginal bleeding which she stated started approximately 2 months ago which lasted for 5 weeks. Her bleeding stopped for 1-2 weeks and then is currently restarted for the past week. Patient states she was seen by her primary doctor today and noted to have a hemoglobin of 7 in his office. Patient states she had a cervical biopsy done within the past 2 weeks which was negative. Patient with like to have hysterectomy given her history of breast cancer but is unable to find a doctor who will perform one. REVIEW OF SYSTEMS: GENERAL: Afebrile, denies any weakness RESPIRATORY: No cough, wheezing, or hemoptysis. CARDIAC: No chest pain or shortness of breath MUSCULOSKELETAL: Pain to generalized lower back. No point tenderness. SKIN : No erythema, no bruising, no deformity. GI/: Denies any abdominal pain, no urinary difficulty, incontinence or urinary retention. RECTAL: Denies any difficulty this A.m. NEUROLOGICAL: Denies any numbness or tingling. No neurosensory deficits. PHYSICAL EXAM: GENERAL: The patient is awake, alert, and fully oriented, in no acute distress. RESPIRATORY: Lungs clear bilaterally, no rhonchi wheezes or crackles CARDIAC: S1-S2 audible, no murmur rub or gallop MUSCULOSKELETAL: Pain to generalized lower back, nonradiating, no tingling or sensory deficit. Less than 2 second cap refill, +2 pedal pulses. No spinal point tenderness. Normal reflexive and no deficits to sensation or strength. GI/: Abdomen soft, nontender, nondistended. No rebound tenderness. No masses palpable. RECTAL: Deferred patient with no neurological findings SKIN: Warm, Dry, normal turgor, no erythema, no edema no bruising. <Jose Pitts - Last Filed: 04/10/18 19:29> - General Stated Complaint: BACK PAIN Time Seen by Provider: 04/10/18 01:17 Past History <Ivette Mora - Last Filed: 04/10/18 06:22> - Past Medical History Anemia: Yes (Iron deficiency) Asthma: Yes Cancer: Yes (breast LEFT) Cardiac Disorders: (DVTs) CVA: No COPD: No CHF: No DVT: Yes Dementia: No Diabetes: Yes GI Disorders: Yes (hiatal hernia, GERD) Disorders: Yes (microscopic hematuria) HTN: Yes Hypercholesterolemia: No Liver Disease: Yes (fatty liver) Psychiatric Problems: Yes (Depression, anxiety) Seizures: No Thyroid Disease: No - Surgical History Abdominal Surgery: No Appendectomy: No Cardiac Surgery: No Cholecystectomy: No Lung Surgery: No Neurologic Surgery: No Orthopedic Surgery: No - Reproductive History Cervical CA: No Dysfunctional Uterine Bleeding: No Ectopic : No Endometrial CA: No Polycystic Ovaries: No Tubal Ligation: No - Immunization History Immunization Up to Date: Yes - Suicide/Smoking/Psychosocial Hx Smoking Status: Yes Smoking History: Never smoked Have you smoked in the past 12 months: No Number of Cigarettes Smoked Daily: 5 If you are a former smoker, when did you quit?: 21 YRS Cigars Per Day: 0 'Breaking Loose' booklet given: 03/06/18 Hx Alcohol Use: No Drug/Substance Use Hx: No Substance Use Type: None Hx Substance Use Treatment: Yes (6 YEARS AGO) <Jose Pitts - Last Filed: 04/10/18 19:29> - Past Medical History Allergies/Adverse Reactions: Allergies Allergy/AdvReac Type Severity Reaction Status Date / Time No Known Drug Allergies Allergy Verified 02/19/18 11:05 Home Medications: Ambulatory Orders Albuterol Sulfate Inhaler - [Ventolin HFA Inhaler -] 2 inh PO Q4H 01/24/17 Bupropion HCl [Wellbutrin Sr] 3 tab PO TID 01/24/17 Fluticasone/Salmeterol [Advair Hfa 230-21 Mcg Inhaler] 230 inh IH BID 01/24/17 Gabapentin 400 mg PO TID 01/24/17 Pramipexole Dihydrochloride [Mirapex -] 0.25 mg PO TID 01/24/17 Tamoxifen Citrate 10 mg PO BID 01/24/17 Valsartan/Hydrochlorothiazide [Valsartan-Hctz 320-25 mg Tab] 1 each PO DAILY 01/30 metFORMIN HCL [Metformin HCl] 500 mg PO BID 01/24/17 Oxycodone HCl/Acetaminophen [Oxycodone-Acetaminophen 10-325] 1 each PO Q4H 10/27 Trauma Specific PMHX - Complaint Specific PMHX Back Injury: No Neck Injury: No <Jose Pitts - Last Filed: 04/10/18 19:29> *Physical Exam - Vital Signs Last Vital Signs Temp Pulse Resp BP Pulse Ox 98.0 F 97 H 22 H 130/77 97 04/10/18 02:40 04/10/18 02:40 04/10/18 02:40 04/10/18 02:40 04/10/18 02:40 <Ivette Mora - Last Filed: 04/10/18 06:22> - Physical Exam Female Pelvic Exam: positive: normal external exam, cervical os closed, normal adnexa, vaginal bleeding. negative: CMT, adnexal tenderness <Jose Pitts - Last Filed: 04/10/18 19:29> Moderate Sedation - Procedure Monitoring Vital Signs: Procedure Monitoring Vital Signs Temperature 98.0 F 04/10/18 02:40 Pulse Rate 97 H 04/10/18 02:40 Respiratory Rate 22 H 04/10/18 02:40 Blood Pressure 130/77 04/10/18 02:40 O2 Sat by Pulse Oximetry (%) 97 04/10/18 02:40 <Ivette Mora - Last Filed: 04/10/18 06:22> Heart Score/ECG Review - ECG Intrepretation Rhythm: Regular Rhythm - Boles Boles: Normal - P and OK Delta Wave(s) Present: No WPW: No - QRS Poor R Wave Progression: No Q Wave Present: No - ECG Impressions Normal ECG: Yes Non-specific ST Elevation: No Ischemic Changes: No Bradycardia: No Torsades maddy Pointes: No WPW: No <Ivette Mora Last Filed: 04/10/18 06:22> ED Treatment Course - LABORATORY CBC & Chemistry Diagram: 04/10/18 06:00 04/10/18 02:15 - ADDITIONAL ORDERS Additional order review: Laboratory Results 04/10/18 04/10/18 04/10/18 02:15 02:15 02:15 PT with INR 12.70 INR 1.08 Sodium 140 Potassium 4.2 Chloride 108 H Carbon Dioxide 24 Anion Gap 7 L BUN 11 Creatinine 0.8 Creat Clearance w eGFR > 60 Random Glucose 113 H Calcium 8.2 L Urine Color Urine Appearance Urine pH Ur Specific [place] Urine Protein Urine Glucose (UA) Urine Ketones Urine Blood Urine Nitrite Urine Bilirubin Urine Urobilinogen Ur Leukocyte Esterase Urine WBC (Auto) Urine RBC (Auto) Ur Epithelial Cells Urine Mucus Urine HCG, Qual Blood Type O POSITIVE Antibody Screen Positive 04/10/18 02:15 PT with INR INR Sodium Potassium Chloride Carbon Dioxide Anion Gap BUN Creatinine Creat Clearance w eGFR Random Glucose Calcium Urine Color Jamila Urine Appearance Cloudy Urine pH 5.0 Ur Specific [place] 1.035 Urine Protein 2+ H Urine Glucose (UA) Negative Urine Ketones Negative Urine Blood 3+ H Urine Nitrite Negative Urine Bilirubin Negative Urine Urobilinogen Negative Ur Leukocyte Esterase 1+ H Urine WBC (Auto) 45 Urine RBC (Auto) 3986 Ur Epithelial Cells Rare Urine Mucus Rare Urine HCG, Qual Negative Blood Type Antibody Screen 04/10/18 02:15 RBC 3.54 L MCV 68.1 L MCHC 32.7 RDW 25.5 H MPV 9.4 Neutrophils % 81.3 D Lymphocytes % 12.2 D Monocytes % 3.6 L Eosinophils % 2.3 Basophils % 0.6 - RADIOLOGY Radiology Studies Ordered: Category Date Time Status CHEST X-RAY PORTABLE* [RAD] Stat Radiology 04/10/18 04:15 Ordered - Medications Given in the ED: ED Medications Discontinued Medications Generic Name Dose Route Start Last Admin Trade Name Freq PRN Reason Stop Dose Admin Acetaminophen 650 mg 04/10/18 01:26 04/10/18 02:27 Tylenol - PO 04/10/18 01:27 650 mg ONCE ONE Administration <Ivette Mora - Last Filed: 04/10/18 06:22> - LABORATORY CBC & Chemistry Diagram: 04/10/18 06:00 04/10/18 06:00 <Jose Pitts - Last Filed: 04/10/18 19:29> Medical Decision Making - Medical Decision Making 04/10/18 01:26 A/P: 42-year-old woman with 3 days of acute on chronic lower back pain No bony spinal tenderness noted No paraspinous muscle spasms presents No CVA tenderness Skin is normal color without signs of infection noted Urinalysis and urine testing Tylenol 650 mg as patient has a 30 taken Percocet 10/ prior to arrival 04/10/18 04:[address] Moon who will consult in the morning. Laboratory testing shows a hemoglobin of 7.9 down from 8.7 on 03/08. Patient is currently soaking 6 pads per hour. Patient will need admission for continued evaluation of her vaginal bleeding. I will contact the hospital service for admission. 04/10/18 05:[address] Cheema was refusing MedSurg admission at this time. Dr. Cheema states he will accept the patient after TREER has consult on the patient if admission is warranted. I'll sign the patient out to the morning team for continued evaluation and follow-up. 04/10/18 06:42 Was called to the bedside as patient had a systolic blood pressure in the 80s. Patient received oxycodone approximately one hour prior to low blood pressure. We'll give the patient 1 L normal saline. Patient with a decrease in hemoglobin from 7.97.3 after 4 hours. As patient is using 6 pads soaked per hour I will give the patient 1 unit of packed red blood cells at this time. 04/10/18 07:07 Pt signed out to FRANCES Hamilton. <Jose Pitts - Last Filed: 04/10/18 19:29> *DC/Admit/Observation/Transfer <Ivette Mora - Last Filed: 04/10/18 06:22> <Jose Pitts - Last Filed: 04/10/18 19:29> Diagnosis at time of Disposition: Vaginal bleeding Anemia Qualifiers: Anemia type: iron deficiency Iron deficiency anemia type: chronic blood loss Qualified Code(s): D50.0 - Iron deficiency anemia secondary to blood loss ( chronic) - Discharge Dispostion Condition at time of disposition: Stable
[2018-04-10] MEDS ORDERED: ACETAMINOPHEN 325 MG TABLET (FP) ONE (02:10)
[2018-04-10 02:34] LABS: URINE APPEARANCE CLOUDY; URINE BILIRUBIN NEGATIVE (<2.0 mg/dL); URINE COLOR AMBER; URINE GLUCOSE (UA) NEGATIVE (NEGATIVE); URINE KETONE NEGATIVE (NEGATIVE); URINE LEUK ESTERASE 1+ (NEGATIVE); URINE NITRITE NEGATIVE (NEGATIVE); URINE PROTEIN 2+ (NEGATIVE); URINE UROBILINOGEN NEGATIVE mg/dL (0.2-1.0)
[2018-04-10 02:35] LABS: HCG,QUALITATIVE URINE Negative
[2018-04-10 02:38] LABS: EPI CELLS RARE /HPF (FEW); URINE MUCUS RARE
[2018-04-10 02:46] LABS: INR 1.08 (0.83-1.09); PROTHROMBIN TIME (PATIENT) 12.7 SEC (9.7-13.0)
[2018-04-10 03:13] LABS: ANION GAP 7 MMOL/L (8-16); BLOOD UREA NITROGEN 11 mg/dL (7-18); CALCIUM 8.2 mg/dL (8.5-10.1); CHLORIDE 108 mmol/L (98-107); CO2 24 mmol/L (21-32); CREATININE 0.8 mg/dL (0.55-1.3); GLUCOSE,RANDOM 113 mg/dL (74-106); POTASSIUM 4.2 mmol/L (3.5-5.1); SODIUM 140 mmol/L (136-145)
[2018-04-10 03:14] LABS: BASO % 0.6 % (0-2.0); EOS % 2.3 % (0-4.5); HEMATOCRIT 24.1 % (32.4-45.2); HEMOGLOBIN 7.9 GM/dL (10.7-15.3); LYMPH % 12.2 % (8-40); MCH 22.3 pg (25.7-33.7); MCHC 32.7 g/dl (32.0-36.0); MEAN CELL VOLUME 68.1 fl (80-96); MEAN PLT VOLUME 9.4 fl (7.5-11.1); MONO % 3.6 % (3.8-10.2); NEUT % 81.3 % (42.8-82.8); PLATELET COUNT 189 K/MM3 (134-434); RBC 3.54 M/mm3 (3.60-5.2); RDW 25.5 % (11.6-15.6)
[2018-04-10 03:44] LABS: ANISOCYTOSIS 2+; MACROCYTOSIS 0; PLATELET ESTIMATE NORMAL
[2018-04-10] MEDS ORDERED: oxyCODONE HCL 5 MG TABLET PO ONE (05:10)
[2018-04-10] MEDS ORDERED: oxyCODONE HCL 5 MG TABLET ONE ×2 (05:14→11:25)
[2018-04-10 06:15] LABS: EOS % 2.3 % (0-4.5); HEMATOCRIT 22.7 % (32.4-45.2); HEMOGLOBIN 7.3 GM/dL (10.7-15.3); LYMPH % 16.4 % (8-40); MCH 21.9 pg (25.7-33.7); MEAN CELL VOLUME 68.3 fl (80-96); MEAN PLT VOLUME 9.2 fl (7.5-11.1); MONO % 4.5 % (3.8-10.2); NEUT % 75.8 % (42.8-82.8); PLATELET COUNT 183 K/MM3 (134-434); RBC 3.32 M/mm3 (3.60-5.2); RDW 25.4 % (11.6-15.6); RETICULOCYTES 4.05 % (0.5-1.5); WHITE BLOOD COUNT 10.3 K/mm3 (4.0-10.0)
[2018-04-10 06:38] LABS: ANION GAP 6 MMOL/L (8-16); BLOOD UREA NITROGEN 10 mg/dL (7-18); CALCIUM 7.8 mg/dL (8.5-10.1); CHLORIDE 108 mmol/L (98-107); CO2 26 mmol/L (21-32); CREATININE 0.7 mg/dL (0.55-1.3); GLUCOSE,RANDOM 111 mg/dL (74-106); POTASSIUM 4.1 mmol/L (3.5-5.1); SODIUM 140 mmol/L (136-145)
[2018-04-10] MEDS ORDERED: SODIUM CHLORIDE 1,000 ML IV STA (06:43)
--- NOTE | 2018-04-10 08:03 | PDOC ---
*Physical Exam - Vital Signs Last Vital Signs Temp Pulse Resp BP Pulse Ox 98.0 F 82 20 83/60 L 98 04/10/18 06:15 04/10/18 06:15 04/10/18 06:15 04/10/18 06:15 04/10/18 06:15 - Physical Exam Comments: 04/10/18 08:26 I resumed care of this 42-year-old female present with complaint of 2 months history of vaginal bleeding present with lower back pains and weakness. Patient H&H of 10/04 on presentation. Patient reported feeling weak. Patient reported for blood transfusion. One unit RBCs ordered for transfusion. MINING TEACHER consult obtained and will see the patient this morning. Patient to be admitted to inpatient for observation. General Appearance: Yes: Nourished, Appropriately Dressed. No: Apparent Distress HEENT: positive: Normal ENT Inspection Neck: positive: Supple Respiratory/Chest: positive: Lungs Clear. negative: Respiratory Distress, Accessory Muscle Use Cardiovascular: positive: Regular Rhythm, Regular Rate Gastrointestinal/Abdominal: positive: Flat, Soft. negative: Organomegaly Musculoskeletal: positive: Normal Inspection Extremity: positive: Normal Inspection Neurologic: positive: Fully Oriented, Alert, Normal Mood/Affect <Edward Hamilton - Last Filed: 04/10/18 10:08> - Vital Signs Last Vital Signs Temp Pulse Resp BP Pulse Ox 98.4 F 80 20 145/56 L 96 04/11/18 05:00 04/11/18 05:00 04/11/18 05:00 04/11/18 05:00 04/11/18 01:00 <Meng Rosenthal - Last Filed: 04/11/18 10:07> ED Treatment Course - LABORATORY CBC & Chemistry Diagram: 04/10/18 06:00 04/10/18 06:00 - ADDITIONAL ORDERS Additional order review: Laboratory Results 04/10/18 04/10/18 04/10/18 06:00 02:15 02:15 PT with INR 12.70 INR 1.08 Sodium 140 Potassium 4.1 Chloride 108 H Carbon Dioxide 26 Anion Gap 6 L BUN 10 Creatinine 0.7 Creat Clearance w eGFR > 60 Random Glucose 111 H Calcium 7.8 L Magnesium 2.0 Urine Color Urine Appearance Urine pH Ur Specific [place] Urine Protein Urine Glucose (UA) Urine Ketones Urine Blood Urine Nitrite Urine Bilirubin Urine Urobilinogen Ur Leukocyte Esterase Urine WBC (Auto) Urine RBC (Auto) Ur Epithelial Cells Urine Mucus Urine HCG, Qual Blood Type O POSITIVE Antibody Screen Positive Crossmatch See Detail 04/10/18 04/10/18 02:15 02:15 PT with INR INR Sodium 140 Potassium 4.2 Chloride 108 H Carbon Dioxide 24 Anion Gap 7 L BUN 11 Creatinine 0.8 Creat Clearance w eGFR > 60 Random Glucose 113 H Calcium 8.2 L Magnesium Urine Color Jamila Urine Appearance Cloudy Urine pH 5.0 Ur Specific [place] 1.035 Urine Protein 2+ H Urine Glucose (UA) Negative Urine Ketones Negative Urine Blood 3+ H Urine Nitrite Negative Urine Bilirubin Negative Urine Urobilinogen Negative Ur Leukocyte Esterase 1+ H Urine WBC (Auto) 45 Urine RBC (Auto) 3986 Ur Epithelial Cells Rare Urine Mucus Rare Urine HCG, Qual Negative Blood Type Antibody Screen Crossmatch 04/10/18 04/10/18 06:00 02:15 RBC 3.32 L 3.54 L MCV 68.3 L 68.1 L MCHC 32.0 32.7 RDW 25.4 H 25.5 H MPV 9.2 9.4 Neutrophils % 75.8 81.3 D Lymphocytes % 16.4 D 12.2 D Monocytes % 4.5 3.6 L Eosinophils % 2.3 2.3 Basophils % 1.0 0.6 - Medications Given in the ED: ED Medications Discontinued Medications Generic Name Dose Route Start Last Admin Trade Name Aracelis PRN Reason Stop Dose Admin Acetaminophen 650 mg 04/10/18 01:26 04/10/18 02:27 Tylenol - PO 04/10/18 01:27 650 mg ONCE ONE Administration Sodium Chloride 1,000 mls @ 1,000 mls/hr 04/10/18 06:43 04/10/18 06:44 Normal Saline - IV 04/10/18 07:42 1,000 mls/hr ASDIR STA Administration Oxycodone HCl 5 mg 04/10/18 05:10 04/10/18 05:17 Roxicodone - PO 04/10/18 05:11 5 mg ONCE ONE Administration <Edward Hamilton - Last Filed: 04/10/18 10:08> - LABORATORY CBC & Chemistry Diagram: 04/11/18 05:45 04/11/18 05:45 - ADDITIONAL ORDERS Additional order review: 04/10/18 04/10/18 06:00 02:15 RBC 3.32 L 3.54 L MCV 68.3 L 68.1 L MCHC 32.0 32.7 RDW 25.4 H 25.5 H MPV 9.2 9.4 Neutrophils % 75.8 81.3 D Lymphocytes % 16.4 D 12.2 D Monocytes % 4.5 3.6 L Eosinophils % 2.3 2.3 Basophils % 1.0 0.6 - Medications Given in the ED: ED Medications Discontinued Medications Generic Name Dose Route Start Last Admin Trade Name Aracelis PRN Reason Stop Dose Admin Acetaminophen 650 mg 04/10/18 01:26 04/10/18 02:27 Tylenol - PO 04/10/18 01:27 650 mg ONCE ONE Administration Baclofen 10 mg 04/10/18 09:38 04/10/18 11:00 Lioresal - PO 04/10/18 09:39 10 mg ONCE ONE Administration Sodium Chloride 1,000 mls @ 1,000 mls/hr 04/10/18 06:43 04/10/18 06:44 Normal Saline - IV 04/10/18 07:42 1,000 mls/hr ASDIR STA Administration Metformin HCl 500 mg 04/10/18 10:00 04/10/18 18:33 Glucophage - PO Not Given BIDWM SHIRLEY Oxycodone HCl 5 mg 04/10/18 05:10 04/10/18 05:17 Roxicodone - PO 04/10/18 05:11 5 mg ONCE ONE Administration <Meng Rosenthal - Last Filed: 04/11/18 10:07> Medical Decision Making - Medical Decision Making 04/10/18 08:28 I resumed care of this 42-year-old female present with complaint of 2 months history of vaginal bleeding present with lower back pains and weakness. Patient H&H of 7.9/22 on presentation. Patient reported feeling weak. Patient reported for blood transfusion.Repeat the H&H is 7. 3/20. Patient became hypotensive of 83/60 blood pressure during ED visit. Patient has taken Percocet prior to ED presented in my be the course of hypertension.One unit RBCs ordered for transfusion. MINING TEACHER consult obtained and will see the patient this morning. Patient to be admitted to inpatient for observation.Repeat blood pressures is 136/62. Patient given 1 L IV fluid. Patient is still waiting for first blood transfusion to be done. I will add a second unit to make it total of 2 pRBC transfusion. 04/10/18 09:27 Patient admitted to medicine under Dr. Rivera and case discussed with Dr. Rivera who agrees with the admission for observation. Patient to be seen by Dr. Moon this morning <Edward Hamilton - Last Filed: 04/10/18 10:08> - Medical Decision Making The patient was seen and evaluated in conjunction with FRANCES Hamilton under my direct supervision, ancillary studies were reviewed. I agree with the plan as outlined by FRANCES Hamilton . . <Meng Rosenthal - Last Filed: 04/11/18 10:07> *DC/Admit/Observation/Transfer - Discharge Dispostion Decision to Admit order: Yes Decision to Admit order Date/Time: 04/10/18 08:40 Admit for blood transfusion and observation for vaginal bleeding. <Edward Hamilton - Last Filed: 04/10/18 10:08> <Meng Rosenthal - Last Filed: 04/11/18 10:07> Diagnosis at time of Disposition: Vaginal bleeding Anemia Qualifiers: Anemia type: iron deficiency Iron deficiency anemia type: chronic blood loss Qualified Code(s): D50.0 - Iron deficiency anemia secondary to blood loss ( chronic) - Discharge Dispostion Condition at time of disposition: Stable
[2018-04-10] MEDS ORDERED: BACLOFEN 10 MG TABLET (FP) PO ONE (09:38)
--- NOTE | 2018-04-10 09:42 | HP ---
Admitting History and Physical - Primary Care Physician PCP: Tyrone Rodriguez - Admission Chief Complaint: My back is spasming History of Present Illness: Ms Fierro is a 42 year old female who presents to the hospital with excessive vaginal bleeding and back spasms. Neither problem is new and she has presented in the past with exacerbations of these problems. She states that approximately 3 days ago she began to have vaginal bleeding. She says that it was constant and would not stop. She says it is similar to her previous admissions. With this she began to have back spasms as well. She says it is a tightness in her lower back, /10, non-radiating, and worse with movement. She denies fevers, chills, lightheadedness, dizziness, passing out, chest pain or pressure, shortness of breath, nausea, vomiting, diarrhea, constipation, difficulty or pain on urination, or swelling. She is still having severe spasms on exam. 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 On a/c with coumadin since that time) Pulmonary: Yes: Asthma, Pneumonia Gastrointestinal: Yes: GERD, Hiatal Hernia Hepatobiliary: Yes: Other (Fatty Liver) ...LMP: 10/24/17 Heme/Onc: Yes: Anemia Psych: Yes: Anxiety, Depression Musculoskeletal: Yes: Chronic low back pain, Other (states chronic myalgias and dx of fibromyalgia) Rheumatology: Yes: Fibromyalgia Endocrine: Yes: Diabetes Mellitus - Past Surgical History Past Surgical History: Yes: Breast Biopsy, - Smoking History Smoking history: Never smoked Have you smoked in the past 12 months: No Aproximately how many cigarettes per day: 5 If you are a former smoker, when did you quit?: 21 YRS - Alcohol/Substance Use Hx Alcohol Use: No History of Substance Use: reports: Cocaine Date of Last Use: 03/16/05 - Social History ADL: Independent Occupation: currently not working History of Recent Travel: No Home Medications - Allergies Allergies/Adverse Reactions: Allergies Allergy/AdvReac Type Severity Reaction Status Date / Time No Known Drug Allergies Allergy Verified 02/19/18 11:05 - Home Medications Home Medications: Ambulatory Orders Albuterol Sulfate Inhaler - [Ventolin HFA Inhaler -] 2 inh PO Q4H 01/24/17 Bupropion HCl [Wellbutrin Sr] 3 tab PO TID 01/24/17 Fluticasone/Salmeterol [Advair Hfa 230-21 Mcg Inhaler] 230 inh IH BID 01/24/17 Gabapentin 400 mg PO TID 01/24/17 Pramipexole Dihydrochloride [Mirapex -] 0.25 mg PO TID 01/24/17 Tamoxifen Citrate 10 mg PO BID 01/24/17 Valsartan/Hydrochlorothiazide [Valsartan-Hctz 320-25 mg Tab] 1 each PO DAILY 01/30 metFORMIN HCL [Metformin HCl] 500 mg PO BID 01/24/17 Oxycodone HCl/Acetaminophen [Oxycodone-Acetaminophen 10-325] 1 each PO Q4H 10/27 Family Disease History - Family Disease History Family Disease History: CA: Grandparent (breast), Other: Sister (anemia) Review of Systems Findings/Remarks: Full review of systems obtained, as per HPI and otherwise negative Physical Examination Vital Signs: Vital Signs Temperature 36.6 C 04/10/18 08:05 Pulse Rate 84 04/10/18 09:13 Respiratory Rate 20 04/10/18 09:13 Blood Pressure 151/76 04/10/18 09:13 O2 Sat by Pulse Oximetry (%) 98 04/10/18 09:13 Constitutional: Yes: Moderate Distress, Obese Eyes: Yes: Conjunctiva Clear, EOM Intact, PERRL HENT: Yes: Atraumatic, Normocephalic Cardiovascular: Yes: Regular Rate and Rhythm. No: Gallop, Murmur, Rub Respiratory: Yes: Regular, CTA Bilaterally. No: Rales, Rhonchi, Wheezes Gastrointestinal: Yes: Normal Bowel Sounds, Soft. No: Distention, Tenderness Extremities: Yes: WNL Edema: No Labs: CBC, BMP 04/10/18 06:00 04/10/18 06:00 Imaging - Results Chest X-ray: Report Reviewed, Image Reviewed Problem List - Problems (1) Vaginal bleeding Assessment/Plan: -Dr Moon consulted -awaiting recommendations Code(s): N93.9 - ABNORMAL UTERINE AND VAGINAL BLEEDING, UNSPECIFIED (2) Acute blood loss anemia Assessment/Plan: -secondary to excessive vaginal bleeding -will transfuse 2 units -recheck cbc in am Code(s): D62 - ACUTE POSTHEMORRHAGIC ANEMIA (3) Hypertension Assessment/Plan: -continue home regimen -pain control Code(s): I10 - ESSENTIAL (PRIMARY) HYPERTENSION (4) Lower back pain Assessment/Plan: -will continue oxycodone, patient is on as outpatient -will add prn baclofen for spasm control Code(s): M54.5 - LOW BACK PAIN (5) Morbidly obese Assessment/Plan: -recommend outpatient weight loss and exercise program per Dr Rodriguez Code(s): E66.01 - MORBID (SEVERE) OBESITY DUE TO EXCESS CALORIES (6) Type 2 diabetes mellitus Assessment/Plan: -diabetic diet -continue metformin Code(s): E11.9 - TYPE 2 DIABETES MELLITUS WITHOUT COMPLICATIONS
[2018-04-10] MEDS ORDERED: PATIENT'S OWN MEDICATION (NON-FORMULARY) (Valsartan/Hydrochlorothiazide [Valsartan-Hctz 32 PO SCH (10:00)
[2018-04-10] MEDS ORDERED: metFORMIN HCL 500 MG TABLET (FP) PO SCH (10:00)
[2018-04-10] MEDS ORDERED: HYDROCHLOROTHIAZIDE 25 MG TABLET (FP) ONE (11:24)
[2018-04-10] MEDS ORDERED: metFORMIN HCL 500 MG TABLET (FP) ONE (11:25)
[2018-04-10] MEDS ORDERED: BACLOFEN 10 MG TABLET (FP) ONE (11:25)
[2018-04-10] MEDS: TAMOXIFEN CITRATE 10 MG TABLET PO SCH ×2 (11:30→22:23)
[2018-04-10] MEDS: VALSARTAN 160 MG TABLET (UD) PO SCH (11:30)
[2018-04-10] MEDS: HYDROCHLOROTHIAZIDE 25 MG TABLET (FP) PO SCH (12:30)
--- NOTE | 2018-04-10 12:52 | EKG ---
Test Reason : Blood Pressure : / mmHG Vent. Rate : 084 BPM Atrial Rate : 084 BPM P-R Int : 172 ms QRS Dur : 092 ms QT Int : 386 ms P-R-T Axes : 032 -01 051 degrees QTc Int : 456 ms NORMAL SINUS RHYTHM NORMAL ECG WHEN COMPARED WITH ECG OF 05-MAR-2018 23:12, NO SIGNIFICANT CHANGE WAS FOUND Confirmed by THERESA CARUSO MD ([id number]) on 04/10/2018 12:51:50 PM Referred By: Confirmed By:THERESA CARUSO MD
[2018-04-10] MEDS ORDERED: PRAMIPEXOLE DIHYDROCHLORIDE 0.25 MG TABLET PO SCH (14:00)
[2018-04-10] MEDS ORDERED: BUPROPION HCL PO SCH (14:00)
[2018-04-10] MEDS ORDERED: GABAPENTIN 400 MG CAPSULE (FP) PO SCH (14:00)
[2018-04-10 17:12] VITALS: BMI 54.8
[2018-04-10] MEDS: BUDESONIDE/FORMETEROL FUMARATE 80/4.5 mcg INHALER IH SCH ×2 (17:43→22:23)
[2018-04-10] MEDS: metFORMIN HCL 500 MG TABLET (FP) PO SCH (17:43)
[2018-04-10] MEDS: BACLOFEN 10 MG TABLET (FP) PO PRN (20:55)
[2018-04-10] MEDS: oxyCODONE HCL 5 MG TABLET PO PRN (20:56)
[2018-04-11] MEDS: metFORMIN HCL 500 MG TABLET (FP) PO SCH ×2 (06:04→16:59)
[2018-04-11 07:44] LABS: ANION GAP 7 MMOL/L (8-16); BLOOD UREA NITROGEN 9 mg/dL (7-18); CALCIUM 7.9 mg/dL (8.5-10.1); CHLORIDE 105 mmol/L (98-107); CO2 28 mmol/L (21-32); CREATININE 0.8 mg/dL (0.55-1.3); GLUCOSE,RANDOM 95 mg/dL (74-106); MAGNESIUM 1.9 mg/dL (1.8-2.4); PHOSPHOROUS 4.3 mg/dL (2.5-4.9); POTASSIUM 3.8 mmol/L (3.5-5.1); SODIUM 140 mmol/L (136-145)
[2018-04-11 08:16] LABS: HEMATOCRIT 25.3 % (32.4-45.2); HEMOGLOBIN 8.3 GM/dL (10.7-15.3); MCH 22.8 pg (25.7-33.7); MCHC 32.8 g/dl (32.0-36.0); MEAN CELL VOLUME 69.5 fl (80-96); MEAN PLT VOLUME 9.7 fl (7.5-11.1); PLATELET COUNT 156 K/MM3 (134-434); RBC 3.64 M/mm3 (3.60-5.2); RDW 24.1 % (11.6-15.6); WHITE BLOOD COUNT 9.8 K/mm3 (4.0-10.0)
[2018-04-11] MEDS: oxyCODONE HCL 5 MG TABLET PO PRN (08:23)
[2018-04-11] MEDS ORDERED: PT OWN MED DRAWER 7, Y5N ONE ×3 (10:37→21:20)
[2018-04-11] MEDS: BUDESONIDE/FORMETEROL FUMARATE 80/4.5 mcg INHALER IH SCH ×2 (10:38→21:33)
[2018-04-11] MEDS: TAMOXIFEN CITRATE 10 MG TABLET PO SCH ×2 (10:39→22:11)
[2018-04-11] MEDS: HYDROCHLOROTHIAZIDE 25 MG TABLET (FP) PO SCH (10:40)
[2018-04-11] MEDS: VALSARTAN 160 MG TABLET (UD) PO SCH (10:41)
--- NOTE | 2018-04-11 16:13 | PN ---
Progress Note, Physician Chief Complaint: Ms Fierro says she is still bleeding and it is a cause of major concern for her. Still having dizziness. No cp, sob, n/v. - Current Medication List Current Medications: Active Medications Acetaminophen (Tylenol -) 650 mg PO Q4H PRN PRN Reason: PAIN LEVEL 1-5 Baclofen (Lioresal -) 10 mg PO TID PRN PRN Reason: MUSCLE SPASMS Last Admin: 04/10/18 20:55 Dose: 10 mg Budesonide/Formoterol Fumarate (Symbicort 80/4.5mcg -) 2 puff IH BID [facility] Last Admin: 04/11/18 10:38 Dose: 2 puff Hydrochlorothiazide (Hctz -) 25 mg PO DAILY [facility] Medroxyprogesterone Acetate (Provera -) 10 mg PO BID [facility] Last Admin: 04/11/18 10:39 Dose: 10 mg [facility] Last Admin: 04/11/18 06:04 Dose: Not Given Oxycodone HCl (Roxicodone -) 10 mg PO Q4H PRN PRN Reason: PAIN LEVEL 6-10 Last Admin: 04/11/18 08:23 Dose: 10 mg Tamoxifen Citrate (Tamoxifen Citrate) 10 mg PO BID [facility] Last Admin: 04/11/18 10:39 Dose: 10 mg Valsartan (Diovan -) 320 mg PO DAILY [facility] - Objective Vital Signs: Vital Signs Temperature 36.6 C 04/11/18 13:30 Pulse Rate 84 04/11/18 13:30 Respiratory Rate 18 04/11/18 13:30 Blood Pressure 103/63 04/11/18 13:30 O2 Sat by Pulse Oximetry (%) 97 04/11/18 09:30 Constitutional: Yes: No Distress, Calm, Obese Cardiovascular: Yes: Regular Rate and Rhythm. No: Gallop, Murmur, Rub Respiratory: Yes: Regular, CTA Bilaterally. No: Rales, Rhonchi, Wheezes Gastrointestinal: Yes: Normal Bowel Sounds, Soft. No: Distention, Tenderness Extremities: Yes: WNL Edema: No Labs: CBC, BMP 04/11/18 05:45 04/11/18 05:45 INR, PTT INR 1.08 (0.83-1.09) 04/10/18 02:15 Problem List - Problems (1) Vaginal bleeding Code(s): N93.9 - ABNORMAL UTERINE AND VAGINAL BLEEDING, UNSPECIFIED (2) Acute blood loss anemia Code(s): D62 - ACUTE POSTHEMORRHAGIC ANEMIA (3) Hypertension Code(s): I10 - ESSENTIAL (PRIMARY) HYPERTENSION (4) Lower back pain Code(s): M54.5 - LOW BACK PAIN (5) Morbidly obese Code(s): E66.01 - MORBID (SEVERE) OBESITY DUE TO EXCESS CALORIES (6) Type 2 diabetes mellitus Code(s): E11.9 - TYPE 2 DIABETES MELLITUS WITHOUT COMPLICATIONS Assessment/Plan (1) Vaginal bleeding Assessment/Plan: -continuous -Dr Moon consulted and seeing -on progesterone -patient is aware of risks involved, including DVTs/PE -she says she accepts the risk because the bleeding is too debilitating Code(s): N93.9 - ABNORMAL UTERINE AND VAGINAL BLEEDING, UNSPECIFIED (2) Acute blood loss anemia Assessment/Plan: -increased, but not as expected secondary to continued blood loss -will recheck cbc tonight -transfuse as needed Code(s): D62 - ACUTE POSTHEMORRHAGIC ANEMIA (3) Hypertension Assessment/Plan: -continue home regimen -pain control Code(s): I10 - ESSENTIAL (PRIMARY) HYPERTENSION (4) Lower back pain Assessment/Plan: -controlled on oxycodone and baclofen Code(s): M54.5 - LOW BACK PAIN (5) Morbidly obese Assessment/Plan: -recommend outpatient weight loss and exercise program per Dr Rodriguez Code(s): E66.01 - MORBID (SEVERE) OBESITY DUE TO EXCESS CALORIES (6) Type 2 diabetes mellitus Assessment/Plan: -diabetic diet -continue metformin Code(s): E11.9 - TYPE 2 DIABETES MELLITUS WITHOUT COMPLICATIONS
[2018-04-11 17:32] LABS: HEMATOCRIT 26.6 % (32.4-45.2); HEMOGLOBIN 8.7 GM/dL (10.7-15.3); MCH 22.7 pg (25.7-33.7); MCHC 32.7 g/dl (32.0-36.0); MEAN CELL VOLUME 69.4 fl (80-96); MEAN PLT VOLUME 9.2 fl (7.5-11.1); PLATELET COUNT 167 K/MM3 (134-434); RBC 3.83 M/mm3 (3.60-5.2); RDW 23.7 % (11.6-15.6); WHITE BLOOD COUNT 11.9 K/mm3 (4.0-10.0)
[2018-04-11] MEDS ORDERED: ONDANSETRON 4 MG TABLET PO ONE (21:24)
[2018-04-12] MEDS: metFORMIN HCL 500 MG TABLET (FP) PO SCH ×3 (06:34→19:20)
[2018-04-12] MEDS: oxyCODONE HCL 5 MG TABLET PO PRN ×2 (06:37→10:41)
[2018-04-12 08:22] LABS: BASO % 0.7 % (0-2.0); EOS % 4.9 % (0-4.5); HEMATOCRIT 24.7 % (32.4-45.2); HEMOGLOBIN 8.2 GM/dL (10.7-15.3); MCH 23.1 pg (25.7-33.7); MCHC 33.4 g/dl (32.0-36.0); MEAN CELL VOLUME 69.2 fl (80-96); MONO % 5.6 % (3.8-10.2); NEUT % 72.8 % (42.8-82.8); RBC 3.57 M/mm3 (3.60-5.2); WHITE BLOOD COUNT 9.7 K/mm3 (4.0-10.0)
[2018-04-12 08:42] LABS: ANION GAP 7 MMOL/L (8-16); BLOOD UREA NITROGEN 11 mg/dL (7-18); CALCIUM 7.8 mg/dL (8.5-10.1); CHLORIDE 104 mmol/L (98-107); CO2 28 mmol/L (21-32); CREATININE 0.7 mg/dL (0.55-1.3); GLUCOSE,RANDOM 91 mg/dL (74-106); MAGNESIUM 1.9 mg/dL (1.8-2.4); SODIUM 139 mmol/L (136-145)
--- NOTE | 2018-04-12 09:05 | PN ---
Progress Note (short form) - Note Progress Note: rn obgyn follow up states bleeding has decreased significantly, no dizziness , no pain Last Vital Signs Temp Pulse Resp BP Pulse Ox 97.7 F 79 20 104/62 97 04/12/18 06:00 04/12/18 06:00 04/12/18 06:00 04/12/18 06:00 04/12/18 01:00 CBC, BMP 04/12/18 06:15 abdomen soft , non tender vagnia small dark blood on pad , no active vaginal bleeding noted impression sari improvment on vaginal bleeding cbc pending plan if cbc stable , can be d/c home on po provera 10 mg once a dayfor 10 days till see her atm technician at [facility]
[2018-04-12] MEDS ORDERED: PT OWN MED DRAWER 7, Y5N ONE ×3 (10:33→20:12)
[2018-04-12] MEDS: VALSARTAN 160 MG TABLET (UD) PO SCH (10:34)
[2018-04-12] MEDS: HYDROCHLOROTHIAZIDE 25 MG TABLET (FP) PO SCH (10:34)
[2018-04-12] MEDS: BUDESONIDE/FORMETEROL FUMARATE 80/4.5 mcg INHALER IH SCH ×2 (10:35→22:30)
[2018-04-12] MEDS: TAMOXIFEN CITRATE 10 MG TABLET PO SCH ×2 (10:37→22:33)
--- NOTE | 2018-04-12 11:29 | PN ---
Progress Note, Physician Chief Complaint: Pt lying in bed in no acute distress. she reports still having vaginal bleeding along w/ clots. C/o intermittent severe lbp w/ muscle spasms. also reports no bm for 7 days. Denies any chest pain, sob, n/v/d - Current Medication List Current Medications: Active Medications Acetaminophen (Tylenol -) 650 mg PO Q4H PRN PRN Reason: PAIN LEVEL 1-5 Baclofen (Lioresal -) 10 mg PO TID PRN PRN Reason: MUSCLE SPASMS Last Admin: 04/10/18 20:55 Dose: 10 mg Budesonide/Formoterol Fumarate (Symbicort 80/4.5mcg -) 2 puff IH BID [facility] Last Admin: 04/12/18 10:35 Dose: 2 puff Hydrochlorothiazide (Hctz -) 25 mg PO DAILY [facility] Last Admin: 04/12/18 10:34 Dose: 25 mg Medroxyprogesterone Acetate (Provera -) 10 mg PO BID [facility] Last Admin: 04/12/18 10:34 Dose: 10 mg [facility] Last Admin: 04/12/18 06:34 Dose: Not Given Oxycodone HCl (Roxicodone -) 10 mg PO Q4H PRN PRN Reason: PAIN LEVEL 6-10 Last Admin: 04/12/18 10:41 Dose: 10 mg Tamoxifen Citrate (Tamoxifen Citrate) 10 mg PO BID [facility] Last Admin: 04/12/18 10:37 Dose: 10 mg Valsartan (Diovan -) 320 mg PO DAILY [facility] Last Admin: 04/12/18 10:34 Dose: 320 mg - Objective Vital Signs: Vital Signs Temperature 97.9 F 04/12/18 10:26 Pulse Rate 88 04/12/18 10:26 Respiratory Rate 20 04/12/18 10:26 Blood Pressure 131/73 04/12/18 10:26 O2 Sat by Pulse Oximetry (%) 97 04/12/18 01:00 Constitutional: Yes: Well Nourished, No Distress, Calm, Obese Cardiovascular: Yes: Regular Rate and Rhythm Respiratory: Yes: WNL, Regular, CTA Bilaterally. No: Accessory Muscle Use, SOB , Tachypnea, Wheezes Gastrointestinal: Yes: WNL, Normal Bowel Sounds, Soft, Abdomen, Obese. 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 Code(s): N93.9 - ABNORMAL UTERINE AND VAGINAL BLEEDING, UNSPECIFIED (2) Acute blood loss anemia Assessment/Plan: mild drop, pt asymptomatic transfuse if hg<8 monitor cbc Code(s): D62 - ACUTE POSTHEMORRHAGIC ANEMIA (3) Hypertension Assessment/Plan: controlled continue home regimen Code(s): I10 - ESSENTIAL (PRIMARY) HYPERTENSION (4) Lower back pain Assessment/Plan: pt c/o increased pain today, describes it as intermittent severe sharp pain w/ spasms of lower back continue oxycodone will make baclofen scheduled warm pack as needed ambulate w/ assist as tolerated Code(s): M54.5 - LOW BACK PAIN (5) Morbidly obese Assessment/Plan: recommend outpatient weight loss and exercise program per Dr Rodriguez Code(s): E66.01 - MORBID (SEVERE) OBESITY DUE TO EXCESS CALORIES (6) Type 2 diabetes mellitus Assessment/Plan: diabetic diet continue metformin Code(s): E11.9 - TYPE 2 DIABETES MELLITUS WITHOUT COMPLICATIONS (7) Constipation Assessment/Plan: mag citrate/miralax ordered monitor Code(s): K59.00 - CONSTIPATION, UNSPECIFIED Qualifiers: Constipation type: slow transit constipation Qualified Code(s): K59.01 - Slow transit constipation Dispo: Home, anticipate discharge in the next 24 hours if no clinical changes
[2018-04-12] MEDS: BACLOFEN 10 MG TABLET (FP) PO PRN (11:30)
[2018-04-12] MEDS ORDERED: MAGNESIUM CITRATE 300 ML BOTTLE PO ONE (11:39)
[2018-04-12 12:37] LABS: BASO % 0.9 % (0-2.0); EOS % 4.5 % (0-4.5); HEMATOCRIT 26.9 % (32.4-45.2); HEMOGLOBIN 8.6 GM/dL (10.7-15.3); LYMPH % 14.9 % (8-40); MEAN CELL VOLUME 68.8 fl (80-96); MEAN PLT VOLUME 9.1 fl (7.5-11.1); NEUT % 74.7 % (42.8-82.8); PLATELET COUNT 198 K/MM3 (134-434); RDW 24.9 % (11.6-15.6); WHITE BLOOD COUNT 11.3 K/mm3 (4.0-10.0)
[2018-04-12 12:47] LABS: MEAN PLT VOLUME 9.2 fl (7.5-11.1); PLATELET COUNT 163 K/MM3 (134-434)
--- NOTE | 2018-04-12 13:09 | CONS ---
DATE OF CONSULTATION: 04/10/2018 REASON FOR CONSULTATION: Vaginal bleeding, anemia. Patient is a 42-year-old female with past medical history of hypertension, deep vein thrombosis, and asthma, anxiety, depression, and anemia, fibromyalgia, and diabetes, with also a history of breast cancer with a long history of vaginal bleeding which has been worked up previously with D and C and pathology was benign. She is presently on tamoxifen complaining of vaginal bleeding. She was presented to the ER with hemoglobin of 7.9 and hematocrit of 24 and complaining of dizziness and weakness. MEDICATIONS: Include albuterol, Wellbutrin, Advair, gabapentin, Mirapex, tamoxifen, and valsartan/hydrochlorothiazide, metformin, and oxycodone. PHYSICAL EXAMINATION: Vital Signs: Stable. Patient is morbidly obese. Pulse was 84, blood pressure 151/76. Abdomen: Soft and nontender. No masses were palpable. Pelvic: Exam shows external genitalia to be normal. Vagina had moderate amount of dark vaginal bleeding. Cervical os was closed. No gross lesion. Uterus was not palpable because of the obesity. Adnexa no masses were palpable. IMPRESSION: Menometrorrhagia secondary to most likely obesity and ablation and also secondary multiple medications that she is taking preventing ovulation and also may be related to tamoxifen. Patient states that she has an appointment at [facility] on April 27 for followup and evaluation of the irregular vaginal bleeding by her SOLUTIONS SPECIALIST, and at present time, we will start her on Provera 10 mg twice a day for 7 days until the bleeding stops and then blood transfusion for now, and then we will reevaluate her in 24-48 hours for any heavy vaginal bleeding. The patient was encouraged to follow up with her SOLUTIONS SPECIALIST KAMAR, and she is going to make an appointment. SERGO GREENFIELD M.D. [id number]
[2018-04-12] MEDS: BACLOFEN 10 MG TABLET (FP) PO SCH ×2 (14:39→22:29)
[2018-04-12] MEDS ORDERED: METOCLOPRAMIDE HCL INJECTION 10 MG/2 ML VIAL IVPUSH ONE (17:15)
[2018-04-12] MEDS: POLYETHYLENE GLYCOL 3350 119 GM BTL PO SCH (19:18)
[2018-04-12] MEDS ORDERED: SENNOSIDES/DOCUSATE COMBO (SENNA PLUS) TABLET (UD) PO SCH (22:00)
[2018-04-12] MEDS ORDERED: GLYCERIN 1 RECTAL SUPPOSITORY, ADULT PR PRN (22:18)
[2018-04-13] MEDS: oxyCODONE HCL 5 MG TABLET PO PRN ×4 (05:06→22:09)
[2018-04-13] MEDS: BACLOFEN 10 MG TABLET (FP) PO SCH ×3 (05:08→23:49)
[2018-04-13] MEDS ORDERED: BISACODYL 10 MG SUPP.RECT PR ONE (06:00)
[2018-04-13] MEDS: metFORMIN HCL 500 MG TABLET (FP) PO SCH ×2 (06:16→17:01)
[2018-04-13 07:48] LABS: BASO % 0.5 % (0-2.0); EOS % 3.8 % (0-4.5); HEMATOCRIT 25.3 % (32.4-45.2); HEMOGLOBIN 8.1 GM/dL (10.7-15.3); LYMPH % 12.1 % (8-40); MCH 22.4 pg (25.7-33.7); MCHC 32.1 g/dl (32.0-36.0); MEAN CELL VOLUME 69.8 fl (80-96); MEAN PLT VOLUME 9.1 fl (7.5-11.1); MONO % 4.9 % (3.8-10.2); NEUT % 78.7 % (42.8-82.8); PLATELET COUNT 161 K/MM3 (134-434); RBC 3.63 M/mm3 (3.60-5.2); WHITE BLOOD COUNT 10.9 K/mm3 (4.0-10.0)
[2018-04-13] MEDS ORDERED: PT OWN MED DRAWER 7, Y5N ONE (07:54)
[2018-04-13] MEDS: ACETAMINOPHEN 325 MG TABLET (FP) PO PRN ×2 (07:59→13:00)
[2018-04-13 09:29] LABS: ANISOCYTOSIS 2+; MACROCYTOSIS 0; PLATELET ESTIMATE NORMAL; TEAR DROP CELLS 1+
[2018-04-13] MEDS: VALSARTAN 160 MG TABLET (UD) PO SCH (10:14)
[2018-04-13] MEDS: HYDROCHLOROTHIAZIDE 25 MG TABLET (FP) PO SCH (10:14)
[2018-04-13] MEDS: TAMOXIFEN CITRATE 10 MG TABLET PO SCH ×2 (10:17→22:09)
[2018-04-13] MEDS: BUDESONIDE/FORMETEROL FUMARATE 80/4.5 mcg INHALER IH SCH ×2 (10:17→22:09)
--- NOTE | 2018-04-13 10:20 | PN ---
Progress Note, Physician Chief Complaint: Pt lying in bed in no acute distress. she reports still having vaginal bleeding. C/o worsening intermittent severe lbp w/ muscle spasms. Denies any chest pain, sob, n/v/d - Current Medication List Current Medications: Active Medications Acetaminophen (Tylenol -) 650 mg PO Q4H PRN PRN Reason: PAIN LEVEL 1-5 Last Admin: 04/13/18 07:59 Dose: 650 mg Baclofen (Lioresal -) 10 mg PO TID [facility] Baclofen (Lioresal -) 5 mg PO ONCE ONE Stop: 04/13/18 10:18 Budesonide/Formoterol Fumarate (Symbicort 80/4.5mcg -) 2 puff IH BID [facility] Last Admin: 04/12/18 22:30 Dose: 2 puff Glycerin (Glycerin Suppository Adult -) 1 each [place] DAILY PRN PRN Reason: CONSTIPATION Hydrochlorothiazide (Hctz -) 25 mg PO DAILY [facility] Last Admin: 04/12/18 10:34 Dose: 25 mg Medroxyprogesterone Acetate (Provera -) 10 mg PO BID [facility] Last Admin: 04/12/18 22:30 Dose: 10 mg Metformin HCl (Glucophage -) 500 mg PO BIDAC [facility] Last Admin: 04/13/18 06:16 Dose: 500 mg Oxycodone HCl (Roxicodone -) 10 mg PO Q4H PRN PRN Reason: PAIN LEVEL 6-10 Last Admin: 04/13/18 05:06 Dose: 10 mg Polyethylene Glycol (Miralax (For Daily Use) -) 17 gm PO DAILY [facility] Last Admin: 04/12/18 19:18 Dose: Not Given Senna/Docusate Sodium (Pericolace -) 2 tablet PO HS [facility] Stop: 04/13/18 17:11 Last Admin: 04/12/18 22:29 Dose: 2 tablet Tamoxifen Citrate (Tamoxifen Citrate) 10 mg PO BID [facility] Last Admin: 04/12/18 22:33 Dose: 10 mg Valsartan (Diovan -) 320 mg PO DAILY [facility] Last Admin: 04/12/18 10:34 Dose: 320 mg - Objective Vital Signs: Vital Signs Temperature 98.0 F 04/13/18 06:00 Pulse Rate 76 04/13/18 06:00 Respiratory Rate 20 04/13/18 06:00 Blood Pressure 133/53 L 01/29/19 06:00 O2 Sat by Pulse Oximetry (%) 97 04/13/18 02:00 Constitutional: Yes: Well Nourished, No Distress, Anxious, Obese Cardiovascular: Yes: Regular Rate and Rhythm Respiratory: Yes: WNL, Regular, CTA Bilaterally. No: Accessory Muscle Use, SOB , Tachypnea, Wheezes Gastrointestinal: Yes: WNL, Normal Bowel Sounds, Soft, Abdomen, Obese. No: Distention, Tenderness Genitourinary: Yes: Vaginal Bleeding Musculoskeletal: Yes: Back Pain (+ttp, lower back) Extremities: Yes: WNL Edema: No Neurological: Yes: WNL, Alert, Oriented Psychiatric: Yes: WNL, Alert, Oriented Labs: CBC, BMP 04/13/18 07:00 04/12/18 06:15 INR, PTT INR 1.08 (0.83-1.09) 04/10/18 02:15 Assessment/Plan (1) Vaginal bleeding Assessment/Plan: improved since admission but still having bleeding continue progesterone [employer] following Code(s): N93.9 - ABNORMAL UTERINE AND VAGINAL BLEEDING, UNSPECIFIED (2) Acute blood loss anemia Assessment/Plan: mild drop, pt hypotensive today, however asymptomatic transfuse if hg<8 monitor cbc Code(s): D62 - ACUTE POSTHEMORRHAGIC ANEMIA (3) Hypertension Assessment/Plan: controlled continue home regimen Code(s): I10 - ESSENTIAL (PRIMARY) HYPERTENSION (4) Lower back pain Assessment/Plan: unrelieved w/ current regimen, reports its worse continue oxycodone, increase baclofen warm pack as needed ambulate w/ assist as tolerated suspect back spasm/pain exacerbated by uterine bleeding however will r/o any other etiology- xray lumbar/sacrum ordered Code(s): M54.5 - LOW BACK PAIN (5) Morbidly obese Assessment/Plan: recommend outpatient weight loss and exercise program per PCP Code(s): E66.01 - MORBID (SEVERE) OBESITY DUE TO EXCESS CALORIES (6) Type 2 diabetes mellitus Assessment/Plan: diabetic diet continue metformin Code(s): E11.9 - TYPE 2 DIABETES MELLITUS WITHOUT COMPLICATIONS (7) Constipation Assessment/Plan: resolved Code(s): K59.00 - CONSTIPATION, UNSPECIFIED Qualifiers: Constipation type: slow transit constipation Qualified Code(s): K59.01 - Slow transit constipation Dispo: home
[2018-04-13] MEDS: POLYETHYLENE GLYCOL 3350 119 GM BTL PO SCH (10:24)
[2018-04-13] MEDS ORDERED: BACLOFEN 10 MG TABLET (FP) PO ONE (10:30)
[2018-04-13 13:55] LABS: BASO % 0.7 % (0-2.0); EOS % 3.5 % (0-4.5); HEMATOCRIT 25.1 % (32.4-45.2); HEMOGLOBIN 7.9 GM/dL (10.7-15.3); LYMPH % 15.9 % (8-40); MCHC 31.4 g/dl (32.0-36.0); MEAN CELL VOLUME 69.9 fl (80-96); MEAN PLT VOLUME 9.3 fl (7.5-11.1); MONO % 3.5 % (3.8-10.2); NEUT % 76.4 % (42.8-82.8); PLATELET COUNT 199 K/MM3 (134-434); RBC 3.58 M/mm3 (3.60-5.2); RDW 24.6 % (11.6-15.6); WHITE BLOOD COUNT 11.8 K/mm3 (4.0-10.0)
[2018-04-14] MEDS: oxyCODONE HCL 5 MG TABLET PO PRN ×3 (06:01→21:39)
[2018-04-14] MEDS: metFORMIN HCL 500 MG TABLET (FP) PO SCH ×2 (06:01→17:14)
[2018-04-14] MEDS: BACLOFEN 10 MG TABLET (FP) PO SCH ×3 (06:01→21:28)
[2018-04-14 08:04] LABS: ANION GAP 6 MMOL/L (8-16); BLOOD UREA NITROGEN 12 mg/dL (7-18); CALCIUM 7.8 mg/dL (8.5-10.1); CHLORIDE 106 mmol/L (98-107); CO2 28 mmol/L (21-32); CREATININE 0.7 mg/dL (0.55-1.3); GLUCOSE,RANDOM 91 mg/dL (74-106); MAGNESIUM 2.2 mg/dL (1.8-2.4); POTASSIUM 4.1 mmol/L (3.5-5.1); SODIUM 140 mmol/L (136-145)
[2018-04-14 08:18] LABS: BASO % 0.9 % (0-2.0); EOS % 4.4 % (0-4.5); HEMATOCRIT 25.1 % (32.4-45.2); HEMOGLOBIN 8.1 GM/dL (10.7-15.3); LYMPH % 16.1 % (8-40); MCHC 32.3 g/dl (32.0-36.0); MEAN CELL VOLUME 71.1 fl (80-96); MEAN PLT VOLUME 9.9 fl (7.5-11.1); MONO % 5.7 % (3.8-10.2); NEUT % 72.9 % (42.8-82.8); PLATELET COUNT 152 K/MM3 (134-434); RBC 3.54 M/mm3 (3.60-5.2)
[2018-04-14] MEDS ORDERED: PT OWN MED DRAWER 7, Y5N ONE ×3 (09:08→21:27)
[2018-04-14] MEDS: BUDESONIDE/FORMETEROL FUMARATE 80/4.5 mcg INHALER IH SCH ×2 (09:13→21:28)
[2018-04-14] MEDS: VALSARTAN 160 MG TABLET (UD) PO SCH (09:13)
[2018-04-14] MEDS: TAMOXIFEN CITRATE 10 MG TABLET PO SCH ×2 (09:14→21:28)
[2018-04-14] MEDS: HYDROCHLOROTHIAZIDE 25 MG TABLET (FP) PO SCH (09:14)
[2018-04-14] MEDS: POLYETHYLENE GLYCOL 3350 119 GM BTL PO SCH (09:17)
--- NOTE | 2018-04-14 11:54 | PN ---
Progress Note, Physician Chief Complaint: Pt lying in bed in no acute distress. frustrated about continued vaginal bleeding. Denies any chest pain, sob, n/v/d - Current Medication List Current Medications: Active Medications Acetaminophen (Tylenol -) 650 mg PO Q4H PRN PRN Reason: PAIN LEVEL 1-5 Last Admin: 04/13/18 13:00 Dose: 650 mg Baclofen (Lioresal -) 10 mg PO TID [facility] Last Admin: 04/14/18 06:01 Dose: 10 mg Budesonide/Formoterol Fumarate (Symbicort 80/4.5mcg -) 2 puff IH BID [facility] Last Admin: 04/14/18 09:13 Dose: 2 puff Glycerin (Glycerin Suppository Adult -) 1 each [place] DAILY PRN PRN Reason: CONSTIPATION Hydrochlorothiazide (Hctz -) 25 mg PO DAILY [facility] Last Admin: 04/14/18 09:14 Dose: 25 mg Medroxyprogesterone Acetate (Provera -) 10 mg PO BID [facility] Last Admin: 04/14/18 09:15 Dose: 10 mg Metformin HCl (Glucophage -) 500 mg PO BIDAC [facility] Last Admin: 04/14/18 06:01 Dose: 500 mg Oxycodone HCl (Roxicodone -) 10 mg PO Q4H PRN PRN Reason: PAIN LEVEL 6-10 Last Admin: 04/14/18 10:48 Dose: 10 mg Polyethylene Glycol (Miralax (For Daily Use) -) 17 gm PO DAILY [facility] Last Admin: 04/14/18 09:17 Dose: 17 gm Tamoxifen Citrate (Tamoxifen Citrate) 10 mg PO BID [facility] Last Admin: 04/14/18 09:14 Dose: 10 mg Valsartan (Diovan -) 320 mg PO DAILY [facility] Last Admin: 04/14/18 09:13 Dose: 320 mg - Objective Vital Signs: Vital Signs Temperature 98.5 F 04/14/18 07:00 Pulse Rate 80 04/14/18 07:00 Respiratory Rate 20 04/14/18 07:00 Blood Pressure 139/80 04/14/18 07:00 O2 Sat by Pulse Oximetry (%) 95 04/13/18 21:00 Constitutional: Yes: Well Nourished, No Distress Cardiovascular: Yes: WNL, Regular Rate and Rhythm. No: Murmur Respiratory: Yes: WNL, Regular, CTA Bilaterally. No: Accessory Muscle Use, SOB , Tachypnea, Wheezes Gastrointestinal: Yes: WNL, Normal Bowel Sounds, Soft, Abdomen, Obese. No: Distention, Tenderness Genitourinary: Yes: Vaginal Bleeding Extremities: Yes: WNL Edema: No Neurological: Yes: WNL, Alert, Oriented Psychiatric: Yes: WNL, Alert, Oriented Labs: CBC, BMP 04/14/18 06:30 04/14/18 06:30 INR, PTT INR 1.08 (0.83-1.09) 04/10/18 02:15 Assessment/Plan (1) Vaginal bleeding Assessment/Plan: persists continue progesterone discussed w/ [facility], to reassess however limited options here per will try for transfer to tertiary center- awaiting to hear from [facility] Code(s): N93.9 - ABNORMAL UTERINE AND VAGINAL BLEEDING, UNSPECIFIED (2) Acute blood loss anemia Assessment/Plan: persists s/p 3units prbcs monitor cbc Code(s): D62 - ACUTE POSTHEMORRHAGIC ANEMIA (3) Hypertension Assessment/Plan: controlled continue home regimen Code(s): I10 - ESSENTIAL (PRIMARY) HYPERTENSION (4) Lower back pain Assessment/Plan: continue oxycodone, baclofen warm pack as needed ambulate w/ assist as tolerated suspect back spasm/pain exacerbated by uterine bleeding xray lumbar/sacrum w/out acute findings Code(s): M54.5 - LOW BACK PAIN (5) Morbidly obese Assessment/Plan: recommend outpatient weight loss and exercise program per PCP Code(s): E66.01 - MORBID (SEVERE) OBESITY DUE TO EXCESS CALORIES (6) Type 2 diabetes mellitus Assessment/Plan: diabetic diet continue metformin Code(s): E11.9 - TYPE 2 DIABETES MELLITUS WITHOUT COMPLICATIONS (7) Constipation Assessment/Plan: resolved Code(s): K59.00 - CONSTIPATION, UNSPECIFIED Qualifiers: Constipation type: slow transit constipation Qualified Code(s): K59.01 - Slow transit constipation (8) History of breast cancer Assessment/Plan: s/p lumpectomy, chemo, xrt continue tamoxifen Code(s): Z85.3 - PERSONAL HISTORY OF MALIGNANT NEOPLASM OF BREAST (9) History of DVT (deep vein thrombosis) Assessment/Plan: was on xarelto outpt, been held for 5 weeks due to bleeding Code(s): Z86.718 - PERSONAL HISTORY OF OTHER VENOUS THROMBOSIS AND EMBOLISM Dispo: pt is unsafe to be discharged w/ persistent bleeding and borderline hg. Case discussed w/ [facility]ER who reports lack of options here, recommends transfer. Spoke with admitting MD at [facility] [place] [place]- refused transfer currently waiting to hear from [facility]. 40 minutes spent in reviewing chart, formulating plan, discussion with team
[2018-04-14 14:59] LABS: BASO % 0.8 % (0-2.0); EOS % 3.5 % (0-4.5); HEMATOCRIT 25.4 % (32.4-45.2); HEMOGLOBIN 8.2 GM/dL (10.7-15.3); LYMPH % 16.7 % (8-40); MCH 23.1 pg (25.7-33.7); MCHC 32.5 g/dl (32.0-36.0); MEAN CELL VOLUME 71.2 fl (80-96); MEAN PLT VOLUME 9.9 fl (7.5-11.1); MONO % 4.2 % (3.8-10.2); NEUT % 74.8 % (42.8-82.8); PLATELET COUNT 171 K/MM3 (134-434); RBC 3.56 M/mm3 (3.60-5.2); RDW 23.6 % (11.6-15.6); WHITE BLOOD COUNT 9.3 K/mm3 (4.0-10.0)
--- NOTE | 2018-04-14 16:48 | DS ---
Physical Examination Vital Signs: Vital Signs Temperature 97.9 F 04/14/18 15:07 Pulse Rate 85 04/14/18 15:07 Respiratory Rate 20 04/14/18 15:07 Blood Pressure 124/60 04/14/18 15:07 O2 Sat by Pulse Oximetry (%) 95 04/13/18 21:00 Labs: CBC, BMP 04/14/18 14:30 04/14/18 06:30 Discharge Summary Reason For Visit: ANEMIA,VAGINAL BLEEDING,ANEMIA DUE TO BLOOD LOSS Current Active Problems Constipation (Acute) History of breast cancer (Acute) Vaginal bleeding (Acute) Anemia (Chronic) Hospital Course: 43 year old female with pmh of breast CA (2012, s/p lumpectomy, chemo/xrt, on Tamoxifen), menorrhagia, unprovoked DVTs ( left leg 2007, bilateral 2009), on Xarelto, asthma, HTN, DMII admitted for acute blood loss anemia 2/2 vaginal bleeding. Pt has been evaluated by [employer], started on progesterone bid. Pt received 3units prbcs without significant improvement in hg/hct due to continued bleeding. Pt asymptomatic, vitals stable today. However no improvement in vaginal bleeding, and pt continues to have severe lower back pain , suspect 2/2 uterine bleeding. 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 with periodic endometrial sampling given history of abnormal uterine bleeding and tamoxifen use. Pt is medically stable for transfer and pt consents to transfer to [facility]. 40 minutes spent in discharge planning Condition: Stable - Instructions Referrals: Tyrone Rodriguez MD [Primary Care Provider] - - Home Medications Comprehensive Discharge Medication List: Ambulatory Orders Albuterol Sulfate Inhaler - [Ventolin HFA Inhaler -] 2 inh PO Q4H 01/24/17 Bupropion HCl [Wellbutrin Sr] 3 tab PO TID 01/24/17 Fluticasone/Salmeterol [Advair Hfa 230-21 Mcg Inhaler] 230 inh IH BID 01/24/17 Gabapentin 400 mg PO TID 01/24/17 Pramipexole Dihydrochloride [Mirapex -] 0.25 mg PO TID 01/24/17 Tamoxifen Citrate 10 mg PO BID 01/24/17 Valsartan/Hydrochlorothiazide [Valsartan-Hctz 320-25 mg Tab] 1 each PO DAILY 01/30 metFORMIN HCL [Metformin HCl] 500 mg PO BID 01/24/17 Oxycodone HCl/Acetaminophen [Oxycodone-Acetaminophen 10-325] 1 each PO Q4H 10/27
[2018-04-14 21:42] VITALS: BP 133/72; PULSE 84; TEMP 98
== END 2018-04-14 23:52 | disposition short-term general hospital (02) | DRG 532 ==
LOC: JER 01:08 → JERBED 08:41 → J5S 17:51 → OBSVTOIN 04-11 14:49
PROVIDERS: ADMIT Internal Medicine; ATTEND Nurse Practitioner Family
PROC: 30233N1 Transfusion of Nonautologous Red Blood Cells into Peripheral Vein, Percutaneous Approach (ICD-10-PCS; principal; 2018-04-10)
DX: N93.9 Abnormal uterine and vaginal bleeding, unspecified (principal); D62 Acute posthemorrhagic anemia; I95.9 Hypotension, unspecified; E66.01 Morbid (severe) obesity due to excess calories; Z68.43 Body mass index [BMI] 50.0-59.9, adult; E11.9 Type 2 diabetes mellitus without complications; J45.909 Unspecified asthma, uncomplicated; F32.9 Major depressive disorder, single episode, unspecified; F41.9 Anxiety disorder, unspecified; M79.7 Fibromyalgia; I10 Essential (primary) hypertension; N92.1 Excessive and frequent menstruation with irregular cycle; Z85.3 Personal history of malignant neoplasm of breast; K59.00 Constipation, unspecified; M62.838 Other muscle spasm; Z86.718 Personal history of other venous thrombosis and embolism; Z79.01 Long term (current) use of anticoagulants
CPT/HCPCS: 36415; 36430; 36511; 71045-TC-FY; 72100-TC-FY; 76830-TC; 76856-TC; 80048; 81003; 81015; 82962; 83735; 84100; 84703; 85025; 85027; 85044; 85610; 86850; 86870; 86900; 86901; 86902; 86922; 87086; 93005; 93010; 99284-25; G0378; J0475; J7030; P9038; P9058

== ENCOUNTER 2019-03-31 00:25 | Emergency (ER) | payer OTHER ==
[2019-03-31 00:48] VITALS: BP 149/80; PULSE 95; TEMP 97.8; BMI 54.8
--- NOTE | 2019-03-31 00:50 | PDOC ---
Attending Attestation - Resident Resident Name: JoseMartha - ED Attending Attestation I have performed the following: I have examined & evaluated the patient, The case was reviewed & discussed with the resident, I agree w/resident's findings & plan - HPI HPI: 04/04/19 21:51 see resident hpi - Physicial Exam PE: 04/04/19 21:51 agree with resident exam - Medical Decision Making 04/04/19 21:51 43-year-old female with history of breast CA complaining of pain to the left chest wall x2 to 3 days aggravated by lifting at work CTA of the chest showed no pulmonary embolism Patient had no significant EKG findings and normal troponin Will DC with outpatient follow-up Patient agrees with plan
--- NOTE | 2019-03-31 00:53 | PDOC ---
History of Present Illness - General Chief Complaint: Chest Pain Stated Complaint: PAIN LEFT SIDE CHEST Time Seen by Provider: 03/31/19 00:49 - History of Present Illness Initial Comments: 03/31/19 05:26 HPI: 43 y/o F with hx of breast Ca, (2012, s/p chemo, radiation now in remission), anemia, menorrhagia, DVT (left leg 2007, bilateral 2009 on Xarelto), asthma, HTN , DMII, fibromyalgia presenting with left sided chest pain. Pain started 2-3 days ago in left chest but worsened today after heavy lifting at work. Pain is worse on deep inspiration and with motion. Pain feels sharp and stabbing in nature. She denies fever, chills, cough, SOB, LH, AARON, abd pain, n/v, weakness. Of note, she stated she had a mammogram performed 2weeks ago and was told she had an infection. On further hx, she states that she recently had heavy vaginal bleeding and took a break from taking xarelto. PMHx: as noted above ROS: as noted SHx: occ tobacco use; social alcohol use; no rec drugs Allergies: NKDA ROS: GENERAL/CONSTITUTIONAL: No fever or chills. No weakness. HEAD, EYES, EARS, NOSE AND THROAT: No change in vision. No ear pain or discharge. No sore throat. CARDIOVASCULAR: +chest pain; no shortness of breath RESPIRATORY: No cough, wheezing, or hemoptysis. GASTROINTESTINAL: No nausea, vomiting, diarrhea or constipation. GENITOURINARY: No dysuria, frequency, or change in urination. MUSCULOSKELETAL: No joint or muscle swelling or pain. No neck or back pain. SKIN: No rash NEUROLOGIC: No headache, vertigo, loss of consciousness, or change in strength/ sensation. ENDOCRINE: No increased thirst. No abnormal weight change HEMATOLOGIC/LYMPHATIC: No anemia, easy bleeding, or history of blood clots. ALLERGIC/IMMUNOLOGIC: No hives or skin allergy. PE: GENERAL: Awake, alert, and fully oriented, patient crying in distress from pain HEAD: No signs of trauma, normocephalic, atraumatic EYES: EOMI, sclera anicteric, conjunctiva clear ENT: Auricles normal inspection, hearing grossly normal, nares patent, oropharynx clear without exudates. Moist mucosa NECK: Normal ROM, no lymphadenopathy LUNGS: No increased work of breathing, symmetrical chest rise, clear to auscultation bilaterally, no wheezes, crackles or rhonchi HEART: Regular rate and rhythm, normal S1 and S2, no murmur, peripheral pulses 2 + and equal bilaterally. ABDOMEN: Soft, nondistended, nontender, normoactive bowel sounds. No guarding, no rebound. No masses. No CVAT MUSCULOSKELETAL: Normal inspection, FROM NEUROLOGICAL: Cranial nerves II through XII grossly intact. Normal speech, normal gait, no focal sensorimotor deficits SKIN: Warm, Dry, normal turgor, no rashes or lesions noted Past History - Past Medical History Allergies/Adverse Reactions: Allergies Allergy/AdvReac Type Severity Reaction Status Date / Time No Known Drug Allergies Allergy Verified 03/31/19 01:56 Home Medications: Ambulatory Orders Albuterol Sulfate Inhaler - [Ventolin HFA Inhaler -] 2 inh PO Q4H 01/24/17 Fluticasone/Salmeterol [Advair Hfa 230-21 Mcg Inhaler] 230 inh IH BID 01/24/17 Gabapentin 300 mg PO TID 01/24/17 Pramipexole Dihydrochloride [Mirapex -] 0.25 mg PO TID 01/24/17 metFORMIN HCL [Metformin HCl] 500 mg PO BID 01/24/17 Albuterol 0.083% Nebulizer Marlyn [Ventolin 0.083% Nebulizer Soln -] 1 neb NEB Q6H PRN 03/31/19 Ascorbic Acid [C-500] 500 mg PO DAILY 03/31/19 Budesonide [Pulmicort 0.25 mg -] 1 neb PO BID 03/31/19 Cyproheptadine HCl 4 mg PO TID PRN 03/31/19 Furosemide [Lasix -] 20 mg PO DAILY 03/31/19 Magnesium Aspartate HCl [Maginex] 61 mg PO DAILY 03/31/19 Montelukast Sodium [Singulair] 10 mg PO HS 03/31/19 Oxycodone HCl/Acetaminophen [Percocet 10-325 mg Tablet] 1 each PO Q6H 03/31/19 Pantoprazole Sodium [Protonix] 40 mg PO DAILY 03/31/19 Rivaroxaban [Xarelto] 20 mg PO DAILY 03/31/19 Tiotropium [place] [Spiriva Respimat] 4 gm IH DAILY 03/31/19 Valsartan/Hydrochlorothiazide [Diovan Hct 320-12.5 mg Tab] 1 each PO DAILY 03/31 Anemia: Yes Asthma: Yes Cancer: Yes (breast cancer) Cardiac Disorders: (DVTs) CVA: No COPD: No CHF: No DVT: Yes (both legs) Dementia: No Diabetes: Yes GI Disorders: Yes (GERD) Disorders: Yes (microscopic hematuria) HTN: Yes Hypercholesterolemia: No Liver Disease: Yes (fatty liver) Psychiatric Problems: Yes (depression, mood disorder) Seizures: No Thyroid Disease: No - Surgical History Abdominal Surgery: No Appendectomy: No Cardiac Surgery: No Cholecystectomy: No Lung Surgery: No Neurologic Surgery: No Orthopedic Surgery: No - Reproductive History Cervical CA: No Dysfunctional Uterine Bleeding: No Ectopic : No Endometrial CA: No Polycystic Ovaries: No Tubal Ligation: No - Immunization History Immunization Up to Date: Yes - Psycho Social/Smoking Cessation Hx Smoking Status: Yes Smoking History: Never smoked Have you smoked in the past 12 months: No Number of Cigarettes Smoked Daily: 5 If you are a former smoker, when did you quit?: 21 YRS Cigars Per Day: 0 'Breaking Loose' booklet given: 03/06/18 Hx Alcohol Use: Yes (occassionally) Drug/Substance Use Hx: No Substance Use Type: None Hx Substance Use Treatment: Yes (6 YEARS AGO) *Physical Exam - Vital Signs Last Vital Signs Temp Pulse Resp BP Pulse Ox 97.8 F 95 H 20 149/80 100 03/31/19 00:38 03/31/19 00:38 03/31/19 00:38 03/31/19 00:38 03/31/19 00:38 ED Treatment Course - LABORATORY CBC & Chemistry Diagram: 03/31/19 01:45 03/31/19 01:45 Medical Decision Making - Medical Decision Making 03/31/19 05:59 43 y/o F with hx of breast Ca, (2012, s/p chemo, radiation now in remission), anemia, menorrhagia, DVT (left leg 2007, bilateral 2009 on Xarelto), asthma, HTN , DMII, fibromyalgia presenting with left sided chest pain with pleurisy. BP 149 /80 HR 95, sats wnl. AF. PE unremarkable. Given hx, concern for PE, will ruleout -cbc, cmp, trop, bnp, ekg, cxr, CTA -ofirmev 03/31/19 06:[address] without evidence for PE discussed with patient, comfortable with DC home and PCP followup Discharge - Discharge Information Problems reviewed: Yes Clinical Impression/Diagnosis: Chest pain Qualifiers: Chest pain type: unspecified Qualified Code(s): R07.9 - Chest pain, unspecified Condition: Improved Disposition: HOME - Follow up/Referral Referrals: Tyrone Rodriguez MD [Primary Care Provider] - - Patient Discharge Instructions Patient Printed Discharge Instructions: DI for Atypical Chest Pain Additional Instructions: Additional Instructions: Please return to the emergency department with any new or worsening symptoms or concerns. Please follow up with your primary care physician within 72 hours. Please continue taking xarelto. Please followup with PCP and ObGyn for heavy vaginal bleeding - Post Discharge Activity
[2019-03-31] MEDS ORDERED: ACETAMINOPHEN 1000 MG/100 ML VIAL (NON FORMULARY) IVPB ONE (01:18)
[2019-03-31] MEDS ORDERED: ACETAMINOPHEN INJECTION 100 ML IVPB ONE (01:33)
[2019-03-31 02:05] LABS: BASO % 0.7 % (0-2.0); HEMATOCRIT 27.3 % (32.4-45.2); HEMOGLOBIN 8.5 GM/dL (10.7-15.3); LYMPH % 15.1 % (8-40); MCHC 31.2 g/dl (32.0-36.0); MEAN CELL VOLUME 59.7 fl (80-96); MEAN PLT VOLUME 10.1 fl (7.5-11.1); MONO % 5.9 % (3.8-10.2); NEUT % 72.3 % (42.8-82.8); RBC 4.57 M/mm3 (3.60-5.2); RDW 21.4 % (11.6-15.6); WHITE BLOOD COUNT 10.5 K/mm3 (4.0-10.0)
[2019-03-31 02:22] LABS: MCH 18.6 pg (25.7-33.7)
[2019-03-31 02:32] LABS: ALBUMIN 3.2 g/dl (3.4-5.0); BILIRUBIN,TOTAL 0.2 mg/dL (0.2-1); BLOOD UREA NITROGEN 13.4 mg/dL (7-18); CALCIUM 8.4 mg/dL (8.5-10.1); CREATININE 0.7 mg/dL (0.55-1.3); N-TERMINAL BNP 42.8 pg/ml (5-125); POTASSIUM 3.9 mmol/L (3.5-5.1); TOT PROT 7.6 g/dl (6.4-8.2)
[2019-03-31 03:24] LABS: INR 1.06 (0.83-1.09); PROTHROMBIN TIME (PATIENT) 12.5 SEC (9.7-13.0)
[2019-03-31 06:03] LABS: ANISOCYTOSIS 2+
[2019-03-31 06:04] LABS: MACROCYTOSIS 0
[2019-03-31 06:07] LABS: PLATELET COUNT 150 K/MM3 (134-434)
--- NOTE | 2019-03-31 11:58 | EKG ---
Test Reason : Blood Pressure : / mmHG Vent. Rate : 092 BPM Atrial Rate : 092 BPM P-R Int : 176 ms QRS Dur : 100 ms QT Int : 374 ms P-R-T Axes : 042 -02 067 degrees QTc Int : 462 ms NORMAL SINUS RHYTHM NORMAL ECG WHEN COMPARED WITH ECG OF 10-APR-2018 04:41, NO SIGNIFICANT CHANGE WAS FOUND Confirmed by CARLOS ALBERTO MCGILL MD ([id number]) on 03/31/2019 11:58:12 AM Referred By: Confirmed By:CARLOS ALBERTO MCGILL MD
== END 2019-03-31 06:04 | disposition home or self-care (01) ==
LOC: JER 00:25
PROC: 3E033NZ Introduction of Analgesics, Hypnotics, Sedatives into Peripheral Vein, Percutaneous Approach (ICD-10-PCS; principal; 2019-03-31)
DX: R07.9 Chest pain, unspecified (principal); I10 Essential (primary) hypertension; E11.9 Type 2 diabetes mellitus without complications; Z79.84 Long term (current) use of oral hypoglycemic drugs; M79.7 Fibromyalgia; D64.9 Anemia, unspecified; Z86.718 Personal history of other venous thrombosis and embolism; Z79.01 Long term (current) use of anticoagulants; Z85.3 Personal history of malignant neoplasm of breast
CPT/HCPCS: 36415; 71046-TC-FY; 71275-TC; 80053; 82550; 83880; 84484; 85025; 85610; 85730; 93005; 93010; 99283-25; J0131; Q9967

== ENCOUNTER 2020-06-22 04:53 | Observation (INO) | payer OTHER ==
[2020-06-22] MEDS ORDERED: LACTATED RINGERS SOLUTION 1000 ML INFUS.BAG IV ONE ×2 (05:23→06:50)
[2020-06-22] MEDS ORDERED: ACETAMINOPHEN 1000 MG/100 ML VIAL (NON FORMULARY) IVPB ONE ×2 (05:23→22:35)
[2020-06-22] MEDS ORDERED: ACETAMINOPHEN INJECTION 100 ML IVPB ONE (05:37)
[2020-06-22 06:15] LABS: BASO % 0.6 % (0-2.0); EOS % 0.9 % (0-4.5); HEMATOCRIT 33.7 % (32.4-45.2); HEMOGLOBIN 10.8 GM/dL (10.7-15.3); LYMPH % 8.2 % (8-40); MCH 21.2 pg (25.7-33.7); MCHC 32.1 g/dl (32.0-36.0); MEAN CELL VOLUME 65.8 fl (80-96); MEAN PLT VOLUME 9.2 fl (7.5-11.1); MONO % 4.4 % (3.8-10.2); NEUT % 85.9 % (42.8-82.8); PLATELET COUNT 204 K/MM3 (134-434); RBC 5.11 M/mm3 (3.60-5.2); WHITE BLOOD COUNT 22.7 K/mm3 (4.0-10.0)
[2020-06-22 06:27] LABS: INR 1.31 (0.83-1.09)
[2020-06-22 06:29] LABS: ACTIVATED PTT 36.8 SECONDS (25.2-36.5)
[2020-06-22 06:31] LABS: CALCIUM 8.7 mg/dL (8.5-10.1)
[2020-06-22 06:32] LABS: ALBUMIN 3.4 g/dl (3.4-5.0); BLOOD UREA NITROGEN 12.2 mg/dL (7-18)
[2020-06-22 06:35] LABS: CREATININE 0.9 mg/dL (0.55-1.3)
[2020-06-22 06:37] LABS: BILIRUBIN,TOTAL 0.4 mg/dL (0.2-1)
[2020-06-22] MEDS ORDERED: VANCOMYCIN 1 GM in D5W (PRE-DOCKED) 1,000 MG/250 ML IVPB ONE (06:41)
[2020-06-22] MEDS ORDERED: PIPERACILLIN/TAZOB 4.5 GM 4.5 GM in DEXTROSE 5%-WATER 100 ML IVPB ONE (06:42)
[2020-06-22] MEDS ORDERED: VANCOMYCIN 1 GRAM (PRE-DOCKED) 1,000 MG/250 ML BAG IVPB ONE (07:46)
[2020-06-22] MEDS ORDERED: PIPERACILLIN/TAZOB 4.5 GM 4.5 GM/100 ML BAG IVPB ONE (07:46)
[2020-06-22 09:32] LABS: URINE APPEARANCE CLEAR; URINE BILIRUBIN NEGATIVE (NEGATIVE); URINE GLUCOSE (UA) NEGATIVE (NEGATIVE); URINE KETONE NEGATIVE (NEGATIVE); URINE NITRITE NEGATIVE (NEGATIVE); URINE PROTEIN TRACE (NEGATIVE)
[2020-06-22 09:33] LABS: EPI CELLS 37 /uL (0-25.1); HYALINE CASTS 1 /uL (0-3.1); URINE BACTERIA 141 /uL (0-1359); URINE COLOR YELLOW; URINE LEUK ESTERASE NEGATIVE (NEGATIVE); URINE WBC 14 /uL (0-25.8)
[2020-06-22 09:39] LABS: ANISOCYTOSIS 3+; MACROCYTOSIS 0; PLATELET ESTIMATE NORMAL
[2020-06-22 10:38] LABS: URINE RBC 44 /uL (0-23.9)
[2020-06-22 11:52] LABS: URIC ACID 4.2 mg/dL (2.6-7.2)
[2020-06-22] MEDS ORDERED: RIVAROXABAN 10 MG TABLET PO SCH (18:00)
[2020-06-22] MEDS: INSULIN SLIDING SCALE (NOVOLOG) 1 VIAL SQ SCH ×2 (19:20→22:50)
[2020-06-22] MEDS: RIVAROXABAN 20 MG TABLET PO SCH (22:40)
[2020-06-23 00:38] VITALS: BMI 56.5
[2020-06-23] MEDS: INSULIN SLIDING SCALE (NOVOLOG) 1 VIAL SQ SCH ×5 (06:47→21:31)
[2020-06-23] MEDS ORDERED: ALBUTEROL SO4 HFA INHALER IH PRN (08:28)
[2020-06-23] MEDS ORDERED: cefTRIAXone SODIUM 1 GM VIAL ONE (09:12)
[2020-06-23] MEDS ORDERED: DEXTROSE 5%-WATER - 50 ML IVPB ONE (09:12)
[2020-06-23] MEDS ORDERED: KETOROLAC TROMETHAMINE 30 MG/1 ML VIAL IVPB ONE (09:30)
[2020-06-23] MEDS: CEFTRIAXONE 1 GM in DEXTROSE 5%-WATER - 50 ML IVPB SCH (09:32)
[2020-06-23 09:52] LABS: HEMATOCRIT 34.1 % (32.4-45.2); HEMOGLOBIN 10.8 GM/dL (10.7-15.3); MCH 21.2 pg (25.7-33.7); MCHC 31.8 g/dl (32.0-36.0); MEAN CELL VOLUME 66.8 fl (80-96); MEAN PLT VOLUME 9.4 fl (7.5-11.1); PLATELET COUNT 186 K/MM3 (134-434); RDW 22.2 % (11.6-15.6); WHITE BLOOD COUNT 8.9 K/mm3 (4.0-10.0)
[2020-06-23] MEDS ORDERED: PATIENT'S OWN MEDICATION (NON-FORMULARY) (Fluticasone/Salmeterol [Advair Hfa 230-21 Mcg In IH SCH (10:00)
[2020-06-23] MEDS: BUDESONIDE/FORMETEROL FUMARATE 160/4.5 mcg INHALER IH SCH ×3 (10:37→21:32)
[2020-06-23 11:59] LABS: BILIRUBIN,TOTAL 0.3 mg/dL (0.2-1); BLOOD UREA NITROGEN 10.9 mg/dL (7-18); CALCIUM 8.9 mg/dL (8.5-10.1); CREATININE 0.7 mg/dL (0.55-1.3); PHOSPHOROUS 3.8 mg/dL (2.5-4.9); TOT PROT 7.7 g/dl (6.4-8.2)
[2020-06-23] MEDS: RIVAROXABAN 20 MG TABLET PO SCH (17:44)
[2020-06-23] MEDS ORDERED: PT OWN MED DRAWER 7, Y5N ONE (18:35)
[2020-06-23] MEDS: ACETAMINOPHEN 325 MG TABLET (FP) PO PRN (20:46)
[2020-06-23] MEDS: MONTELUKAST NA 10 MG TABLET PO SCH ×2 (20:47→21:32)
[2020-06-23] MEDS ORDERED: FAMOTIDINE 20 MG TABLET PO ONE (20:54)
[2020-06-24] MEDS: INSULIN SLIDING SCALE (NOVOLOG) 1 VIAL SQ SCH ×4 (06:15→22:38)
[2020-06-24] MEDS ORDERED: cefTRIAXone SODIUM 1 GM VIAL ONE (09:18)
[2020-06-24] MEDS ORDERED: DEXTROSE 5%-WATER - 50 ML IVPB ONE (09:19)
[2020-06-24] MEDS: CEFTRIAXONE 1 GM in DEXTROSE 5%-WATER - 50 ML IVPB SCH (09:59)
[2020-06-24 10:02] LABS: BASO % 0.8 % (0-2.0); HEMOGLOBIN 10.8 GM/dL (10.7-15.3); LYMPH % 11.6 % (8-40); MCH 21.1 pg (25.7-33.7); MCHC 31.7 g/dl (32.0-36.0); MEAN CELL VOLUME 66.5 fl (80-96); MEAN PLT VOLUME 9.8 fl (7.5-11.1); MONO % 4.1 % (3.8-10.2); NEUT % 77.5 % (42.8-82.8); PLATELET COUNT 200 K/MM3 (134-434); RBC 5.12 M/mm3 (3.60-5.2); WHITE BLOOD COUNT 9.5 K/mm3 (4.0-10.0)
[2020-06-24] MEDS: BUDESONIDE/FORMETEROL FUMARATE 160/4.5 mcg INHALER IH SCH ×2 (10:03→22:34)
[2020-06-24 10:20] LABS: BLOOD UREA NITROGEN 11.8 mg/dL (7-18); MAGNESIUM 1.9 mg/dL (1.8-2.4)
[2020-06-24 10:22] LABS: CREATININE 0.7 mg/dL (0.55-1.3); PHOSPHOROUS 4.2 mg/dL (2.5-4.9)
[2020-06-24 10:24] LABS: BILIRUBIN,TOTAL 0.3 mg/dL (0.2-1); TOT PROT 7.6 g/dl (6.4-8.2)
[2020-06-24 11:08] LABS: HIV INTERPRETATION NEGATIVE (NEGATIVE)
[2020-06-24] MEDS: RIVAROXABAN 20 MG TABLET PO SCH (18:04)
[2020-06-24] MEDS: ACETAMINOPHEN 325 MG TABLET (FP) PO PRN (22:30)
[2020-06-24] MEDS: MONTELUKAST NA 10 MG TABLET PO SCH (22:30)
[2020-06-25] MEDS: INSULIN SLIDING SCALE (NOVOLOG) 1 VIAL SQ SCH ×4 (06:46→21:23)
[2020-06-25] MEDS ORDERED: DEXTROSE 5%-WATER - 50 ML IVPB ONE (10:33)
[2020-06-25] MEDS ORDERED: cefTRIAXone SODIUM 1 GM VIAL ONE (10:33)
[2020-06-25] MEDS: BUDESONIDE/FORMETEROL FUMARATE 160/4.5 mcg INHALER IH SCH ×2 (10:40→21:24)
[2020-06-25 10:52] LABS: BASO % 0.8 % (0-2.0); EOS % 4.8 % (0-4.5); HEMOGLOBIN 11.2 GM/dL (10.7-15.3); LYMPH % 13.6 % (8-40); MCH 21.2 pg (25.7-33.7); MCHC 31.9 g/dl (32.0-36.0); MEAN CELL VOLUME 66.4 fl (80-96); MEAN PLT VOLUME 9.9 fl (7.5-11.1); MONO % 5.1 % (3.8-10.2); NEUT % 75.7 % (42.8-82.8); PLATELET COUNT 213 K/MM3 (134-434); RBC 5.27 M/mm3 (3.60-5.2); RDW 21.9 % (11.6-15.6); WHITE BLOOD COUNT 8.4 K/mm3 (4.0-10.0)
[2020-06-25 11:06] LABS: CALCIUM 9.1 mg/dL (8.5-10.1)
[2020-06-25 11:07] LABS: ALBUMIN 3.1 g/dl (3.4-5.0); MAGNESIUM 1.9 mg/dL (1.8-2.4)
[2020-06-25 11:11] LABS: CREATININE 0.7 mg/dL (0.55-1.3)
[2020-06-25 11:15] LABS: BILIRUBIN,TOTAL 0.4 mg/dL (0.2-1)
[2020-06-25] MEDS: CEFTRIAXONE 1 GM in DEXTROSE 5%-WATER - 50 ML IVPB SCH (12:13)
[2020-06-25] MEDS: HYDROCHLOROTHIAZIDE 12.5 MG CAPSULE (FP) PO SCH (13:13)
[2020-06-25] MEDS: VALSARTAN 160 MG TABLET PO SCH (13:13)
[2020-06-25] MEDS ORDERED: FERRIC CARBOXYMALTOSE 750 MG in SODIUM CHLORIDE 250 ML IVPB ONE (14:00)
[2020-06-25] MEDS: valACYclovir HCL 500 MG TABLET (FP) PO SCH ×2 (14:19→21:23)
[2020-06-25 15:11] LABS: ANISOCYTOSIS 1+; MACROCYTOSIS 0; PLATELET ESTIMATE NORMAL; TARGET CELLS 1+; TEAR DROP CELLS 1+
[2020-06-25] MEDS: RIVAROXABAN 20 MG TABLET PO SCH (17:02)
[2020-06-25 17:07] LABS: IGA IMMUNOGLOBULIN 391 mg/dL (87-352); IGG QN IMMUNOGLOBULIN 1743 mg/dL (586-1602); IGM QN SERUM 74 mg/dL (26-217)
[2020-06-25 20:46] VITALS: TEMP 97.4
[2020-06-25] MEDS: MONTELUKAST NA 10 MG TABLET PO SCH (21:24)
[2020-06-26] MEDS: INSULIN SLIDING SCALE (NOVOLOG) 1 VIAL SQ SCH ×2 (06:41→12:06)
[2020-06-26] MEDS ORDERED: cefTRIAXone SODIUM 1 GM VIAL ONE (09:16)
[2020-06-26] MEDS ORDERED: DEXTROSE 5%-WATER - 50 ML IVPB ONE (09:16)
[2020-06-26] MEDS ORDERED: FAMOTIDINE 20 MG TABLET PO ONE (09:35)
[2020-06-26] MEDS: VALSARTAN 160 MG TABLET PO SCH (09:47)
[2020-06-26] MEDS: HYDROCHLOROTHIAZIDE 12.5 MG CAPSULE (FP) PO SCH (09:47)
[2020-06-26] MEDS: BUDESONIDE/FORMETEROL FUMARATE 160/4.5 mcg INHALER IH SCH (09:48)
[2020-06-26] MEDS ORDERED: NEOMYCIN/BACI/POLY/HC TOPICAL OINT 15 GM TUBE TP ONE (09:52)
[2020-06-26] MEDS ORDERED: HYDROCORTISONE 0.5% TOPICAL CREAM 30 GM TUBE TP ONE (10:20)
[2020-06-26 12:11] VITALS: BP 122/68; PULSE 81
[2020-06-26 15:10] LABS: EPSTEIN BARR ANTIBODY IgM <36.0 U/mL (0.0-35.9)
[2020-07-02 08:18] LABS: Hgb F 0; Hgb S 0
== END 2020-06-26 12:12 | disposition home or self-care (01) ==
LOC: JER 04:53 → JERBED 08:48 → UNDOADMOB 08:48 → INTOOBSV 08:48 → JERBED 10:58 → J6S 21:51
PROVIDERS: ADMIT Internal Medicine; ATTEND Student in an Organized Health Care Education/Training Program
PROC: 3E033NZ Introduction of Analgesics, Hypnotics, Sedatives into Peripheral Vein, Percutaneous Approach (ICD-10-PCS; principal; 2020-06-22)
PROC: 3E03329 Introduction of Other Anti-infective into Peripheral Vein, Percutaneous Approach (ICD-10-PCS; 2020-06-22)
PROC: 3E0333Z Introduction of Anti-inflammatory into Peripheral Vein, Percutaneous Approach (ICD-10-PCS; 2020-06-22)
PROC: 3E0337Z Introduction of Electrolytic and Water Balance Substance into Peripheral Vein, Percutaneous Approach (ICD-10-PCS; 2020-06-22)
DX: Z85.3 Personal history of malignant neoplasm of breast (principal); D64.9 Anemia, unspecified; J45.909 Unspecified asthma, uncomplicated; I10 Essential (primary) hypertension; E66.01 Morbid (severe) obesity due to excess calories; Z68.43 Body mass index [BMI] 50.0-59.9, adult; E11.9 Type 2 diabetes mellitus without complications; F17.210 Nicotine dependence, cigarettes, uncomplicated; R79.89 Other specified abnormal findings of blood chemistry; K21.9 Gastro-esophageal reflux disease without esophagitis; Z79.01 Long term (current) use of anticoagulants; R16.2 Hepatomegaly with splenomegaly, not elsewhere classified; K76.0 Fatty (change of) liver, not elsewhere classified; Z86.718 Personal history of other venous thrombosis and embolism; R06.82 Tachypnea, not elsewhere classified; R50.9 Fever, unspecified
CPT/HCPCS: 36415; 71045-TC-FY; 74177-TC; 76705-TC; 80053; 80074; 81003; 82607; 82728; 82747; 82784; 82962; 83010; 83020; 83021; 83540; 83550; 83605; 83615; 83735; 83883; 84100; 84550; 84703; 85014; 85025; 85027; 85045; 85610; 85660; 85730; 86644; 86663; 86664; 86665; 87040; 87086; 87389; 87799; 93005; 93010; 93306-TC; 96361; 96365; 96367; 96375; 96376; 99285-25; C9803; G0378; J0131; J1439; Q9967; U0003; U0005

== ENCOUNTER 2020-07-28 19:46 | Emergency (ER) | payer OTHER ==
[2020-07-28 19:52] VITALS: TEMP 97.6; BMI 56.7
[2020-07-28] MEDS ORDERED: SODIUM CHLORIDE 1,000 ML IV STA (20:15)
[2020-07-28] MEDS ORDERED: ONDANSETRON 4 MG/2 ML VIAL IVPUSH ONE (20:24)
[2020-07-28] MEDS ORDERED: LACTATED RINGERS SOLUTION 1000 ML INFUS.BAG IV ONE ×2 (20:36→20:37)
[2020-07-28] MEDS ORDERED: ONDANSETRON 4 MG/2 ML VIAL ONE (21:19)
[2020-07-28 21:27] LABS: VENOUS BASE EXCESS 2.9 mmol/L (-2-2); VENOUS O2 SATURATION 94.3 % (70-80); VENOUS PCO2 40.9 mmHg (38-52); VENOUS PH 7.442 (7.310-7.410)
[2020-07-28 21:35] LABS: BASO % 0.5 % (0-2.0); EOS % 5.1 % (0-4.5); HEMATOCRIT 36.6 % (32.4-45.2); HEMOGLOBIN 11.7 GM/dL (10.7-15.3); LYMPH % 12.8 % (8-40); MCH 22.7 pg (25.7-33.7); MCHC 31.9 g/dl (32.0-36.0); MEAN CELL VOLUME 71.2 fl (80-96); MEAN PLT VOLUME 9.5 fl (7.5-11.1); NEUT % 74.6 % (42.8-82.8); PLATELET COUNT 179 K/MM3 (134-434); RBC 5.14 M/mm3 (3.60-5.2); RDW 25.5 % (11.6-15.6); WHITE BLOOD COUNT 9.9 K/mm3 (4.0-10.0)
[2020-07-28 21:38] LABS: INR 1.15 (0.83-1.09); PROTHROMBIN TIME (PATIENT) 13.9 SEC (9.7-13.0)
[2020-07-28 21:41] LABS: ACTIVATED PTT 32.7 SECONDS (25.2-36.5)
[2020-07-28 21:43] LABS: CHLORIDE 106 mmol/L (98-107); SODIUM 141 mmol/L (136-145)
[2020-07-28 21:48] LABS: ALBUMIN 3.1 g/dl (3.4-5.0); ANION GAP 7 MMOL/L (8-16); BLOOD UREA NITROGEN 11.9 mg/dL (7-18); CALCIUM 8.2 mg/dL (8.5-10.1); CO2 28 mmol/L (21-32); GLUCOSE,RANDOM 144 mg/dL (74-106)
[2020-07-28 21:50] LABS: SGPT/ALT 24 U/L (13-61)
[2020-07-28 21:51] LABS: ALK PHOS 92 U/L (45-117); CREATININE 0.6 mg/dL (0.55-1.3); SGOT/AST 22 U/L (15-37)
[2020-07-28 21:52] LABS: TOT PROT 7.2 g/dl (6.4-8.2)
[2020-07-28 21:54] LABS: BILIRUBIN,TOTAL 0.4 mg/dL (0.2-1)
[2020-07-28 23:12] VITALS: BP 148/90; PULSE 72
[2020-07-29 02:35] LABS: URINE APPEARANCE CLEAR; URINE BILIRUBIN NEGATIVE (NEGATIVE); URINE COLOR YELLOW; URINE GLUCOSE (UA) NEGATIVE (NEGATIVE); URINE KETONE NEGATIVE (NEGATIVE)
[2020-07-29 02:36] LABS: PH,URINE 7.5 (5.0-8.0); URINE NITRITE NEGATIVE (NEGATIVE); URINE PROTEIN NEGATIVE (NEGATIVE)
[2020-07-29 02:37] LABS: EPI CELLS MODERATE /uL (0-25.1); URINE LEUK ESTERASE NEGATIVE (NEGATIVE)
[2020-07-29 02:38] LABS: URINE BACTERIA MODERATE /uL (0-1359)
[2020-07-29 07:54] LABS: ANISOCYTOSIS 3+
== END 2020-07-29 03:24 | disposition home or self-care (01) ==
LOC: JER 19:46
PROC: 3E033GC Introduction of Other Therapeutic Substance into Peripheral Vein, Percutaneous Approach (ICD-10-PCS; principal; 2020-07-28)
DX: R16.2 Hepatomegaly with splenomegaly, not elsewhere classified (principal); R11.2 Nausea with vomiting, unspecified; R10.84 Generalized abdominal pain
CPT/HCPCS: 36415; 71045-TC-FY; 74177-TC; 80053; 81003; 82010; 82550; 82803; 82962; 83605; 84484; 84703; 85025; 85610; 85730; 87040; 87086; 93005; 93010; 99285-25; C9803; Q9967; U0003; U0005

== ENCOUNTER 2020-08-29 18:13 | Emergency (ER) | payer OTHER ==
[2020-08-29 18:25] VITALS: TEMP 98.1; BMI 43.3
[2020-08-29] MEDS ORDERED: ONDANSETRON 4 MG/2 ML VIAL IVPUSH ONE (19:40)
[2020-08-29] MEDS ORDERED: morphine CARPU-JECT 4 MG/1 ML DISP.SYRIN IVPUSH ONE (19:40)
[2020-08-29] MEDS ORDERED: ONDANSETRON 4 MG/2 ML VIAL ONE (19:47)
[2020-08-29] MEDS ORDERED: morphine SULFATE 4 MG/ML VIAL ONE (19:47)
[2020-08-29 20:18] LABS: BASO % 0.6 % (0-2.0); EOS % 4.5 % (0-4.5); HEMATOCRIT 42.6 % (32.4-45.2); HEMOGLOBIN 13.9 GM/dL (10.7-15.3); LYMPH % 15.6 % (8-40); MCH 23.5 pg (25.7-33.7); MCHC 32.7 g/dl (32.0-36.0); NEUT % 74.3 % (42.8-82.8); PLATELET COUNT 197 10^3/uL (134-434); RBC 5.92 M/mm3 (3.60-5.2); RDW 23.2 % (11.6-15.6); WHITE BLOOD COUNT 9.8 K/mm3 (4.0-10.0)
[2020-08-29 20:54] LABS: CHLORIDE 102 mmol/L (98-107); SODIUM 137 mmol/L (136-145)
[2020-08-29 20:56] LABS: ALBUMIN 3.5 g/dl (3.4-5.0); BLOOD UREA NITROGEN 12.8 mg/dL (7-18); CALCIUM 9.1 mg/dL (8.5-10.1); CO2 29 mmol/L (21-32); LIPASE 56 U/L (73-393)
[2020-08-29 20:57] LABS: GLUCOSE,RANDOM 63 mg/dL (74-106); MAGNESIUM 1.8 mg/dL (1.8-2.4)
[2020-08-29 20:59] LABS: CREATININE 0.7 mg/dL (0.55-1.3); SGOT/AST 71 U/L (15-37); SGPT/ALT 33 U/L (13-61)
[2020-08-29 21:01] LABS: BILIRUBIN,TOTAL 0.5 mg/dL (0.2-1); TOT PROT 9.2 g/dl (6.4-8.2)
[2020-08-29 21:02] LABS: ALK PHOS 110 U/L (45-117)
[2020-08-29 21:05] LABS: N-TERMINAL BNP 66.5 pg/ml (5-125)
[2020-08-29 21:14] LABS: ANISOCYTOSIS 3+; MACROCYTOSIS 0; PLATELET ESTIMATE NORMAL
[2020-08-29 21:44] LABS: ANION GAP 7 MMOL/L (8-16)
[2020-08-29] MEDS ORDERED: LIDOCAINE PATCH REMOVAL MC SCH (22:00)
[2020-08-29 22:48] LABS: INR 1.13 (0.83-1.09); PROTHROMBIN TIME (PATIENT) 13.6 SEC (9.7-13.0)
[2020-08-29 22:51] LABS: ACTIVATED PTT 33.1 SECONDS (25.2-36.5)
[2020-08-29 23:02] LABS: CALCIUM 8.3 mg/dL (8.5-10.1)
[2020-08-29 23:03] LABS: ALBUMIN 3.1 g/dl (3.4-5.0); BLOOD UREA NITROGEN 13.9 mg/dL (7-18)
[2020-08-29 23:06] LABS: CREATININE 0.5 mg/dL (0.55-1.3)
[2020-08-29 23:07] LABS: BILIRUBIN,TOTAL 0.2 mg/dL (0.2-1); TOT PROT 7.4 g/dl (6.4-8.2)
[2020-08-29] MEDS ORDERED: LIDOCAINE 5% TOPICAL PATCH TP ONE (23:10)
[2020-08-29] MEDS ORDERED: METHOCARBAMOL 500 MG TABLET PO ONE ×2 (23:10→23:12)
[2020-08-29] MEDS ORDERED: KETOROLAC TROMETHAMINE 15 MG/ML VIAL IVPUSH ONE (23:10)
[2020-08-29] MEDS ORDERED: KETOROLAC TROMETHAMINE 15 MG/ML VIAL ONE (23:21)
[2020-08-29] MEDS ORDERED: METHOCARBAMOL 500 MG TABLET ONE (23:21)
[2020-08-29] MEDS ORDERED: LIDOCAINE 5% TOPICAL PATCH ONE (23:21)
[2020-08-30 02:01] VITALS: BP 117/72; PULSE 74
== END 2020-08-30 02:07 | disposition home or self-care (01) ==
LOC: JER 18:13
PROC: 3E0333Z Introduction of Anti-inflammatory into Peripheral Vein, Percutaneous Approach (ICD-10-PCS; principal; 2020-08-29)
PROC: 3E033NZ Introduction of Analgesics, Hypnotics, Sedatives into Peripheral Vein, Percutaneous Approach (ICD-10-PCS; 2020-08-29)
PROC: 3E033GC Introduction of Other Therapeutic Substance into Peripheral Vein, Percutaneous Approach (ICD-10-PCS; 2020-08-29)
DX: M25.552 Pain in left hip (principal); M54.16 Radiculopathy, lumbar region
CPT/HCPCS: 36415; 72131-TC; 73502-TC-LT-FY; 74177-TC; 80053; 82550; 82553; 82962; 83605; 83690; 83735; 83880; 84484; 84703; 85025; 85610; 85730; 93005; 93010; 99285-25; C9803; Q9967; U0003; U0005

== ENCOUNTER 2022-01-22 21:03 | Inpatient (IN) | payer OTHER ==
[2022-01-22 21:15] VITALS: BMI 56.7
[2022-01-22] MEDS ORDERED: FAMOTIDINE 20 MG/50 ML IVPB 20 MG/50 ML MG IVPB ONE (22:58)
[2022-01-22] MEDS ORDERED: ACETAMINOPHEN 1000 MG/100 ML BAG IVPB ONE (22:58)
[2022-01-23] MEDS ORDERED: FAMOTIDINE 20 MG/50 ML IVPB 20 MG/50 ML MG IVPB ONE (00:06)
[2022-01-23] MEDS ORDERED: ACETAMINOPHEN INJECTION 100 ML IVPB ONE (00:06)
[2022-01-23] MEDS ORDERED: SODIUM CHLORIDE 0.9% 500 ML INFUS.BAG IV ONE (00:06)
[2022-01-23 00:45] LABS: BASO % 0.5 % (0-2.0); EOS % 6.2 % (0-4.5); HEMATOCRIT 29.4 % (32.4-45.2); HEMOGLOBIN 9.1 GM/dL (10.7-15.3); LYMPH % 15.1 % (8-40); MCHC 30.9 g/dl (32.0-36.0); MEAN CELL VOLUME 63.8 fl (80-96); MEAN PLT VOLUME 9.5 fl (7.5-11.1); MONO % 6.1 % (3.8-10.2); NEUT % 72.1 % (42.8-82.8); RDW 20.8 % (11.6-15.6); WHITE BLOOD COUNT 9.9 K/mm3 (4.0-10.0)
[2022-01-23 01:05] LABS: MCH 19.7 pg (25.7-33.7)
[2022-01-23 01:06] LABS: ALBUMIN 3.4 g/dl (3.4-5.0); BLOOD UREA NITROGEN 16.2 mg/dL (7-18); CALCIUM 9.2 mg/dL (8.5-10.1); MAGNESIUM 1.9 mg/dL (1.8-2.4)
[2022-01-23 01:09] LABS: CREATININE 0.7 mg/dL (0.55-1.3)
[2022-01-23 01:11] LABS: BILIRUBIN,TOTAL 0.5 mg/dL (0.2-1); TOT PROT 8.5 g/dl (6.4-8.2)
[2022-01-23 01:37] LABS: EPI CELLS >36 /uL (0-25.1); HYALINE CASTS 1 /uL (0-3.1); URINE APPEARANCE CLOUDY; URINE BACTERIA 755 /uL (0-1359); URINE BILIRUBIN NEGATIVE (NEGATIVE); URINE COLOR YELLOW; URINE GLUCOSE (UA) NEGATIVE (NEGATIVE); URINE KETONE NEGATIVE (NEGATIVE); URINE LEUK ESTERASE NEGATIVE (NEGATIVE); URINE NITRITE NEGATIVE (NEGATIVE); URINE PROTEIN 2+ (NEGATIVE); URINE RBC 30 /uL (0-23.9); URINE UROBILINOGEN 0.2 mg/dL (0.2-1.0); URINE WBC 51 /uL (0-25.8)
[2022-01-23 03:43] LABS: ANISOCYTOSIS 2+; MACROCYTOSIS 0; TARGET CELLS 2+
[2022-01-23 03:52] LABS: PLATELET COUNT 396 10^3/uL (134-434)
[2022-01-23 05:32] LABS: CALCIUM 8.9 mg/dL (8.5-10.1)
[2022-01-23 05:33] LABS: BLOOD UREA NITROGEN 15.3 mg/dL (7-18)
[2022-01-23 05:36] LABS: CREATININE 0.6 mg/dL (0.55-1.3)
[2022-01-23] MEDS ORDERED: SODIUM CHLORIDE 1,000 ML IV SCH (07:15)
[2022-01-23 10:01] LABS: BASO % 0.6 % (0-2.0); EOS % 5.9 % (0-4.5); HEMATOCRIT 29.4 % (32.4-45.2); HEMOGLOBIN 9.2 GM/dL (10.7-15.3); LYMPH % 14.7 % (8-40); MCHC 31.4 g/dl (32.0-36.0); MEAN CELL VOLUME 63.7 fl (80-96); MEAN PLT VOLUME 8.7 fl (7.5-11.1); MONO % 4.9 % (3.8-10.2); NEUT % 73.9 % (42.8-82.8); PLATELET COUNT 202 10^3/uL (134-434); RBC 4.62 M/mm3 (3.60-5.2); WHITE BLOOD COUNT 7.9 K/mm3 (4.0-10.0)
[2022-01-23 10:13] LABS: ALBUMIN 3.2 g/dl (3.4-5.0); BLOOD UREA NITROGEN 13.6 mg/dL (7-18); CALCIUM 8.6 mg/dL (8.5-10.1); MAGNESIUM 1.9 mg/dL (1.8-2.4)
[2022-01-23 10:17] LABS: CREATININE 0.6 mg/dL (0.55-1.3); PHOSPHOROUS 4.6 mg/dL (2.5-4.9)
[2022-01-23 10:19] LABS: BILIRUBIN,TOTAL 0.3 mg/dL (0.2-1); TOT PROT 7.3 g/dl (6.4-8.2)
[2022-01-23] MEDS: ENOXAPARIN NA (PORCINE) 40 MG/0.4 ML DISP.SYRIN SQ SCH (10:26)
[2022-01-23] MEDS: CEFTRIAXONE 1 GM in DEXTROSE 5%-WATER - 50 ML IVPB SCH (10:26)
[2022-01-23] MEDS ORDERED: ACETAMINOPHEN 325 MG TABLET (FP) PO PRN (11:33)
[2022-01-23] MEDS: VALSARTAN 160 MG TABLET PO SCH (17:56)
[2022-01-23 21:17] LABS: URINE APPEARANCE Error; URINE BILIRUBIN NEGATIVE (NEGATIVE); URINE COLOR YELLOW; URINE GLUCOSE (UA) NEGATIVE (NEGATIVE); URINE KETONE NEGATIVE (NEGATIVE); URINE LEUK ESTERASE NEGATIVE (NEGATIVE); URINE NITRITE NEGATIVE (NEGATIVE); URINE PROTEIN TRACE (NEGATIVE); URINE UROBILINOGEN 0.2 mg/dL (0.2-1.0)
[2022-01-24] MEDS: CEFTRIAXONE 1 GM in DEXTROSE 5%-WATER - 50 ML IVPB SCH (10:29)
[2022-01-24] MEDS: ENOXAPARIN NA (PORCINE) 40 MG/0.4 ML DISP.SYRIN SQ SCH (10:29)
[2022-01-24] MEDS: VALSARTAN 160 MG TABLET PO SCH (10:30)
[2022-01-24 13:26] LABS: INR 1.09 (0.83-1.09); PROTHROMBIN TIME (PATIENT) 12.6 SEC (9.7-13.0)
[2022-01-24 13:28] LABS: ACTIVATED PTT 39.7 SECONDS (25.2-36.5)
[2022-01-24] MEDS: POLYETHYLENE GLYCOL (HEALTHYLAX) 3350 17 GM PACKET PO SCH ×2 (15:24→22:07)
[2022-01-24] MEDS ORDERED: diphenhydrAMINE HCL 25 MG CAPSULE (FP) PO ONE (22:46)
[2022-01-25] MEDS ORDERED: PRAMIPEXOLE DIHYDROCHLORIDE 0.25 MG TABLET PO SCH (06:00)
[2022-01-25] MEDS: PRAMIPEXOLE DIHYDROCHLORIDE 0.25 MG TABLET PO SCH ×3 (06:34→22:29)
[2022-01-25] MEDS: POLYETHYLENE GLYCOL (HEALTHYLAX) 3350 17 GM PACKET PO SCH ×3 (06:34→22:29)
[2022-01-25] MEDS: CEFTRIAXONE 1 GM in DEXTROSE 5%-WATER - 50 ML IVPB SCH (09:11)
[2022-01-25] MEDS: VALSARTAN 160 MG TABLET PO SCH (09:11)
[2022-01-25] MEDS: ENOXAPARIN NA (PORCINE) 40 MG/0.4 ML DISP.SYRIN SQ SCH (09:12)
[2022-01-25] MEDS: PANTOPRAZOLE 40 MG TABLET PO SCH (09:25)
[2022-01-26] MEDS: POLYETHYLENE GLYCOL (HEALTHYLAX) 3350 17 GM PACKET PO SCH ×3 (05:29→21:00)
[2022-01-26] MEDS: PRAMIPEXOLE DIHYDROCHLORIDE 0.25 MG TABLET PO SCH ×3 (05:30→21:00)
[2022-01-26] MEDS: ENOXAPARIN NA (PORCINE) 40 MG/0.4 ML DISP.SYRIN SQ SCH (09:19)
[2022-01-26] MEDS: VALSARTAN 160 MG TABLET PO SCH (09:20)
[2022-01-26] MEDS: CEFTRIAXONE 1 GM in DEXTROSE 5%-WATER - 50 ML IVPB SCH ×2 (09:20→09:23)
[2022-01-26] MEDS: PANTOPRAZOLE 40 MG TABLET PO SCH (09:20)
[2022-01-26 09:21] LABS: BASO % 0.7 % (0-2.0); EOS % 4.7 % (0-4.5); HEMATOCRIT 31.4 % (32.4-45.2); HEMOGLOBIN 9.8 GM/dL (10.7-15.3); LYMPH % 13.8 % (8-40); MCHC 31.3 g/dl (32.0-36.0); MEAN CELL VOLUME 63.3 fl (80-96); MEAN PLT VOLUME 8.9 fl (7.5-11.1); MONO % 5.5 % (3.8-10.2); NEUT % 75.3 % (42.8-82.8); PLATELET COUNT 216 10^3/uL (134-434); RBC 4.96 M/mm3 (3.60-5.2); RDW 20.3 % (11.6-15.6)
[2022-01-26 09:25] LABS: MCH 19.8 pg (25.7-33.7)
[2022-01-26 09:41] LABS: BLOOD UREA NITROGEN 11.2 mg/dL (7-18)
[2022-01-26 09:43] LABS: ALBUMIN 3.2 g/dl (3.4-5.0); CALCIUM 8.7 mg/dL (8.5-10.1); MAGNESIUM 1.9 mg/dL (1.8-2.4)
[2022-01-26 09:44] LABS: IRON SERUM 24 ug/dL (50-175)
[2022-01-26 09:45] LABS: PHOSPHOROUS 4.4 mg/dL (2.5-4.9)
[2022-01-26 09:46] LABS: BILIRUBIN,DIRECT 0.1 mg/dL (0.0-0.2); CREATININE 0.6 mg/dL (0.55-1.3); TOTAL IRON BINDING CAPACITY 444 ug/dL (250-450)
[2022-01-26 09:47] LABS: BILIRUBIN,TOTAL 0.3 mg/dL (0.2-1); TOT PROT 7.5 g/dl (6.4-8.2)
[2022-01-26] MEDS ORDERED: diphenhydrAMINE HCL 25 MG CAPSULE (FP) PO ONE ×2 (10:19→20:32)
[2022-01-26 11:36] LABS: ANISOCYTOSIS 3+; MACROCYTOSIS 0
[2022-01-26] MEDS ORDERED: IRON SUCROSE INJECTION 200 MG in SODIUM CHLORIDE 90 ML IVPB ONE (19:30)
[2022-01-27] MEDS: PRAMIPEXOLE DIHYDROCHLORIDE 0.25 MG TABLET PO SCH ×3 (05:04→21:49)
[2022-01-27] MEDS: POLYETHYLENE GLYCOL (HEALTHYLAX) 3350 17 GM PACKET PO SCH ×3 (05:04→21:49)
[2022-01-27] MEDS ORDERED: IRON SUCROSE INJECTION 200 MG in SODIUM CHLORIDE 90 ML IVPB ONE (10:00)
[2022-01-27] MEDS: CEFTRIAXONE 1 GM in DEXTROSE 5%-WATER - 50 ML IVPB SCH (10:18)
[2022-01-27] MEDS: ENOXAPARIN NA (PORCINE) 40 MG/0.4 ML DISP.SYRIN SQ SCH (10:19)
[2022-01-27] MEDS: PANTOPRAZOLE 40 MG TABLET PO SCH (10:20)
[2022-01-27] MEDS: VALSARTAN 160 MG TABLET PO SCH (10:21)
[2022-01-28] MEDS: PRAMIPEXOLE DIHYDROCHLORIDE 0.25 MG TABLET PO SCH ×2 (05:34→14:11)
[2022-01-28] MEDS: POLYETHYLENE GLYCOL (HEALTHYLAX) 3350 17 GM PACKET PO SCH ×2 (05:34→14:11)
[2022-01-28] MEDS: PANTOPRAZOLE 40 MG TABLET PO SCH (10:29)
[2022-01-28] MEDS: CEFTRIAXONE 1 GM in DEXTROSE 5%-WATER - 50 ML IVPB SCH (10:29)
[2022-01-28] MEDS: ENOXAPARIN NA (PORCINE) 40 MG/0.4 ML DISP.SYRIN SQ SCH (10:29)
[2022-01-28 14:14] VITALS: BP 113/74; PULSE 80; RESP 20; TEMP 97.7
== END 2022-01-28 17:15 | disposition home or self-care (01) | DRG 468 ==
LOC: JER 21:03 → JERBED 01-23 04:43 → J7W 01-23 06:28
PROVIDERS: ADMIT Internal Medicine; ATTEND Nurse Practitioner Acute Care
DX: D49.519 Neoplasm of unspecified behavior of unspecified kidney (principal); I13.0 Hypertensive heart and chronic kidney disease with heart failure and stage 1 through stage 4 chronic kidney disease, or unspecified chronic kidney disease; E11.22 Type 2 diabetes mellitus with diabetic chronic kidney disease; D64.9 Anemia, unspecified; G47.33 Obstructive sleep apnea (adult) (pediatric); E66.01 Morbid (severe) obesity due to excess calories; Z68.43 Body mass index [BMI] 50.0-59.9, adult; K21.9 Gastro-esophageal reflux disease without esophagitis; D50.9 Iron deficiency anemia, unspecified; N18.9 Chronic kidney disease, unspecified; I50.9 Heart failure, unspecified; E87.5 Hyperkalemia
CPT/HCPCS: 0241U-QW; 36415; 70450-TC; 71250-TC; 74177-TC; 78306-TC; 80048; 80053; 80076; 81003; 82272; 82570; 82728; 83036; 83540; 83550; 83615; 83690; 83735; 84100; 84156; 84443; 84484; 84703; 85025; 85610; 85730; 87086; 93005; 93010; 99285-25; A9503; J1756; Q9967

== ENCOUNTER 2022-08-13 17:13 | Emergency (ER) | payer OTHER ==
[2022-08-13] MEDS ORDERED: METOCLOPRAMIDE HCL INJECTION 10 MG/2 ML VIAL IVPUSH ONE (17:31)
[2022-08-13] MEDS ORDERED: ACETAMINOPHEN 1000 MG/100 ML BAG IVPB ONE (17:31)
[2022-08-13 18:16] VITALS: BP 152/83; PULSE 88; RESP 20; TEMP 99; BMI 59.5
[2022-08-13] MEDS ORDERED: ACETAMINOPHEN INJECTION 100 ML IVPB ONE (18:38)
[2022-08-13] MEDS ORDERED: METOCLOPRAMIDE HCL INJECTION 10 MG/2 ML VIAL ONE (18:38)
[2022-08-13 18:57] LABS: HEMATOCRIT 32.5 % (32.4-45.2); HEMOGLOBIN 10.2 G/dL (10.7-15.3); MCH 21.2 pg (25.7-33.7); MCHC 31.4 g/dl (32.0-36.0); MEAN CELL VOLUME 67.6 fl (80-96); MEAN PLT VOLUME 9.5 fl (7.5-11.1); PLATELET COUNT 206.2 10^3/uL (134-434); RBC 4.81 10^6/uL (3.60-5.2); RDW 21.9 % (11.6-15.6)
[2022-08-13 19:13] LABS: ALBUMIN 3.1 g/dl (3.4-5.0); BILIRUBIN,TOTAL 0.4 mg/dl (0.2-1); CALCIUM 8.6 mg/dl (8.5-10); CREATININE 0.7 mg/dl (0.55-1.3); POTASSIUM 4.2 mmol/L (3.5-5.1); TOT PROT 7.1 g/dl (6.4-8.2)
[2022-08-13 19:19] LABS: ANISOCYTOSIS 1+; PLATELET ESTIMATE ADEQUATE
== END 2022-08-13 19:47 | disposition home or self-care (01) ==
LOC: FER 17:13
PROC: 3E033NZ Introduction of Analgesics, Hypnotics, Sedatives into Peripheral Vein, Percutaneous Approach (ICD-10-PCS; principal; 2022-08-13)
PROC: 3E033GC Introduction of Other Therapeutic Substance into Peripheral Vein, Percutaneous Approach (ICD-10-PCS; 2022-08-13)
DX: R51.9 Headache, unspecified (principal); R60.0 Localized edema
CPT/HCPCS: 36415; 70450-TC; 71045-TC-FY; 80053; 83880; 85027; 99285-25

== ENCOUNTER 2023-02-26 21:13 | Observation (INO) | payer OTHER ==
[2023-02-26] MEDS ORDERED: ACETAMINOPHEN 1000 MG/100 ML BAG IVPB ONE (22:04)
[2023-02-26] MEDS ORDERED: ACETAMINOPHEN INJECTION 100 ML IVPB ONE (22:15)
[2023-02-26 22:19] LABS: HEMATOCRIT 35.3 % (32.4-45.2); HEMOGLOBIN 11.2 G/dL (10.7-15.3); MCH 21.2 pg (25.7-33.7); MCHC 31.6 g/dl (32.0-36.0); MEAN CELL VOLUME 67.2 fl (80-96); MEAN PLT VOLUME 10.3 fl (7.5-11.1); PLATELET COUNT 245.1 10^3/uL (134-434); RBC 5.26 10^6/uL (3.60-5.2); RDW 21.8 % (11.6-15.6); WHITE BLOOD COUNT 9.5 10^3/uL (4.0-10.8)
[2023-02-26 22:23] LABS: INR 1.11 (0.83-1.09); PROTHROMBIN TIME (PATIENT) 12.9 SEC (9.7-13.0)
[2023-02-26 22:34] LABS: ALBUMIN 3.8 g/dl (3.4-5.0); BILIRUBIN,TOTAL 0.3 mg/dl (0.2-1); CALCIUM 8.8 mg/dl (8.5-10.1); CREATININE 0.7 mg/dl (0.6-1.3); POTASSIUM 4.2 mmol/L (3.5-5.1); TOT PROT 6.9 g/dl (6.4-8.2)
[2023-02-26 22:36] LABS: ANISOCYTOSIS 1+; PLATELET ESTIMATE ADEQUATE
[2023-02-27] MEDS ORDERED: morphine CARPU-JECT 2 MG/1 ML DISP.SYRIN IVPUSH ONE (01:16)
[2023-02-27] MEDS ORDERED: PRAMIPEXOLE DIHYDROCHLORIDE 0.25 MG TABLET PO ONE (02:30)
[2023-02-27] MEDS ORDERED: PANTOPRAZOLE SODIUM 40 MG VIAL IVPB ONE (02:38)
[2023-02-27] MEDS ORDERED: PANTOPRAZOLE SODIUM 40 MG VIAL ONE (02:45)
[2023-02-27] MEDS ORDERED: DOCUSATE SODIUM 100 MG CAPSULE (FP) PO PRN (04:23)
[2023-02-27] MEDS ORDERED: ACETAMINOPHEN 1000 MG/100 ML BAG IVPB PRN (04:29)
[2023-02-27] MEDS: SODIUM CHLORIDE 1,000 ML IV SCH (04:30)
[2023-02-27] MEDS ORDERED: ACETAMINOPHEN INJECTION 100 ML IVPB ONE (05:49)
[2023-02-27 06:52] VITALS: BMI 54.3
[2023-02-27] MEDS ORDERED: ALBUTEROL SO4 2.5/IPRATROPIUM 0.5 INH SOL 3 ML VIAL.NEB. NEB PRN (07:23)
[2023-02-27 07:52] LABS: HEMATOCRIT 32.9 % (32.4-45.2); HEMOGLOBIN 10.1 G/dL (10.7-15.3); MCH 20.8 pg (25.7-33.7); MCHC 30.7 g/dl (32.0-36.0); MEAN CELL VOLUME 67.6 fl (80-96); MEAN PLT VOLUME 10.3 fl (7.5-11.1); PLATELET COUNT 209.6 10^3/uL (134-434); RBC 4.86 10^6/uL (3.60-5.2); WHITE BLOOD COUNT 9.8 10^3/uL (4.0-10.8)
[2023-02-27 08:05] LABS: ADD RBC MORPHOLOGY YES
[2023-02-27 08:33] LABS: CALCIUM 8.9 mg/dl (8.5-10.1); CREATININE 0.7 mg/dl (0.6-1.3); MAGNESIUM 1.7 mg/dL (1.8-2.4); PHOSPHOROUS 4.4 (2.5-4.9)
[2023-02-27] MEDS ORDERED: MAGNESIUM SULF 50% (8.12 MEQ/2 ML-1 GM VIAL) IVPB ONE (09:06)
[2023-02-27] MEDS ORDERED: ONDANSETRON 4 MG/2 ML VIAL IVPUSH PRN (09:32)
[2023-02-27] MEDS ORDERED: MAGNESIUM 1GM/D5W 100ML - 100 ML IVPB IVPB ONE (10:00)
[2023-02-27] MEDS: PANTOPRAZOLE SODIUM 40 MG VIAL IVPUSH SCH ×2 (10:10→21:49)
[2023-02-27 10:37] LABS: ANISOCYTOSIS 2+; PLATELET ESTIMATE ADEQUATE
[2023-02-28] MEDS: SODIUM CHLORIDE 1,000 ML IV SCH ×3 (05:04→13:04)
[2023-02-28 09:42] LABS: HEMATOCRIT 33.5 % (32.4-45.2); HEMOGLOBIN 10.5 GM/dL (10.7-15.3); MCH 20.3 pg (25.7-33.7); MCHC 31.3 g/dl (32.0-36.0); MEAN CELL VOLUME 64.9 fl (80-96); PLATELET COUNT 211 10^3/uL (134-434); RBC 5.17 M/mm3 (3.60-5.2); RDW 20.5 % (11.6-15.6)
[2023-02-28] MEDS ORDERED: ALBUTEROL SO4 2.5/IPRATROPIUM 0.5 INH SOL 3 ML VIAL.NEB. NEB PRN (10:05)
[2023-02-28] MEDS ORDERED: ONDANSETRON 4 MG/2 ML VIAL IVPUSH PRN (10:05)
[2023-02-28] MEDS ORDERED: DOCUSATE SODIUM 100 MG CAPSULE (FP) PO PRN (10:05)
[2023-02-28 10:29] LABS: BLOOD UREA NITROGEN 9.6 mg/dL (7-18); CALCIUM 8.6 mg/dL (8.5-10.1); CREATININE 0.7 mg/dL (0.55-1.3); MAGNESIUM 2.1 mg/dL (1.8-2.4); PHOSPHOROUS 4.3 mg/dL (2.5-4.9); POTASSIUM 4.1 mmol/L (3.5-5.1)
[2023-02-28] MEDS: PANTOPRAZOLE SODIUM 40 MG VIAL IVPUSH SCH ×2 (11:28→22:03)
[2023-03-01 09:35] LABS: BASO % 0.7 % (0-2.0); EOS % 4.1 % (0-4.5); HEMATOCRIT 33.5 % (32.4-45.2); HEMOGLOBIN 10.3 GM/dL (10.7-15.3); LYMPH % 15.3 % (8-40); MCH 20.6 pg (25.7-33.7); MCHC 30.8 g/dl (32.0-36.0); MEAN CELL VOLUME 66.7 fl (80-96); MEAN PLT VOLUME 9.6 fl (7.5-11.1); MONO % 6.3 % (3.8-10.2); NEUT % 73.6 % (42.8-82.8); PLATELET COUNT 225 10^3/uL (134-434); RBC 5.03 M/mm3 (3.60-5.2); RDW 20.5 % (11.6-15.6); WHITE BLOOD COUNT 7.8 K/mm3 (4.0-10.0)
[2023-03-01 09:41] LABS: POTASSIUM 3.9 mmol/L (3.5-5.1)
[2023-03-01 09:51] LABS: BLOOD UREA NITROGEN 9.5 mg/dL (7-18); CALCIUM 8.9 mg/dL (8.5-10.1)
[2023-03-01 09:54] LABS: CREATININE 0.8 mg/dL (0.55-1.3)
[2023-03-01 09:56] LABS: BILIRUBIN,TOTAL 0.4 mg/dL (0.2-1); TOT PROT 7.2 g/dl (6.4-8.2)
[2023-03-01] MEDS: SODIUM CHLORIDE 1,000 ML IV SCH ×2 (10:24→18:28)
[2023-03-01] MEDS: PANTOPRAZOLE SODIUM 40 MG VIAL IVPUSH SCH ×2 (10:30→22:56)
[2023-03-02] MEDS: SODIUM CHLORIDE 1,000 ML IV SCH (04:59)
[2023-03-02 09:11] LABS: BASO % 0.5 % (0-2.0); HEMATOCRIT 33.7 % (32.4-45.2); HEMOGLOBIN 10.3 GM/dL (10.7-15.3); LYMPH % 16.2 % (8-40); MCH 20.2 pg (25.7-33.7); MCHC 30.5 g/dl (32.0-36.0); MEAN CELL VOLUME 66.1 fl (80-96); MEAN PLT VOLUME 9.1 fl (7.5-11.1); MONO % 6.7 % (3.8-10.2); NEUT % 71.6 % (42.8-82.8); PLATELET COUNT 179 10^3/uL (134-434); RBC 5.09 M/mm3 (3.60-5.2); RDW 20.1 % (11.6-15.6); WHITE BLOOD COUNT 7.2 K/mm3 (4.0-10.0)
[2023-03-02 09:21] LABS: POTASSIUM 3.9 mmol/L (3.5-5.1)
[2023-03-02 09:24] LABS: CALCIUM 8.7 mg/dL (8.5-10.1)
[2023-03-02 09:28] LABS: CREATININE 0.7 mg/dL (0.55-1.3)
[2023-03-02] MEDS: PANTOPRAZOLE SODIUM 40 MG VIAL IVPUSH SCH ×2 (10:05→22:20)
[2023-03-02 10:23] LABS: ANISOCYTOSIS 3+; MACROCYTOSIS 0
[2023-03-02] MEDS ORDERED: SODIUM CHLORIDE 0.45% 1,000 ML IV SCH (11:30)
[2023-03-02] MEDS ORDERED: MIDAZOLAM HCL 2 MG/2 ML SINGLE DOSE VIAL ONE (13:34)
[2023-03-02] MEDS: LISINOPRIL 10 MG TABLET PO SCH (18:31)
[2023-03-03 07:13] VITALS: BP 142/83; PULSE 74; RESP 15; TEMP 98.1
[2023-03-03 07:54] LABS: HEMATOCRIT 32.9 % (32.4-45.2); HEMOGLOBIN 10.3 GM/dL (10.7-15.3); MCH 20.4 pg (25.7-33.7); MCHC 31.2 g/dl (32.0-36.0); MEAN CELL VOLUME 65.5 fl (80-96); MEAN PLT VOLUME 8.9 fl (7.5-11.1); PLATELET COUNT 178 10^3/uL (134-434); RBC 5.02 M/mm3 (3.60-5.2); RDW 20.8 % (11.6-15.6)
[2023-03-03 08:15] LABS: POTASSIUM 3.8 mmol/L (3.5-5.1)
[2023-03-03 08:17] LABS: CALCIUM 8.8 mg/dL (8.5-10.1)
[2023-03-03 08:18] LABS: BLOOD UREA NITROGEN 7.2 mg/dL (7-18)
[2023-03-03 08:21] LABS: CREATININE 0.7 mg/dL (0.55-1.3)
[2023-03-03] MEDS: PANTOPRAZOLE SODIUM 40 MG VIAL IVPUSH SCH (09:47)
[2023-03-03] MEDS: LISINOPRIL 10 MG TABLET PO SCH (09:48)
[2023-03-03] MEDS ORDERED: PANTOPRAZOLE 40 MG TABLET PO SCH (10:45)
== END 2023-03-03 12:00 | disposition home or self-care (01) ==
LOC: FER 21:13 → FM/S 02-27 05:26 → J7W 02-28 04:23
PROVIDERS: ADMIT Internal Medicine; ATTEND Internal Medicine
PROC: 3E033NZ Introduction of Analgesics, Hypnotics, Sedatives into Peripheral Vein, Percutaneous Approach (ICD-10-PCS; principal; 2023-02-27)
PROC: 3E033GC Introduction of Other Therapeutic Substance into Peripheral Vein, Percutaneous Approach (ICD-10-PCS; 2023-02-27)
PROC: 3E0337Z Introduction of Electrolytic and Water Balance Substance into Peripheral Vein, Percutaneous Approach (ICD-10-PCS; 2023-02-27)
PROC: 0DB98ZX Excision of Duodenum, Via Natural or Artificial Opening Endoscopic, Diagnostic (ICD-10-PCS; 2023-02-27)
PROC: 0DB78ZX Excision of Stomach, Pylorus, Via Natural or Artificial Opening Endoscopic, Diagnostic (ICD-10-PCS; 2023-02-27)
PROC: 0DB38ZX Excision of Lower Esophagus, Via Natural or Artificial Opening Endoscopic, Diagnostic (ICD-10-PCS; 2023-02-27)
DX: T18.128A Food in esophagus causing other injury, initial encounter (principal); K20.90 Esophagitis, unspecified without bleeding; R07.9 Chest pain, unspecified; I10 Essential (primary) hypertension; K21.9 Gastro-esophageal reflux disease without esophagitis; I50.9 Heart failure, unspecified; E11.9 Type 2 diabetes mellitus without complications; G25.81 Restless legs syndrome; Z79.01 Long term (current) use of anticoagulants; X58.XXXA Exposure to other specified factors, initial encounter; Y93.89 Activity, other specified; Y92.89 Other specified places as the place of occurrence of the external cause; Z85.3 Personal history of malignant neoplasm of breast; M32.9 Systemic lupus erythematosus, unspecified; K92.9 Disease of digestive system, unspecified; Z86.718 Personal history of other venous thrombosis and embolism
CPT/HCPCS: 36415; 71045-TC-FY; 71260-TC; 80048; 80053; 82962; 83735; 84100; 85025; 85027; 85610; 85730; 93005; 93970-TC; 96361; 96374; 96375; 96376; 99285-25; G0378; Q9967

== ENCOUNTER 2023-06-12 21:12 | Inpatient (IN) | payer OTHER ==
[2023-06-12 21:23] VITALS: BMI 52.0
[2023-06-12] MEDS ORDERED: DEXAMETHASONE SOD PHOSPHATE 10 MG/1 ML VIAL ONE (21:40)
[2023-06-12] MEDS ORDERED: TERBUTALINE SULFATE 1 MG/1 ML VIAL SQ ONE (21:49)
[2023-06-12] MEDS: DEXAMETHASONE SOD PHOSPHATE 10 MG/1 ML VIAL IM ONE (22:00)
[2023-06-12] MEDS: TERBUTALINE SULFATE 1 MG/1 ML VIAL SQ ONE (22:01)
[2023-06-12 22:11] LABS: VENOUS BASE EXCESS 3.4 mmol/L (-2-2); VENOUS O2 SATURATION 27.5 % (70-80); VENOUS PCO2 47.8 mmHg (38-52); VENOUS PH 7.4 (7.310-7.410)
[2023-06-12] MEDS: methylPREDNISolone NA SUCC 125 MG/2 ML VIAL IVPUSH ONE (22:16)
[2023-06-12 22:18] LABS: INR 1.29 (0.83-1.09); PROTHROMBIN TIME (PATIENT) 14.9 SEC (9.7-13.0)
[2023-06-12] MEDS: ALBUTEROL SO4 2.5/IPRATROPIUM 0.5 INH SOL 3 ML VIAL.NEB. NEB SCH (22:19)
[2023-06-12 22:21] LABS: ACTIVATED PTT 35.8 SECONDS (25.2-36.5); BASO % 0.8 % (0-2.0); EOS % 2.2 % (0-4.5); HEMATOCRIT 32.8 % (32.4-45.2); HEMOGLOBIN 10.4 GM/dL (10.7-15.3); LYMPH % 24.1 % (8-40); MCH 20.4 pg (25.7-33.7); MCHC 31.8 g/dl (32.0-36.0); MEAN CELL VOLUME 64.4 fl (80-96); MONO % 12.6 % (3.8-10.2); NEUT % 60.3 % (42.8-82.8); PLATELET COUNT 155 10^3/uL (134-434); RDW 22.1 % (11.6-15.6); WHITE BLOOD COUNT 5.3 K/mm3 (4.0-10.0)
[2023-06-12 22:33] LABS: POTASSIUM 3.7 mmol/L (3.5-5.1)
[2023-06-12 22:35] LABS: CALCIUM 8.1 mg/dL (8.5-10.1)
[2023-06-12 22:36] LABS: ALBUMIN 3.2 g/dl (3.4-5.0); BLOOD UREA NITROGEN 11.9 mg/dL (7-18); MAGNESIUM 1.8 mg/dL (1.8-2.4)
[2023-06-12 22:39] LABS: CREATININE 0.8 mg/dL (0.55-1.3)
[2023-06-12 22:41] LABS: BILIRUBIN,TOTAL 0.4 mg/dL (0.2-1); TOT PROT 7.8 g/dl (6.4-8.2)
[2023-06-12 22:44] LABS: N-TERMINAL BNP 109.5 pg/ml (5-125)
[2023-06-12 23:23] LABS: ANISOCYTOSIS 2+; OVALOCYTE 2+; TEAR DROP CELLS 1+
[2023-06-12 23:28] LABS: PLATELET ESTIMATE ADEQUATE
[2023-06-12] MEDS ORDERED: ALBUTEROL SO4 0.083% IH SOL 2.5 MG/3 ML VIAL.NEB. NEB ONE (23:36)
[2023-06-12] MEDS ORDERED: AZITHROMYCIN IVPB 500 MG/250 ML BAG IVPB ONE (23:36)
[2023-06-12] MEDS ORDERED: CEFTRIAXONE 1 GM/50 ML BAG ONE (23:36)
[2023-06-12] MEDS: ALBUTEROL SULFATE 0.021% (0.63 MG/3 ML) VIAL.NEB NEB ONE (23:43)
[2023-06-12] MEDS: CEFTRIAXONE 1,000 MG in DEXTROSE 5%-WATER - 50 ML IVPB ONE (23:43)
[2023-06-13] MEDS: AZITHROMYCIN IVPB 500 MG in DEXTROSE 5%-WATER - 250 ML IVPB ONE (00:22)
[2023-06-13] MEDS ORDERED: ALBUTEROL SO4 HFA INHALER IH PRN (00:55)
[2023-06-13] MEDS ORDERED: ALBUTEROL SO4 2.5/IPRATROPIUM 0.5 INH SOL 3 ML VIAL.NEB. NEB ONE (01:50)
[2023-06-13] MEDS: ALBUTEROL SO4 2.5/IPRATROPIUM 0.5 INH SOL 3 ML VIAL.NEB. NEB ONE (01:58)
[2023-06-13] MEDS: ALBUTEROL SO4 2.5/IPRATROPIUM 0.5 INH SOL 3 ML VIAL.NEB. NEB SCH ×2 (07:33→15:04)
[2023-06-13 07:59] LABS: POTASSIUM 4.2 mmol/L (3.5-5.1)
[2023-06-13 08:03] LABS: CALCIUM 8.8 mg/dL (8.5-10.1)
[2023-06-13 08:04] LABS: ALBUMIN 3.1 g/dl (3.4-5.0); BLOOD UREA NITROGEN 13.2 mg/dL (7-18); MAGNESIUM 2.1 mg/dL (1.8-2.4)
[2023-06-13 08:07] LABS: CREATININE 0.6 mg/dL (0.55-1.3); PHOSPHOROUS 4.7 mg/dL (2.5-4.9)
[2023-06-13 08:08] LABS: BILIRUBIN,TOTAL 0.3 mg/dL (0.2-1); TOT PROT 8.1 g/dl (6.4-8.2)
[2023-06-13 08:09] LABS: BASO % 0.3 % (0-2.0); HEMATOCRIT 33.2 % (32.4-45.2); HEMOGLOBIN 10.2 GM/dL (10.7-15.3); LYMPH % 14.7 % (8-40); MCHC 30.7 g/dl (32.0-36.0); MEAN CELL VOLUME 65.2 fl (80-96); MEAN PLT VOLUME 9.5 fl (7.5-11.1); MONO % 2.5 % (3.8-10.2); NEUT % 82.5 % (42.8-82.8); RBC 5.08 M/mm3 (3.60-5.2); RDW 21.4 % (11.6-15.6); WHITE BLOOD COUNT 3.8 K/mm3 (4.0-10.0)
[2023-06-13] MEDS: ENOXAPARIN NA (PORCINE) 40 MG/0.4 ML DISP.SYRIN SQ SCH (09:18)
[2023-06-13] MEDS: predniSONE 20 MG TABLET (UD) PO SCH (09:19)
[2023-06-13] MEDS: AZITHROMYCIN 250 MG TABLET PO SCH (09:19)
[2023-06-13] MEDS: BUDESONIDE/FORMETEROL FUMARATE 80/4.5 mcg INHALER IH SCH (09:36)
[2023-06-13 09:42] LABS: PLATELET COUNT 167 10^3/uL (134-434)
[2023-06-13] MEDS: HYDROCHLOROTHIAZIDE 12.5 MG CAPSULE (FP) PO SCH (16:50)
[2023-06-13] MEDS: VALSARTAN 160 MG TABLET PO SCH (16:50)
[2023-06-13] MEDS: CEFTRIAXONE 1 GM in DEXTROSE 5%-WATER - 50 ML IVPB SCH (16:50)
[2023-06-13] MEDS: PRAMIPEXOLE DIHYDROCHLORIDE 0.25 MG TABLET PO SCH (17:19)
[2023-06-13] MEDS: INSULIN ASPART SLIDING SCALE (NOVOLOG) 1 VIAL SQ SCH (17:19)
[2023-06-13] MEDS ORDERED: RIVAROXABAN 20 MG TABLET PO SCH (18:00)
[2023-06-13] MEDS ORDERED: MONTELUKAST NA 5 MG TAB.CHEW PO SCH (22:00)
[2023-06-13] MEDS: PANTOPRAZOLE 40 MG TABLET PO SCH (22:20)
[2023-06-14 07:54] LABS: HEMATOCRIT 32.5 % (32.4-45.2); HEMOGLOBIN 10.3 GM/dL (10.7-15.3); MCH 20.7 pg (25.7-33.7); MCHC 31.8 g/dl (32.0-36.0); MEAN CELL VOLUME 65.1 fl (80-96); MEAN PLT VOLUME 8.9 fl (7.5-11.1); PLATELET COUNT 186 10^3/uL (134-434); RDW 21.6 % (11.6-15.6); WHITE BLOOD COUNT 6.9 K/mm3 (4.0-10.0)
[2023-06-14 08:10] LABS: POTASSIUM 4.1 mmol/L (3.5-5.1)
[2023-06-14 08:17] LABS: BLOOD UREA NITROGEN 24.3 mg/dL (7-18); CALCIUM 8.4 mg/dL (8.5-10.1)
[2023-06-14 08:20] LABS: CREATININE 0.7 mg/dL (0.55-1.3)
[2023-06-14 08:22] LABS: BILIRUBIN,TOTAL 0.3 mg/dL (0.2-1); TOT PROT 7.7 g/dl (6.4-8.2)
[2023-06-14] MEDS: SODIUM CHLORIDE 1,000 ML IV STA (12:07)
[2023-06-14] MEDS: TRIMETHOBENZAMIDE HCL 200MG/2ML INJ IM PRN (12:07)
[2023-06-14] MEDS: RIVAROXABAN 20 MG TABLET PO SCH (17:37)
[2023-06-14] MEDS: SODIUM CHLORIDE 1,000 ML IV SCH (18:01)
[2023-06-15 08:21] LABS: HEMATOCRIT 33.1 % (32.4-45.2); MCHC 30.1 g/dl (32.0-36.0); MEAN CELL VOLUME 66.2 fl (80-96); MEAN PLT VOLUME 9.1 fl (7.5-11.1); PLATELET COUNT 185 10^3/uL (134-434); RDW 22.3 % (11.6-15.6)
[2023-06-15 08:25] LABS: MCH 19.9 pg (25.7-33.7)
[2023-06-15 08:28] LABS: POTASSIUM 3.7 mmol/L (3.5-5.1)
[2023-06-15 08:39] LABS: BLOOD UREA NITROGEN 21.6 mg/dL (7-18)
[2023-06-15 08:42] LABS: CREATININE 0.6 mg/dL (0.55-1.3)
[2023-06-15] MEDS: predniSONE 10 MG TABLET (UD) PO SCH (09:38)
[2023-06-15 13:04] VITALS: BP 125/73; PULSE 72; RESP 18; TEMP 97.8
== END 2023-06-15 12:14 | disposition home or self-care (01) | DRG 140 ==
LOC: JER 21:12 → JERBED 23:54 → J4S 06-13 03:02
PROVIDERS: ADMIT Student in an Organized Health Care Education/Training Program; ATTEND Internal Medicine
DX: J44.0 Chronic obstructive pulmonary disease with (acute) lower respiratory infection (principal); J44.1 Chronic obstructive pulmonary disease with (acute) exacerbation; K21.9 Gastro-esophageal reflux disease without esophagitis; G25.81 Restless legs syndrome; I11.0 Hypertensive heart disease with heart failure; I50.9 Heart failure, unspecified; M32.9 Systemic lupus erythematosus, unspecified; J96.01 Acute respiratory failure with hypoxia; Z86.718 Personal history of other venous thrombosis and embolism; G47.33 Obstructive sleep apnea (adult) (pediatric); J18.9 Pneumonia, unspecified organism; E66.01 Morbid (severe) obesity due to excess calories; Z68.43 Body mass index [BMI] 50.0-59.9, adult; F41.8 Other specified anxiety disorders; J45.901 Unspecified asthma with (acute) exacerbation; I95.89 Other hypotension; E11.9 Type 2 diabetes mellitus without complications; Z79.84 Long term (current) use of oral hypoglycemic drugs
CPT/HCPCS: 0241U-QW; 36415; 71045-TC-FY; 71250-TC; 80048; 80053; 82550; 82803; 82962; 83605; 83735; 83880; 84100; 84484; 84703; 85025; 85027; 85610; 85730; 86850; 86900; 86901; 87040; 87899; 93005; 93010; 94640; 94660; 94761; 99285-25; J1100

== ENCOUNTER 2023-06-19 19:56 | Emergency (ER) | payer OTHER ==
[2023-06-19 20:01] VITALS: BP 142/69; PULSE 93; RESP 18; TEMP 97.9; BMI 52.9
[2023-06-19] MEDS ORDERED: methylPREDNISolone NA SUCC 125 MG/2 ML VIAL IVPB ONE (21:20)
[2023-06-19] MEDS ORDERED: METOCLOPRAMIDE HCL INJECTION 10 MG/2 ML VIAL IVPB ONE (21:21)
[2023-06-19] MEDS: ALBUTEROL SO4 2.5/IPRATROPIUM 0.5 INH SOL 3 ML VIAL.NEB. NEB SCH (22:14)
[2023-06-19] MEDS ORDERED: ALBUTEROL SO4 2.5/IPRATROPIUM 0.5 INH SOL 3 ML VIAL.NEB. NEB ONE (22:15)
[2023-06-19 22:50] LABS: POTASSIUM 3.8 mmol/L (3.5-5.1)
[2023-06-19 22:56] LABS: BLOOD UREA NITROGEN 12.6 mg/dL (7-18); CALCIUM 8.1 mg/dL (8.5-10.1)
[2023-06-19 22:58] LABS: CREATININE 0.6 mg/dL (0.55-1.3)
[2023-06-19 23:00] LABS: BILIRUBIN,TOTAL 0.3 mg/dL (0.2-1)
== END 2023-06-19 23:34 | disposition left against medical advice (07) ==
LOC: JER 19:56
PROC: 3E0F7GC Introduction of Other Therapeutic Substance into Respiratory Tract, Via Natural or Artificial Opening (ICD-10-PCS; principal; 2023-06-19)
DX: R06.02 Shortness of breath (principal); R51.9 Headache, unspecified; R05.9 Cough, unspecified; R09.81 Nasal congestion; Z20.822 Contact with and (suspected) exposure to COVID-19
CPT/HCPCS: 0241U-QW; 36415; 71046-TC-FY; 80053; 84484; 84703; 99284-25

== ENCOUNTER 2023-10-05 06:04 | Day surgery (SDC) | payer OTHER ==
[2023-09-30 14:28] VITALS: BMI 56.2
[2023-10-05 09:59] VITALS: RESP 16
[2023-10-05 10:25] VITALS: BP 161/77; PULSE 84
[2023-10-05 10:27] VITALS: TEMP 97
== END 2023-10-05 11:23 | disposition home or self-care (01) ==
LOC: JASU-ENDO 06:04
PROVIDERS: ATTEND Internal Medicine Gastroenterology
PROC: 0DB68ZX Excision of Stomach, Via Natural or Artificial Opening Endoscopic, Diagnostic (ICD-10-PCS; 2023-10-05)
PROC: 0DB78ZX Excision of Stomach, Pylorus, Via Natural or Artificial Opening Endoscopic, Diagnostic (ICD-10-PCS; 2023-10-05)
PROC: 0DB38ZX Excision of Lower Esophagus, Via Natural or Artificial Opening Endoscopic, Diagnostic (ICD-10-PCS; 2023-10-05)
PROC: 0DJD8ZZ Inspection of Lower Intestinal Tract, Via Natural or Artificial Opening Endoscopic (ICD-10-PCS; principal; 2023-10-05 08:45)
DX: Z12.11 Encounter for screening for malignant neoplasm of colon (principal); K57.30 Diverticulosis of large intestine without perforation or abscess without bleeding; K64.8 Other hemorrhoids; K21.00 Gastro-esophageal reflux disease with esophagitis, without bleeding; K44.9 Diaphragmatic hernia without obstruction or gangrene; D50.9 Iron deficiency anemia, unspecified; Z87.19 Personal history of other diseases of the digestive system; K29.50 Unspecified chronic gastritis without bleeding
CPT/HCPCS: 82962; 88305-TC; 88312-TC; 88342-TC